=== PATIENT | female | born 1965 | race Caucasian/White ===

== ENCOUNTER 2016-05-06 16:22 | Inpatient (IN) ==
[2016-05-06 18:54] LABS: BASO% 0.1 % (0.0-0.8); EOS# 0.04 X1000 (0.0-0.7); EOS% 0.2 % (0.0-10.0); HEMATOCRIT 30.8 % (37.0-47.0); IMM GRAN# 0.22 X1000 (0.0-0.04); IMM GRAN% 1.1 % (0.0-0.5); LYMPH# 1.52 X1000 (1.2-3.4); LYMPH% 7.6 % (20.5-51.1); MANUAL DIFF NEEDED? NO; MCH 27.4 PG (27-31); MCHC 32.5 g/dL (33-37); MCV 84.4 FL (81-99); MONO# 1.55 X1000 (0.11-0.59); MONO% 7.7 % (1.7-9.3); MPV 10.1 FL (7.4-10.4); NEUT% 83.3 % (42.2-75.2); PLT 421 X1000 (130-400); RBC 3.65 XMIL (4.2-5.4)
[2016-05-06 19:20] LABS: ALBUMIN 3.1 g/dL (3.5-5.0); CALCIUM 9.3 mg/dL (8.8-10.2); POTASSIUM 5.5 mmol/L (3.5-5.1); TOTAL BILIRUBIN 0.35 mg/dL (0.20-1.00); TOTAL PROTEIN 7.5 g/dL (6.3-8.3)
[2016-05-06 20:44] LABS: HEMOGLOBIN A1C 15.8 % (4.8-6.0)
[2016-05-06] MEDS ORDERED: CIPRO 400 MG/D5W 200 ML IV SCH (21:00)
[2016-05-06] MEDS ORDERED: ZOFRAN IV PRN (21:35)
[2016-05-06] MEDS: PROTONIX IV SCH (22:05)
[2016-05-06] MEDS: NS 1,000 ML IV SCH (22:05)
[2016-05-06] MEDS: HUMALOG SUBQ SCH (22:05)
[2016-05-06] MEDS: LIPITOR PO SCH (22:06)
[2016-05-07] MEDS: MERREM 1 GM in NS 50 ML IV SCH ×3 (00:03→23:11)
[2016-05-07] MEDS ORDERED: VELTASSA PO ONE (00:52)
[2016-05-07 01:22] LABS: URINE MICRO REVIEW NEEDED? NO; URINE SOURCE CLEAN CATCH
[2016-05-07 01:26] LABS: BILIRUBIN URINE NEGATIVE (NEGATIVE); BLOOD URINE NEGATIVE (NEGATIVE); COLOR YELLOW; GLUCOSE URINE >1000 mg/dL (NEGATIVE); LEUKOCYTES URINE SMALL (NEGATIVE); NITRITE URINE NEGATIVE (NEGATIVE); PROTEIN URINE NEGATIVE (NEGATIVE); SP GRAVITY URINE 1.018; TURBIDITY URINE CLEAR (CLEAR); UROBILINOGEN URINE NORMAL (NORMAL)
[2016-05-07 01:28] LABS: UR EPITHELIAL CELLS <10 /HPF (<10); URINE BACTERIA NEGATIVE /HPF; URINE CULTURE NEEDED? YES; URINE RBC <10 /HPF (<10)
--- NOTE | 2016-05-07 03:12 | HISTORY AND PHYSICAL ---
DATE OF ADMISSION: 05/06/2016 HISTORY OF PRESENT ILLNESS: Ms. Blackwood is a 51-year-old female who was direct admission to the hospital today under the care of Dr. Walter with podiatry. The patient presented to his office today for complaints of a wound on her right great toe. The patient reports that she first noted a sore on her right great toe approximately 2 weeks ago and it progressively has gotten worse. The patient reports that she has also had some previous problems with sores to her right lower extremity that she has been seeing a gun stock checker for as well. The patient had approximately 2 quarter sized wounds noted to her right [place] area. The patient also has some erythema noted in the surrounding areas around these wounds as well. On examination, the patient's right great toe is swollen and also has some necrotic tissue noted. There is some erythema that extends into her foot as well. The patient also reports that she has been running fever. She states that approximately 2 weeks ago she went to an urgent care and was diagnosed with an upper respiratory infection and was placed on an antibiotic. She states that she went back approximately 1 week later because she was not feeling better and was diagnosed with the flu, and was also given a Tamiflu prescription. The patient also does report having a nonproductive cough as well. The patient denies any pain in her foot at this time, though she does report some decreased sensation though this has been ongoing for quite some time and could likely be related to diabetic neuropathy. The patient does also report some associated symptoms of headache and dizziness over the past few weeks as well. The patient does state that when her blood sugars have been elevated in the past, she also had similar symptoms. The patient states that for the past 2 weeks that she has not been taking her diabetic medications especially her insulin due to she has not been eating much. She has had decreased appetite, decreased oral intake of food as well as fluids. She has had some nausea as well. The patient was seen by Dr. Walter today in his office and was diagnosed with gangrene of her right great toe. Dr. Walter direct admitted her under his care and consulted the hospitalist service for medical management. He plans to perform amputation of her right great toe and any infected tissue in the right foot as well. Also, upon examination, the patient did have some bilateral crackles noted upon auscultation. Chest x-ray does appear to show that the patient has a left lower lobe pneumonia, so at this time we will treat her for this as well. We will collect blood cultures as well as sputum cultures. REVIEW OF SYSTEMS: A 14-point review of systems was conducted with the patient and all were negative except for pertinent positives mentioned in above HPI. The patient denies any chest pain, shortness of breath, abdominal pain, vomiting, diarrhea, or constipation. She denies any dysuria, urinary frequency, or pain in the lower extremities. PAST MEDICAL HISTORY: 1. Diabetes mellitus type 2. 2. Hypertension. 3. Hyperlipidemia. PAST SURGICAL HISTORY: 1. Hysterectomy. 2. Tubal ligation. SOCIAL HISTORY: Patient denies tobacco, alcohol, or illicit drug use. She currently works at [employer] in [place]. She does report having to stand for long hours on her feet at work. FAMILY MEDICAL HISTORY: Positive for diabetes mellitus, hypertension, and congestive heart failure in her father. Her biological mother with cervical cancer. Her sister has a history of colon cancer and thyroid disease. ALLERGIES: Patient reports allergy to penicillin stating she had some slight swelling of her lips and a rash on her neck and chest. She denied any swelling of her throat, tongue, or shortness of breath. HOME MEDICATIONS: 1. Amlodipine 5 mg p.o. daily. 2. Lipitor 80 mg p.o. daily. 3. Benadryl Allergy 25 mg p.o. daily. 4. Doxycycline 100 mg p.o. daily. 5. Famotidine 20 mg p.o. daily. 6. Furosemide 20 mg p.o. daily. 7. Gemfibrozil 600 mg p.o. daily. 8. Novolin 70/30 at 70 units subQ b.i.d. 9. Metformin 1000 mg p.o. b.i.d. 10.Ramipril 10 mg p.o. daily. 11.Onglyza 5 mg p.o. daily. 12.Maxzide 37.5/25 mg capsule 1 p.o. daily. DIAGNOSTIC DATA: Laboratory results: White blood cell count 20.09, red blood cell count 3.65, hemoglobin 10, hematocrit 30.8, platelet count 421. Sodium 134, potassium 5.5, chloride 79, bicarb 24, BUN 50, creatinine 1.6, GFR is 34. Glucose is 580, hemoglobin A1c is 15.8. Calcium 9.3. Total bilirubin is 0.35. AST 21, ALT 17, alkaline phosphatase 174. EKG shows sinus tachycardia at the rate of 112, QTC is 450. Chest x-ray shows left lower lobe pneumonia, though we are awaiting official radiology over read. PHYSICAL EXAMINATION: VITAL SIGNS: Temperature of 100.4, heart rate 110, respirations 20, blood pressure 112/53, oxygen saturation is 96% room air. GENERAL: Ms. Blackwood is a pleasant, obese, 51-year-old female who is resting comfortably in the inpatient bed. She is in no acute distress. She is awake, alert, and able to answer all questions appropriately. HEENT: Head is atraumatic, normocephalic. Pupils are equal, round, reactive to light, 3 mm bilaterally and brisk. Oral mucosa is moist. Oropharynx was clear. NECK: Supple. CARDIOVASCULAR: Patient has S1, S2 present. She does have a slight systolic murmur noted. The patient has regular heart rate and rhythm. PULMONARY: Patient has symmetrical chest expansion noted bilaterally. Lung sounds are clear to auscultation in bilateral upper yuen. In the lower lung yuen, the patient did have crackles bilaterally. ABDOMEN: Soft, nontender, nondistended. Patient does have a protuberant abdomen noted. Bowel sounds were present in all 4 quadrants. Normoactive. EXTREMITIES: The patient does have necrotic tissue noted to her right great toe with area of surrounding erythema which extends into her midfoot as well. There is some slight swelling to this area as well. The patient does have some erythema that surrounds 2 approximately quarter size sores on her right anterior lower extremity. These wounds are open though and do not have any drainage or active bleeding noted. Except for these wounds that I just described, all other extremities are within normal limits. No other signs of clubbing, cyanosis, and edema noted. Pulse, motor and sensory are intact to all extremities as well. Pedal pulses are 3+ bilaterally. The patient does report she has some slight decreased sensation in her bilateral feet. She reports this is not a new onset. INTEGUMENTARY: Patient's skin is pink, warm, dry, and intact. No lesions or sores noted except for the previously mentioned sores noted to her right great toe and right anterior lower extremity. NEUROLOGICAL: Patient is alert and oriented to person, place, time, and situation. Cranial nerves II through XII are grossly intact. ASSESSMENT AND PLAN: 1. Gangrene of the right great toe. Dr. Walter does plan to do a right great toe amputation in the morning. We will refer to him for further management of this. The patient has been Merrem 1 gram IV q12 hours for renal dosing due to her infected right great toe as well as diagnosis of left lower lobe pneumonia. Blood cultures have been obtained. We will await the results of those and continue to follow. 2. Left lower lobe pneumonia. We will continue with the above treatment with Merrem antibiotic. Sputum culture and blood culture have been obtained. We will do incentive spirometry, aggressive pulmonary toilet, DuoNeb, TOBY nebulizer treatments q4-6 hours p.r.n. as needed. 3. Leukocytosis. This is likely secondary to right great toe infection and pneumonia. We will continue above treatment for #1 and #2. Continue to follow. 4. Uncontrolled diabetes mellitus type 2. The patient did admit that she has not been taking her diabetic medications as prescribed due to she has had a decreased appetite. The patient's hemoglobin A1c was elevated at 15.8. At this time, the patient's kidney function is also down with creatinine of 1.6 and GFR of 34. We will hold her oral diabetic medications and place her on a high dose sliding-scale insulin Lispro. We also placed an order for the patient to have a assurance senior manager consultation as well. We will do pattern fingerstick blood sugars and continue to follow. 5. Acute kidney injury. This could be likely secondary to decreased oral fluid intake as well as infection and could have been complicated by oral diabetic medications as well as blood pressure medicines. We will continue with gentle fluid resuscitation of normal saline at 100 mL an hour and we will hold her oral diabetic medications and Ramipril at this time. 6. Hypertension. We will continue the patient on Norvasc. We will hold her Ramipril. Blood pressures at this time are controlled with last blood pressure being 112/53. We will monitor this closely and continue to follow. 7. Hyperlipidemia. We will continue the patient's atorvastatin. The patient will be placed on the medical floor with telemetry. She will have vital signs q8 hours, strict intake and output, pattern fingerstick blood sugars, DVT prophylaxis at this time and until surgery. We will provide her with SCDs. We will await the patient to have surgery and we will monitor her condition to determine further VTE prophylaxis. She will be placed on a diabetic diet. We will also perform an echo tomorrow to further evaluate her cardiac murmur. We will also repeat a CBC, BMP, and also placed order for magnesium, PT and PTT in the morning. The patient's potassium was slightly elevated at 5.5. We have placed an order for 1 time dose of Veltassa 8.4 grams p.o. and will repeat an BMP in the morning and monitor this closely. Further orders and recommendations pending hospital course, diagnostic studies, and physician evaluation. Dictated by KATHLEEN Dewey for Rory Mendoza MD
--- NOTE | 2016-05-07 05:41 | EKG Report ---
Test Performed on : 05/06/2016 8:27:25 PM Test Reason : Right Toe Necrosis, Surgical Pt Blood Pressure : / mmHG Vent. Rate : 112 BPM Atrial Rate : 112 BPM P-R Int : 142 ms QRS Dur : 098 ms QT Int : 330 ms P-R-T Axes : 041 040 036 degrees QTc Int : 450 ms Sinus tachycardia. Otherwise normal ECG No previous ECGs available Confirmed by Dennis Epstein MD ([id number]) on 05/07/2016 9:56:01 PM
[2016-05-07 06:21] LABS: INR 1.17; PROTIME 12.4 Seconds (9.2-11.7)
[2016-05-07 06:31] LABS: CALCIUM 9.2 mg/dL (8.8-10.2); MAGNESIUM 1.7 mg/dL (1.5-2.7); POTASSIUM 4.4 mmol/L (3.5-5.1)
[2016-05-07 06:44] LABS: BASO% 0.1 % (0.0-0.8); EOS# 0.04 X1000 (0.0-0.7); EOS% 0.2 % (0.0-10.0); HEMATOCRIT 29.7 % (37.0-47.0); HEMOGLOBIN 9.6 g/dL (12.0-16.0); LYMPH# 1.54 X1000 (1.2-3.4); LYMPH% 8.7 % (20.5-51.1); MANUAL DIFF NEEDED? NO; MCH 27.5 PG (27-31); MCHC 32.3 g/dL (33-37); MCV 85.1 FL (81-99); MONO# 1.46 X1000 (0.11-0.59); MONO% 8.2 % (1.7-9.3); MPV 10.4 FL (7.4-10.4); NEUT% 82.8 % (42.2-75.2); PLT 417 X1000 (130-400); RBC 3.49 XMIL (4.2-5.4)
[2016-05-07] MEDS: HUMALOG SUBQ SCH ×4 (07:52→23:11)
[2016-05-07] MEDS ORDERED: BACITRACIN ONE (08:53)
[2016-05-07] MEDS: NORVASC PO SCH (09:00)
[2016-05-07] MEDS ORDERED: DILAUDID PCA VIAL ONE (10:40)
[2016-05-07] MEDS ORDERED: MORPHINE ONE (10:56)
--- NOTE | 2016-05-07 11:01 | Diag Imaging Result Document ---
PROCEDURE NAME: CHEST-PORTABLE - 05/06/2016 SINGLE FRONTAL RADIOGRAPH OF THE CHEST: COMPARISON: None available. FINDINGS: The lungs are grossly clear. There is no discrete pleural fluid collection or pneumothorax. The cardiomediastinal silhouette and upper airway are grossly unremarkable. IMPRESSION: No evidence of acute chest pathology.
[2016-05-07] MEDS ORDERED: SODIUM CHLORIDE 0.9% INJ PRN (11:05)
[2016-05-07] MEDS ORDERED: PHENERGAN IV PRN (11:05)
[2016-05-07] MEDS ORDERED: ZOFRAN IV PRN (11:05)
[2016-05-07] MEDS ORDERED: DILAUDID PCA VIAL IV PRN (11:05)
[2016-05-07] MEDS ORDERED: NARCAN IV PRN (11:05)
[2016-05-07] MEDS ORDERED: LR 1,000 ML IV SCH (11:06)
--- NOTE | 2016-05-07 11:11 | OPERATIVE NOTE ---
PROCEDURE DATE: 05/07/2016 PREOPERATIVE DIAGNOSIS: Infection and gangrenous right hallux, right foot. POSTOPERATIVE DIAGNOSIS: Infection and gangrenous right hallux, right foot. PROCEDURE PERFORMED: Incision and drainage with deep debridement of tissue and bone, right foot, with amputation of the right hallux. SURGEON: Nick Walter DPM ANESTHESIA: General. HEMOSTASIS: Thigh tourniquet, 350 mmHg. DESCRIPTION OF PROCEDURE: The patient was brought to the operating room and placed on the table in supine position. General anesthesia was then induced. The patient was then prepped and draped in the usual aseptic manner. The procedure was begun by exsanguinating the leg and raising the thigh tourniquet to 350 mmHg. We used a fishmouth-type of incision to basically amputate the hallux at the 1st MPJ level due to the severe necrosis of the distal aspect of the toe. Once the initial incision was made, there was obvious pus noted on the dorsal aspect of the foot and this was cultured for Gram stain, aerobic and anaerobic. We then disarticulated the toe at the 1st metatarsophalangeal joint and noted that there was still some infection proximal to that area, so we resected the 1st metatarsal head and removed the sesamoids. There was a track of infection and pus tracking deep into the plantar aspect through the 1st interspace and this was explored and dissected away of all the pus and nonviable tissue and irrigated well. The entire dorsal aspect of the foot was, in essence, degloved from the underlying soft tissue, and there was a large pocket of pus coursing proximally to near the dorsolateral midfoot to rear foot, again containing some infected subcutaneous fat and tissue and pus. Once all this was evacuated and debrided, we made some openings in the skin on the dorsolateral aspect of the midfoot as well as dorsolateral aspect of the forefoot and, again, 1 on the plantar aspect of the 1st interspace to allow for adequate drainage of all the areas of infection. We then irrigated the wound copiously with the Pulsavac with 3 L of normal saline impregnated with bacitracin solution. We packed the wound. This was after the tourniquet was released and hemostasis was achieved. We packed the wound with Iodoform gauze with drains exiting the apertures that I mentioned previously and dressed it with Betadine dressing and Kerlix. She tolerated the procedure and anesthesia well and left the operating room with vital signs stable and CFT intact. It should be noted that the infection at this point does not appear to be involving the 2nd toe or metatarsal, although the entire dorsal surface of the foot, that whole flap, was compromised and we will just have to see how that does clinically in the next couple of days.
--- NOTE | 2016-05-07 12:48 | PROGRESS NOTE ---
DATE: 05/07/2016 SUBJECTIVE: Patient looks well. She is hungry. OBJECTIVE: Blood pressure 128/64, heart rate 103, respiratory rate 18, temperature was 98.2 degrees. Cardiovascular: Regular rate and rhythm. Pulmonary: Bilateral breath sounds. Clear to auscultation. GI: Soft, nontender, nondistended. Bowel sounds are positive. Extremities: No clubbing or cyanosis. Lymphatics: No peripheral edema. Neurological: Nonfocal. LABORATORY DATA: Unremarkable. PROBLEM LIST: 1. So in any case, the problem is uncontrolled diabetes. I am going to start Lantus, continue Humalog and follow. 2. Gangrenous right toe, status post resection per Dr. Walter. She is on Merrem. We will continue to monitor. 3. Acute kidney injury, dehydrated. We will continue IV fluids and follow. Hold any nephrotoxic drugs. 4. Hypertension. Continue medications and monitor. DISPOSITION: Pending her surgical course.
[2016-05-07] MEDS ORDERED: DIPRIVAN 1% ONE ×2 (13:12→13:15)
[2016-05-07] MEDS ORDERED: FENTANYL ONE (13:15)
[2016-05-07] MEDS ORDERED: LR 1,000 ML ONE (13:55)
[2016-05-07] MEDS ORDERED: XYLOCAINE-MPF 2% ONE (13:55)
[2016-05-07] MEDS: LANTUS SUBQ SCH (16:00)
--- NOTE | 2016-05-07 16:18 | ECHO REPORT ---
ORDER DATE: 05/07/2016 INDICATION: Systolic murmur. PREOPERATIVE EVALUATION FINDINGS: 1. This is an extremely difficult study with poor resolution of the endocardial borders. 2. Right atrium appears to be normal in size but overall limited visualization of the right heart structures. 3. There is mild tricuspid regurgitation. RV systolic pressure of 27. 4. Normal RV size and systolic function. 5. Trace pulmonic insufficiency. 6. Normal apparent left atrial size but again poor 2 dimensional imaging of the left atrium. 7. No mitral prolapse. Mild mitral regurgitation. 8. Normal LV size, end-diastolic dimension of 5 cm. There is borderline left ventricular hypertrophy with a posterior and interventricular septal wall thickness of 1.1 and 1.2 cm respectively. Normal LV systolic function. The estimated EF is greater than 55%. There is no clear evidence of segmental wall motion abnormalities but secondary to poor resolution of the endocardial borders it is extremely difficult to visualize. 9. Aortic valve is calcified. Limited visualization on 2-dimensional imaging. There is likely moderate aortic stenosis. The peak gradient across valve is 37 with a mean of 22. The valve area by planimetry is 1.2 cm2. The velocity ratio of 0.4 would suggest the degree of stenosis is in the moderate range. No evidence of aortic insufficiency. 10. Aorta appears normal on visualized segments. 11. No pericardial effusion seen.
[2016-05-07] MEDS: NS 1,000 ML IV SCH (18:03)
[2016-05-07] MEDS: PROTONIX IV SCH (23:11)
[2016-05-07] MEDS: LIPITOR PO SCH (23:11)
[2016-05-08] MEDS: LR 1,000 ML IV SCH (06:34)
[2016-05-08] MEDS: HUMALOG SUBQ SCH ×4 (06:34→20:51)
[2016-05-08 06:51] LABS: ALBUMIN 2.5 g/dL (3.5-5.0); CALCIUM 8.4 mg/dL (8.8-10.2); POTASSIUM 3.9 mmol/L (3.5-5.1); TOTAL BILIRUBIN 0.28 mg/dL (0.20-1.00); TOTAL PROTEIN 6.6 g/dL (6.3-8.3)
[2016-05-08 06:53] LABS: BASO% 0.2 % (0.0-0.8); EOS# 0.21 X1000 (0.0-0.7); EOS% 1.3 % (0.0-10.0); HEMATOCRIT 29.3 % (37.0-47.0); HEMOGLOBIN 9.2 g/dL (12.0-16.0); IMM GRAN# 0.22 X1000 (0.0-0.04); IMM GRAN% 1.4 % (0.0-0.5); LYMPH# 2.31 X1000 (1.2-3.4); LYMPH% 14.7 % (20.5-51.1); MANUAL DIFF NEEDED? YES; MCHC 31.4 g/dL (33-37); MCV 85.9 FL (81-99); MONO# 1.47 X1000 (0.11-0.59); MONO% 9.4 % (1.7-9.3); MPV 10.5 FL (7.4-10.4); PLT 435 X1000 (130-400); RBC 3.41 XMIL (4.2-5.4)
[2016-05-08 07:48] LABS: BANDS 4 % (0-1); EOS 4 % (1-10); LYMPHS 14 % (21-51); MONO 8 % (1-9)
[2016-05-08] MEDS: LANTUS SUBQ SCH (08:26)
[2016-05-08] MEDS: NORVASC PO SCH ×2 (08:26→11:53)
[2016-05-08] MEDS ORDERED: VANCOMYCIN IV PER PHARMACY MISC SCH (08:45)
[2016-05-08] MEDS ORDERED: VANCOMYCIN 2 GM in NS 500 ML IV ONE (11:00)
--- NOTE | 2016-05-08 12:24 | PROGRESS NOTE ---
DATE: 05/08/2016 Today Ms. Blackwood referred to be doing okay. She denies any fevers or any chills. OBJECTIVE: Vital signs: Her blood pressure is 107/52, pulse of 107, respirations 16, temperature is 99.6 degrees. General: Ms. Blackwood is a 51-year-old female. She was in bed. She did not seem to be in any distress. HEENT: Mucosa is pink and moist. Anicteric. Acyanotic. Neck: Supple. Chest: Good air entry bilateral. There is a few bibasilar crepitations worse on the right than the left. Cardiovascular: Regular rate and rhythm. There is a 2/6 TR murmur present. Abdomen: Soft. It is distended. There is no hepatosplenomegaly. Extremities: No pedal edema. The right lower extremity is wrapped in a sterile dressing. The left has no edema. Distal pulses were present. However there is significant impairment of pinprick sensation on the toes in glove stocking fashion. Vibration sense is also impaired in the lower distal feet. LABORATORY DATA: WBC is 15.68, hemoglobin is 9.2, platelet count of 435,000. Chemistry reviewed. Sodium is 135, potassium is 3.9, chloride 93, bicarb is 25, creatinine is 1.0, BUN is 29. CURRENT MEDICATIONS INCLUDE: 1. Acetaminophen. 2. Albuterol inhaler. 3. Amlodipine 5 mg daily. 4. Atorvastatin 80 mg at bedtime. 5. Dilaudid. 6. Insulin glargine 30 units subcutaneous. 7. Sliding scale. 8. Meropenem 1 g. 9. Zofran p.r.n. The surgery report from yesterday shows incision and drainage with deep debridement of tissue and bone right foot with amputation of the right hallux. ASSESSMENT: 1. Gangrenous right toe status post I and D and bone resection. I am suspecting there was osteomyelitis and if that is it, then the patient will need long-term antibiotics. We are still pending the culture on that however I will go ahead and consult ID since they would have to be following the patient on an outpatient basis. I would also go ahead and request a PICC line for long-term antibiotic use. 2. Acute kidney injury due to dehydration. This is improved. 3. Hypertension stable. 4. Uncontrolled diabetes mellitus with presenting A1c of 15.8. We went over some basic dietary and lifestyle modification counseling. Patient is currently on insulin regimen. We will continue with the same. 5. Peripheral diabetic neuropathy. We will start the patient on gabapentin. Of note, the patient refers to be allergic to penicillin however she seems to be tolerating very well meropenem. I am going to add vancomycin just because diabetic foot is usually polymicrobial infection until we get the ID and sensitivity from the culture.
[2016-05-08] MEDS: MERREM 1 GM in NS 50 ML IV SCH ×2 (15:38→23:34)
[2016-05-08] MEDS ORDERED: INSULIN PEN NEEDLES ONE (16:09)
[2016-05-08] MEDS: SODIUM CHLORIDE 0.9% INJ SCH (20:50)
[2016-05-08] MEDS: PROTONIX IV SCH (20:50)
[2016-05-08] MEDS: LIPITOR PO SCH (20:50)
[2016-05-08] MEDS ORDERED: LANTUS SUBQ SCH (21:00)
[2016-05-09 05:59] LABS: BASO% 0.4 % (0.0-0.8); EOS# 0.26 X1000 (0.0-0.7); EOS% 1.7 % (0.0-10.0); HEMATOCRIT 29.6 % (37.0-47.0); HEMOGLOBIN 9.4 g/dL (12.0-16.0); IMM GRAN% 2.5 % (0.0-0.5); LYMPH# 2.19 X1000 (1.2-3.4); LYMPH% 13.9 % (20.5-51.1); MANUAL DIFF NEEDED? YES; MCH 27.5 PG (27-31); MCHC 31.8 g/dL (33-37); MCV 86.5 FL (81-99); MONO# 1.43 X1000 (0.11-0.59); MONO% 9.1 % (1.7-9.3); MPV 10.1 FL (7.4-10.4); NEUT% 72.4 % (42.2-75.2); PLT 466 X1000 (130-400); RBC 3.42 XMIL (4.2-5.4)
[2016-05-09 06:27] LABS: AGAP 12; BUN 18 mg/dL (8-22); CALCIUM 8.3 mg/dL (8.8-10.2); CHLORIDE 95 mmol/L (98-107); COSMO 279; POTASSIUM 4.2 mmol/L (3.5-5.1); SODIUM 134 mmol/L (136-145); TCO2 27 mmol/L (25-35)
[2016-05-09] MEDS: HUMALOG SUBQ SCH ×5 (06:44→22:01)
[2016-05-09 07:26] LABS: LYMPHS 12 % (21-51); MONO 7 % (1-9)
[2016-05-09] MEDS: LANTUS SUBQ SCH ×3 (07:36→22:00)
[2016-05-09] MEDS ORDERED: VANCOMYCIN 1.6 GM in NS 250 ML IV SCH (11:00)
[2016-05-09] MEDS: NORVASC PO SCH (11:06)
[2016-05-09] MEDS: LR 1,000 ML IV SCH ×2 (11:06→16:44)
[2016-05-09] MEDS: MERREM 1 GM in NS 50 ML IV SCH (11:07)
[2016-05-09] MEDS ORDERED: NS 250 ML ONE (13:06)
[2016-05-09] MEDS ORDERED: CALMOSEPTINE OINTMENT TOP PRN (13:32)
[2016-05-09] MEDS: MIRALAX PO SCH (16:38)
[2016-05-09] MEDS: MAXIPIME 2 GM/NS 100 ML IV SCH (16:38)
--- NOTE | 2016-05-09 16:50 | PROGRESS NOTE ---
DATE: 05/09/2016 SUBJECTIVE: This morning, Ms. Blackwood referred to be doing okay. She refers that Dr. Walter had already seen and dressed the right foot. OBJECTIVE: Vital signs: Blood pressure is 120/69, pulse of 113, respiration is 16, temperature 98.8 degrees. General: Ms. Blackwood is a 51-year-old female. She was in bed. Not in any distress. HEENT: Mucosa is pink and moist. Anicteric and acyanotic. Neck: Supple. Chest: Air entry is bilaterally reduced. There are a few bilateral end-expiratory wheezes. Cardiovascular: Regular rate and rhythm. Abdomen: Distended, but nontender. Bowel sounds hypoactive. Extremities: No pedal edema. The right lower extremity is wrapped in a sterile dressing. The left has no edema. Distal pulses were present. However, there was a significant sensation impairment in a glove stocking fashion, especially in the left lower extremity. LABORATORY DATA: WBC is 15.71, hemoglobin 9.4, platelet count 466,000. Sodium is 135, potassium 4.2, chloride 95, bicarb is 26, glucose is 265, CRP 266, ESR of 132. Wound culture from the right toe grows gram-negative rods. ASSESSMENT: 1. Gangrene to right foot status post right big toe incision and drainage with bone resection by Dr. Walter. Patient is currently on Cefepime. Cultures have been showing gram-negative. We are still pending the identification and sensitivity. 2. 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 My understanding is some bone material has been resected; however, they plan to take the patient back tomorrow for more bone resection. 3. Acute kidney injury due to dehydration. This is improved. Patient is actually having some wheezing in the lungs, so we are going to discontinue the intravenous fluids. 4. Hypertension. Controlled. 5. Uncontrolled diabetes mellitus. Presenting A1c 15.8. Patient fasting glucose continues to be high. We are going to increase the insulin. 6. Peripheral diabetic neuropathy. Patient is on gabapentin. 7. The patient is doing relatively fine. I have not seen any note from Dr. Walter today in the electronic medical record. I am not sure if any has been written in the chart. However, the patient said the data network architect saw her early this morning and there is the plan to take her to operating room tomorrow morning.
--- NOTE | 2016-05-09 17:14 | CONSULTATION ---
DATE OF CONSULTATION: 05/09/2016 CONCLUSION: The patient is admitted to the hospital and is postoperative debridement and amputation of the right great toe for a very serious infection of the foot. It involved gangrene and also bone was involved. The infection extended approximately from the end of the foot. The patient's urine is growing yeast, but I think this is asymptomatic and does not require treatment. RECOMMENDATIONS: I have switched the patient to cefepime. I have requested that the nurse observe the patient during the first dose of cefepime. DISCUSSION: The patient tells me approximately a week ago, she started developing infection in her right great toe. It was red and swollen and eventually developed a gangrene. She was admitted to the hospital and has undergone surgery, including amputation of the great toe, as well as an incision and drainage and debridement of her foot. A culture coming from the foot is growing a gram-negative zakia. The patient's CBC shows a white count of 15,710, hemoglobin 9.4, and platelet count 466,000. Patient's creatinine is 0.8. The GFR is greater than 60. Urinalysis showed small amount of leukocytes and negative for bacteria. A culture from the foot is growing a gram-negative zakia, which as of yet has not been identified. The anaerobic culture is pending. The urine culture grew yeast. Blood cultures are sterile. The patient's lab work shows a white count of 15,710, hemoglobin 9.4, and platelet count of 466,000. The blood cultures are sterile. Swab for influenza is negative. Echocardiogram shows no vegetation. Chest x-ray shows clear lung yuen. PAST MEDICAL HISTORY/REVIEW OF SYSTEMS: Eyes and Ears: She denies difficulty hearing or seeing. Neck: No stiffness. Respiratory: No cough or shortness of breath. Cardiac: No chest pain or palpitations. Gastrointestinal: No nausea or vomiting. The patient states it has been about 4 days since she has passed a stool. Genitourinary: No dysuria or flank pain. Neurologic: No seizures. No motor or sensory loss. SOCIAL HISTORY: The patient does not smoke cigarettes. She rarely drinks 1 beer. She works at [employer]. She is . She has dogs for pets. ALLERGIES: Her chart lists allergies to penicillin, manifested by rash. The patient has tolerated meropenem while in a hospital and previously tolerated Keflex well as an outpatient. HOME MEDICATIONS: Include the following: She is on triamterene/ hydrochlorothiazide, Benadryl, Lipitor, doxycycline, Onglyza, metformin, famotidine, Lasix, ramipril, gemfibrozil, amlodipine, and insulin. PHYSICAL EXAMINATION: Vital Signs: Temperature is 98.8 degrees, pulse 113, respirations 16, blood pressure 120/69. The patient's weight is listed as 207 pounds. General: This is an obese, middle-aged female. She is in no acute distress. Head, eyes, ears, nose, and throat: She can hear my spoken words and see near objects. No drainage noted from the nose or ears. In the mouth, there no white patches. Neck: No meningismus. No masses to palpation. Thorax: No increased AP diameter. Lungs: Clear to auscultation. Cardiovascular: Heart rate is regular. Peripheral pulses were diminished. Abdomen: Soft and nontender. Neurologic: Patient is alert. She can move her extremities. There is no tremor. Her sensation is intact to touch. Her memory, as regarding her medical history, is intact. Extremities: The patient's right foot and ankle has a dressing on it. The dressing is intact. Proximally from the approximately from the from the dressing. There is erythema involving the leg up to the mid calf level. Thank you for the consult. [facility] FACILITYEsther
[2016-05-09] MEDS: DUONEB (A & A) INH PRN (20:06)
[2016-05-09] MEDS: PROTONIX IV SCH (22:01)
[2016-05-09] MEDS: NEURONTIN PO SCH (22:02)
[2016-05-09] MEDS: LIPITOR PO SCH (22:02)
[2016-05-10] MEDS: MAXIPIME 2 GM/NS 100 ML IV SCH ×2 (02:17→15:00)
[2016-05-10 05:56] LABS: MANUAL DIFF NEEDED? NO
[2016-05-10 06:00] LABS: BASO% 0.3 % (0.0-0.8); EOS# 0.27 X1000 (0.0-0.7); EOS% 1.6 % (0.0-10.0); HEMOGLOBIN 8.9 g/dL (12.0-16.0); IMM GRAN# 0.51 X1000 (0.0-0.04); LYMPH# 2.87 X1000 (1.2-3.4); LYMPH% 17.1 % (20.5-51.1); MCH 27.5 PG (27-31); MCHC 31.8 g/dL (33-37); MCV 86.4 FL (81-99); MONO# 1.58 X1000 (0.11-0.59); MONO% 9.4 % (1.7-9.3); MPV 9.8 FL (7.4-10.4); NEUT% 68.6 % (42.2-75.2); PLT 522 X1000 (130-400); RBC 3.24 XMIL (4.2-5.4)
[2016-05-10 06:43] LABS: AGAP 11; BUN 14 mg/dL (8-22); CALCIUM 8.6 mg/dL (8.8-10.2); CHLORIDE 97 mmol/L (98-107); COSMO 276; SODIUM 136 mmol/L (136-145); TCO2 28 mmol/L (25-35)
[2016-05-10] MEDS: HUMALOG SUBQ SCH ×3 (07:00→15:09)
[2016-05-10] MEDS: DUONEB (A & A) INH PRN ×4 (07:34→19:25)
--- NOTE | 2016-05-10 07:57 | CONSULTATION ---
DATE OF CONSULTATION: 05/10/2016 ADDENDUM: PAST MEDICAL HISTORY: Positive for diabetes mellitus, hypertension, and hyperlipidemia. SURGICAL HISTORY: Positive for hysterectomy and tubal ligation. SOCIAL HISTORY: The patient denies cigarette smoking, alcohol consumption, or illegal drug use. 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 FAMILY HISTORY: Positive for diabetes mellitus, hypertension, congestive heart failure, cancer, and thyroid disease. ALLERGIES: Includes penicillin, which caused rash and swelling. HOME MEDICATIONS: Include amlodipine, Lipitor, Benadryl, doxycycline, famotidine, furosemide, gemfibrozil, Novolin, metformin, ramipril, Onglyza, and Maxzide.
--- NOTE | 2016-05-10 08:59 | PROGRESS NOTE ---
DATE: 05/10/2016 PRESENT ILLNESS: The patient has infection of her right foot. There is involvement of the right great toe, which has been amputated. Osteomyelitis and gangrene are both present. Patient also has a urine culture growing yeast, but I think this is asymptomatic. MEDICATIONS: The patient is on cefepime. PHYSICAL EXAMINATION: Vital Signs: Temperature is 98.8, pulse 107, respirations 16, blood pressure 131/68. General: This is an obese, but otherwise fairly healthy-appearing, middle-aged female who is in no acute distress. Lungs: Clear to auscultation. Cardiovascular: Regular heart rate. Abdomen: Soft and nontender. Extremities: The left arm has a PICC in place. The site is not erythematous or swollen. The right foot has a large dressing around it. The distal part of the right leg is less erythematous than it was yesterday. LAB AND X-RAY: The patient's culture from her foot grew Proteus and Enterobacter.. Her CBC shows a white count of 16,760, hemoglobin 8.9, and platelet count 522,000. Creatinine is 0.6. ASSESSMENT AND PLAN: The patient has a severe diabetic foot infection. My plan is to continue cefepime pending any further culture results. Patient is to have surgery performed tomorrow on the foot. The patient's comorbidity, her main one, is diabetes mellitus. The patient assures me that she plans to keep her diabetes under better control. For now, as mentioned above, I would like to keep her on cefepime pending final culture results, but if the 2 organisms named above, namely Proteus and Enterobacter are the only ones that can grow out, I think the patient can then be discharged on a quinolone antibiotic such as Levaquin 500 mg p.o. daily. I plan to treat the patient for at least 6 weeks with the antibiotics.
[2016-05-10] MEDS: NORVASC PO SCH (09:11)
[2016-05-10] MEDS: LANTUS SUBQ SCH ×2 (09:11→21:26)
[2016-05-10] MEDS: MIRALAX PO SCH (09:11)
[2016-05-10] MEDS: NEURONTIN PO SCH ×2 (09:11→21:27)
[2016-05-10] MEDS: LR 1,000 ML IV SCH (14:59)
[2016-05-10] MEDS ORDERED: HUMULIN R SUBQ SCH (17:00)
--- NOTE | 2016-05-10 17:23 | Diag Imaging Result Document ---
PROCEDURE NAME: CHEST-PORTABLE - 05/10/2016 SINGLE FRONTAL RADIOGRAPH OF THE CHEST: COMPARISON: 05/06/2016. FINDINGS: There has been interval placement of a left PICC line. The tip appears to project over the right atrium just below the atriocaval junction. There has been interval development of pulmonary venous congestion and at least moderate interstitial edema. There has been development of small bilateral pleural effusions. Cardiac silhouette is grossly stable. IMPRESSION: 1. Interval development of pulmonary venous congestion and interstitial edema with small bilateral effusions as described. 2. Interval placement of left-sided PICC line that probably is just below the atriocaval junction in the right atrium.
--- NOTE | 2016-05-10 17:53 | PROGRESS NOTE ---
DATE: 05/10/2016 SUBJECTIVE: This morning she referred to be doing a whole lot better. Did not actually have any complaints. OBJECTIVE: Vital signs: Blood pressure is 104/58, pulse of 103, respirations 17, temperature is 98.1 degrees. General: Ms. Blackwood 51-year-old female. She was in bed. Did not seem to be in any remarkable distress. HEENT: Mucosa is pink and moist. Anicteric. Acyanotic. Neck: Supple. Chest: Good air entry bilaterally. No crepitations. No rhonchi. Cardiovascular: Regular rate and rhythm. Abdomen: Soft. Mildly distended. Bowel sounds are hypoactive. No hepatosplenomegaly. Extremities: No edema on the left. Distal pulses are present but very weak. There is significant sensation impairment in glove stocking fashion. The right lower extremity is wrapped in sterile dressing. 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 The wound culture is positive for proteus mirabilis and Enterobacter aerogenes from the wound. ASSESSMENT: 1. Gangrene to right foot status post right big toe incision and drainage with bone resection by Dr. Walter. I was able to talk to him today and he plans to take the patient to the OR tomorrow and get some more debridement. The wound culture is positive for Proteus and Enterobacter aerogenes. 2. Right big toe osteomyelitis status post bone resection. Patient will be taken to OR tomorrow probably to do more bone resection and debridement of infected tissue. 3. Acute kidney injury due to dehydration. Patient presented with creatinine of 1.6 and this has completely been resolved. 4. Uncontrolled diabetes mellitus. Presenting A1c was 15.8. We currently have the patient on glargine 40 units in the morning and I increased the evening dose to 20. I am also going to add 7 units of regular insulin with each meal and also continue with the sliding scale. 5. Peripheral diabetic neuropathy. Will continue with the gabapentin. GENERAL PLAN: 1. Patient seems to be doing relatively fine. She is currently on cefepime. She is being followed by both Dr. Adams and Dr. Walter. I was able to talk to Dr. Walter today and he plans to take the patient to OR tomorrow and do some more debridement since today on dressing he saw some more pus in the incision area 2. We also have made some changes to the patient's insulin regimen for a tighter blood glucose control. 3. I think patient is going to be here in the hospital for a little while as we try to get better control on both the infection and on her blood glucose. ROSY
[2016-05-10] MEDS ORDERED: HUMALOG SUBQ SCH (21:00)
[2016-05-10] MEDS: LIPITOR PO SCH (21:27)
[2016-05-10] MEDS: PROTONIX IV SCH (21:27)
[2016-05-10] MEDS: SODIUM CHLORIDE 0.9% INJ SCH (21:27)
[2016-05-11] MEDS: MAXIPIME 2 GM/NS 100 ML IV SCH ×2 (02:22→14:50)
[2016-05-11 06:34] LABS: BASO% 0.5 % (0.0-0.8); EOS% 2.4 % (0.0-10.0); HEMATOCRIT 28.6 % (37.0-47.0); HEMOGLOBIN 8.9 g/dL (12.0-16.0); IMM GRAN# 0.73 X1000 (0.0-0.04); IMM GRAN% 4.3 % (0.0-0.5); LYMPH# 2.39 X1000 (1.2-3.4); LYMPH% 14.2 % (20.5-51.1); MANUAL DIFF NEEDED? YES; MCH 27.2 PG (27-31); MCHC 31.1 g/dL (33-37); MCV 87.5 FL (81-99); MONO# 1.61 X1000 (0.11-0.59); MONO% 9.6 % (1.7-9.3); MPV 9.8 FL (7.4-10.4); PLT 563 X1000 (130-400); RBC 3.27 XMIL (4.2-5.4)
[2016-05-11 07:16] LABS: AGAP 14; BUN 17 mg/dL (8-22); CALCIUM 8.6 mg/dL (8.8-10.2); CHLORIDE 96 mmol/L (98-107); COSMO 281; EOS 4 % (1-10); LYMPHS 22 % (21-51); MONO 12 % (1-9); POTASSIUM 4.7 mmol/L (3.5-5.1); SODIUM 136 mmol/L (136-145); TCO2 26 mmol/L (25-35)
--- NOTE | 2016-05-11 07:59 | PROGRESS NOTE ---
DATE: 05/11/2016 PRESENT ILLNESS: The patient has a severe infection of the right foot. The right great toe has been amputated and today she is scheduled to go to the operating room for further debridement of the wound. MEDICATIONS: The patient currently is on cefepime. PHYSICAL EXAMINATION: Vital Signs: Temperature is 98.3 degrees, pulse 117, respirations 18, blood pressure 133/80. Generally: This is an obese, somewhat ill-appearing, middle-aged female. She is in no acute distress. Specifically she is not complaining of any pain in her right foot which was operated on. Lungs: Clear to auscultation. Cardiovascular: Regular heart rate. Abdomen: Soft and nontender. Extremities: There is a large dressing on the patient's foot the distal part of the leg that was erythematous is almost completely back to his normal color. In the left arm, the patient has a PICC in place. The site is not erythematous or purulent. LAB AND X-RAY: Chest x-ray shows pulmonary venous congestion with edema and pleural effusions. Creatinine is 0.7. GFR is greater than 60. [place] [address], hemoglobin 8.9, and platelet count 563,000. ASSESSMENT AND PLAN: Patient has a severe diabetic foot infection. I plan to continue her current antibiotics. She is scheduled to have surgery on her foot today. COMORBIDITIES: Patient's comorbidity is diabetes mellitus for which the patient agreed she did not keep under very good control prior to her present illness. My long-term plan will be that when the patient's foot is better, that I will be able to switch her to Levaquin which she can take by mouth when she is discharged to go home. I plan to treat the patient for a total of 6 weeks.
[2016-05-11] MEDS ORDERED: ATIVAN IV PRN (08:41)
[2016-05-11] MEDS ORDERED: LACTULOSE PO ONE (08:41)
[2016-05-11] MEDS ORDERED: PERICOLACE PO ONE (08:42)
--- NOTE | 2016-05-11 09:48 | PROGRESS NOTE ---
DATE: 05/11/2016 IDENTIFYING DATA: Ms. Blackwood was admitted on 05/[address] Menchaca. SUBJECTIVE: A 51-year-old who was a direct admission to the hospital under Dr. Nick Walter, podiatry. The patient presented to his office with complaints of wound in her right great toe, where she first noted a sore in the right toe apparently 2 weeks ago. Progressively got worse. 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 The patient has apparently 2 quarter-size wounds noted in her right lang[place] area. Patient also had some erythema noted surrounding area around these wounds as well on examination. Presented to the emergency room. PAST MEDICAL HISTORY: 1. Diabetes mellitus type 2. 2. Hypertension. 3. Hyperlipidemia. PAST SURGICAL HISTORY: Hysterectomy, tubal ligation. OBJECTIVE: General: Today, at the bedside. She apparently slept pretty well. She is complaining of some panic attacks. She did not have any pain in the foot. The foot was elevated and wrapped. Vital Signs: Temperature 98.6, pulse 107, respirations 25, blood pressure 112/62. Lungs: Are clear in all lung yuen. Cardiovascular: Regular rhythm and rate without murmur or S3. : Good urine output, over a liter. LAB: Reviewed. White count 16,820, hematocrit was 28, platelet count 563,000. Sodium 136, potassium 4.7, chloride 96, bicarb 26, BUN 17, creatinine 0.7, blood sugar 316, 232. Calcium 8.6. ASSESSMENT AND PLAN: 1. Severe infection of the right foot, right great toe has been amputated. Is scheduled to go to the operating room for further debridement of the wound. She is on cefepime. Continue present regimen. Imagine she will need several weeks of antibiotics. 2. Blood sugars appeared well-controlled. Review of her orders, I do not see any change. 3. She has complained of constipation. I think I will put her on some lactulose as well. I think they tried Docusate suppository. Will try a little bit of lactulose and try suppositories later.
[2016-05-11] MEDS: MIRALAX PO SCH ×2 (10:06→14:48)
[2016-05-11] MEDS: NORVASC PO SCH (10:07)
[2016-05-11] MEDS: NEURONTIN PO SCH ×2 (10:08→20:31)
[2016-05-11] MEDS: HUMULIN R SUBQ SCH ×2 (11:36→17:04)
[2016-05-11] MEDS ORDERED: XYLOCAINE 1% ONE (11:44)
[2016-05-11] MEDS ORDERED: MARCAINE 0.25% PF ONE (11:44)
[2016-05-11] MEDS ORDERED: BACITRACIN ONE (11:44)
[2016-05-11] MEDS ORDERED: KETAMINE (DOSE) ONE (11:56)
[2016-05-11] MEDS: HYDROGEN PEROXIDE SOLUTION ONE ×2 (12:19→15:14)
[2016-05-11] MEDS ORDERED: VERSED ONE (12:56)
[2016-05-11] MEDS: DUONEB (A & A) INH PRN (13:57)
--- NOTE | 2016-05-11 14:17 | OPERATIVE NOTE ---
PROCEDURE DATE: 05/11/2016 PREOP DIAGNOSIS: Infected and abscessed right foot. POSTOP DIAGNOSIS: Infected and abscessed right foot. PROCEDURE: Incision and drainage with debridement and removal of infected tissue and bone, right foot. SURGEON: Dr. Walter. ANESTHESIA: Local IV sedation. HEMOSTASIS: Esmarch tourniquet. DESCRIPTION OF PROCEDURE: Patient was brought to operating room, placed on the table in supine position. Once adequate IV sedation was achieved, a total 10 mL of 1:1 mixture 0.25% Marcaine plain, 1% lidocaine plain were infiltrated about the right foot to achieve anesthesia. Patient was then prepped and draped in usual aseptic manner. Procedure was begun by examining the foot and then using the Esmarch as a tourniquet at the ankle joint level. The procedure involved removing the necrotic dorsal flap of skin that had turned gangrenous since last operation and also debriding some. There was a pus pocket going on the dorsal aspect of the foot dorsolaterally. This was followed with an incision coursing dorsolaterally and the entire area was opened up and evacuated and debrided of any nonviable and infected tissue. There was also a little bit of pus in the 1st interspace between the 1st and 2nd metatarsals down in that space and so that area was opened up again and debrided as well as removing some 1st metatarsal bone material. Once the debridement was completed and all the pus was removed and the tissues looked healthy, the tourniquet was released. Bleeding was noted. Hemostasis was achieved using the Bovie. We then irrigated the foot copiously with the pulse lavage system impregnated with 3 L of normal saline and bacitracin solution. We then packed the wound with Iodoform gauze and Betadine dressing was applied. She left the operating room vital signs stable. CMT intact to the right foot and will return to the floor and be followed until discharge.
[2016-05-11] MEDS: HUMALOG SUBQ SCH ×3 (14:50→20:32)
[2016-05-11] MEDS ORDERED: INSULIN PEN NEEDLES ONE (15:53)
[2016-05-11] MEDS: LR 1,000 ML IV SCH ×2 (17:42→17:51)
[2016-05-11] MEDS: PERICOLACE PO SCH (17:51)
[2016-05-11] MEDS: PROTONIX IV SCH ×2 (20:31→23:34)
[2016-05-11] MEDS: SODIUM CHLORIDE 0.9% INJ SCH (20:31)
[2016-05-11] MEDS: LANTUS SUBQ SCH (20:31)
[2016-05-11] MEDS: LIPITOR PO SCH (20:31)
[2016-05-12] MEDS: LACTULOSE PO SCH ×3 (04:54→17:06)
[2016-05-12] MEDS: PERICOLACE PO SCH ×3 (04:54→17:06)
[2016-05-12 05:52] LABS: MANUAL DIFF NEEDED? NO
[2016-05-12 06:01] LABS: BASO% 0.4 % (0.0-0.8); EOS# 0.46 X1000 (0.0-0.7); EOS% 2.5 % (0.0-10.0); HEMATOCRIT 27.9 % (37.0-47.0); HEMOGLOBIN 8.8 g/dL (12.0-16.0); IMM GRAN# 0.69 X1000 (0.0-0.04); IMM GRAN% 3.8 % (0.0-0.5); LYMPH# 2.51 X1000 (1.2-3.4); LYMPH% 13.9 % (20.5-51.1); MCH 27.6 PG (27-31); MCHC 31.5 g/dL (33-37); MCV 87.5 FL (81-99); MONO# 1.48 X1000 (0.11-0.59); MONO% 8.2 % (1.7-9.3); MPV 9.9 FL (7.4-10.4); NEUT% 71.2 % (42.2-75.2); PLT 600 X1000 (130-400); RBC 3.19 XMIL (4.2-5.4)
[2016-05-12] MEDS: HUMALOG SUBQ SCH ×4 (06:18→21:25)
[2016-05-12] MEDS: MAXIPIME 2 GM/NS 100 ML IV SCH (06:24)
[2016-05-12] MEDS: DUONEB (A & A) INH PRN ×5 (08:05→22:50)
[2016-05-12] MEDS: LANTUS SUBQ SCH ×2 (08:57→21:25)
[2016-05-12] MEDS: HUMULIN R SUBQ SCH ×3 (08:58→17:07)
[2016-05-12] MEDS: MIRALAX PO SCH (08:58)
[2016-05-12] MEDS: NORVASC PO SCH ×2 (08:58→08:59)
[2016-05-12] MEDS: NEURONTIN PO SCH ×2 (08:58→21:25)
--- NOTE | 2016-05-12 10:50 | PROGRESS NOTE ---
DATE: 05/12/2016 SUBJECTIVE: She is up, sitting in the chair, feels good. No complaints of pain. She had a pretty uneventful night. She did have some vivid dreams and a little confusion with the Ativan last night, but the Ativan seems to be helping the panic attacks. OBJECTIVE: Temperature 98 degrees, pulse 100, respirations 18, blood pressure 101/76. Lungs are clear in all lung yuen. Cardiovascular: Regular rhythm and rate without murmur or S3. Abdomen is soft. Skin is warm and dry. Urine output 1000 mL. Blood sugar 121, 146. LABORATORY DATA: White count 18,040. Hematocrit 27, platelet count 600,000. Hematocrit is stable. Blood sugars: 394, 183, 121; so sugar is doing a little better. ASSESSMENT AND PLAN: 1. Severe infection of the right foot. Right great toe amputated. She had debridement yesterday. Continue present IV antibiotics. 2. Blood sugars appear better controlled. Continue to check pattern blood sugars. 3. Complaint of constipation. I think she had some resolution. 4. General anxiety and some panic attacks. We are using the Ativan. REVIEW OF ORDERS: I do not see any change at this time.
--- NOTE | 2016-05-12 15:30 | Diag Imaging Result Document ---
PROCEDURE NAME: CHEST-PORTABLE - 05/12/2016 SINGLE FRONTAL RADIOGRAPH OF THE CHEST: COMPARISON: 05/10/2016. FINDINGS: The left PICC line is in stable position. Inspiration is suboptimal. There are stable increased central vascular markings and increased interstitial markings suggesting pulmonary venous congestion and interstitial edema. There appear to be small effusions that are essentially stable. No new consolidations is identified. Cardiac silhouette is stable. IMPRESSION: Stable chest suggesting pulmonary edema.
[2016-05-12] MEDS: LR 1,000 ML IV SCH (17:15)
--- NOTE | 2016-05-12 17:28 | PROGRESS NOTE ---
DATE: 05/12/2016 PRESENT ILLNESS: The patient yesterday underwent surgery on her right foot. This is the 2nd operation that she has had on that foot. The operative note mentions that there was an incision and drainage and debridement of infected tissue and bone. Also in the operative report pus was encountered and necrotic tissue also was found. The patient's white count is increasing despite getting an antibiotic that covered the organisms that were grown from the wound. The patient's chest x-ray shows improvement in the patient's all pulmonary edema pattern. MEDICATIONS: The patient is on cefepime. PHYSICAL EXAMINATION: Vital Signs: Temperature is 98 degrees, pulse 111, respirations 18, blood pressure 101/76. Generally: The patent patient is obese. She is in no acute distress. Lungs: Clear to auscultation. Cardiovascular: Regular heart rate. Abdomen: Soft and nontender. Extremities: The patient's right leg has a large dressing around it. There is no visible erythema. LAB AND X-RAY: [place] [address], hemoglobin 8.8, and platelet count 600,000. Chest x-ray is compatible with pulmonary edema. A culture taken from surgery yesterday is growing gram negative rods. ASSESSMENT AND PLAN: Patient has a diabetic right foot infection for which she has had surgery on it. She continues to have an elevated white count presumably meaning that the infection is not being cleared appropriately. RECOMMENDATIONS: I have discontinued cefepime and have started the patient on meropenem. The patient's comorbidity is that she is a diabetic. In view of the fact that abscess and necrotic tissue and bone involvement has been found in her foot and in view of the fact that her white count remains elevated, as mentioned above, I am going to switch to meropenem and I think I will need to keep the patient on IV antibiotics for a while until we can get the white blood cell count down. Also will need to find out the identity of the gram-negative zakia that was grown from the most recent surgery. Patient's main comorbidity is diabetes mellitus.
[2016-05-12] MEDS: MERREM 1 GM in NS 50 ML IV SCH (17:38)
[2016-05-12] MEDS: SODIUM CHLORIDE 0.9% INJ SCH (21:25)
[2016-05-12] MEDS: LIPITOR PO SCH (21:25)
[2016-05-12] MEDS: PROTONIX IV SCH (21:25)
[2016-05-13] MEDS: MERREM 1 GM in NS 50 ML IV SCH ×3 (01:33→16:46)
[2016-05-13] MEDS: DUONEB (A & A) INH PRN ×6 (03:39→22:29)
[2016-05-13 06:18] LABS: MANUAL DIFF NEEDED? NO
[2016-05-13] MEDS: LACTULOSE PO SCH ×2 (06:41→19:17)
[2016-05-13] MEDS: PERICOLACE PO SCH ×2 (06:41→19:17)
[2016-05-13 06:43] LABS: BASO% 0.4 % (0.0-0.8); EOS# 0.39 X1000 (0.0-0.7); EOS% 2.8 % (0.0-10.0); HEMATOCRIT 26.2 % (37.0-47.0); IMM GRAN# 0.52 X1000 (0.0-0.04); IMM GRAN% 3.8 % (0.0-0.5); LYMPH# 2.14 X1000 (1.2-3.4); LYMPH% 15.6 % (20.5-51.1); MCH 27.2 PG (27-31); MCHC 30.5 g/dL (33-37); MCV 89.1 FL (81-99); MONO# 1.28 X1000 (0.11-0.59); MONO% 9.3 % (1.7-9.3); MPV 9.7 FL (7.4-10.4); NEUT% 68.1 % (42.2-75.2); PLT 557 X1000 (130-400); RBC 2.94 XMIL (4.2-5.4)
[2016-05-13] MEDS: HUMALOG SUBQ SCH ×3 (06:54→16:43)
[2016-05-13 06:55] LABS: AGAP 10; ALBUMIN 2.5 g/dL (3.5-5.0); ALKALINE PHOSPHATASE 177 U/L (32-104); BUN 12 mg/dL (8-22); CALCIUM 8.1 mg/dL (8.8-10.2); CHLORIDE 98 mmol/L (98-107); COSMO 280; GOT 36 U/L (10-30); GPT 39 U/L (10-36); POTASSIUM 4.1 mmol/L (3.5-5.1); SODIUM 136 mmol/L (136-145); TCO2 28 mmol/L (25-35); TOTAL PROTEIN 6.8 g/dL (6.3-8.3)
[2016-05-13] MEDS: NEURONTIN PO SCH ×2 (08:37→21:50)
[2016-05-13] MEDS: NORVASC PO SCH ×2 (08:37→08:44)
[2016-05-13] MEDS: MIRALAX PO SCH (08:37)
[2016-05-13] MEDS: HUMULIN R SUBQ SCH ×3 (08:38→16:44)
[2016-05-13] MEDS: LANTUS SUBQ SCH ×2 (08:38→21:50)
[2016-05-13] MEDS: ATIVAN PO PRN ×2 (09:19→22:17)
--- NOTE | 2016-05-13 09:52 | PROGRESS NOTE ---
DATE: 05/13/2016 SUBJECTIVE: She is sitting up in a chair. She is having a little bit of itching in that foot. Talked briefly with Dr. Walter yesterday and to Dr. Adams. Dr. Adams' concern is that we probably need to treat this as if it is true osteomyelitis and commit her to 6 weeks of antibiotics. We will discuss this more with Dr. Adams and Dr. Walter. She will stay here this weekend. I think he is thinking about trying to do some partial closure on that foot this week, Dr. Walter is. OBJECTIVE: Vital signs: Temp 98.3 degrees, pulse 116, respirations 16, blood pressure 107/55. Lungs: Clear in all lung yuen. Cardiovascular: Regular rhythm and rate without murmur or S3. Abdomen: Soft. Of note, she has had a bowel movement, so had results from her lactulose and Colace. Skin: Warm and dry. LAB: Blood sugars 181, 271, 275. Lab from today, white count 13,760, hematocrit 26, platelet count 557,000. Electrolytes: Sodium 136, potassium 4.1, chloride 98, bicarb 28, BUN 12, creatinine 1.7. Blood sugars 181, 275, 254. ASSESSMENT AND PLAN: 1. She has undergone surgery on her right foot which is her 2nd operation. In looking at the op note, there was incision and drainage and debridement of infected deep tissue and bone. Also pus noted, necrotic tissue. Her blood count is increasing despite getting antibiotic covering organisms that are growing from the wound. I think we need to continue present antibiotics. See if the cultures display anything else. We probably need to consider if white count continues going up covering her for gram positive organisms as well. I think we need to commit her to 6 weeks of antibiotics based on high suspicion of osteomyelitis. 2. Constipation which has improved. 3. Blood pressure is controlled. 4. Her pulmonary edema has improved. I do not see clinical suspicion nor do I see signs radiographically that support pneumonia.
--- NOTE | 2016-05-13 16:22 | PROGRESS NOTE ---
DATE: 05/13/2016 PRESENT ILLNESS: The patient has a severe diabetic right foot infection. She has had 2 debridements of her foot done by Dr. Walter. A culture taken from the last surgery is growing Proteus mirabilis. MEDICATIONS: The patient has been switched to meropenem. This will be day 1 of treatment with the antibiotic. PHYSICAL EXAMINATION: Vital Signs: Temperature is 97.8 degrees, pulse 114, respirations 20, blood pressure 95/72. General: This is an obese but otherwise healthy-appearing young woman who is in no acute distress. Lungs: Clear to auscultation. Cardiovascular: Regular heart rate. Abdomen: Soft and nontender. The patient's right foot has a dressing around it. The dressing is intact. There is some erythema of the leg proximal to the dressing. ASSESSMENT AND PLAN: The patient is scheduled for surgery tomorrow. I have elevated the foot of the patient's bed with the manual Gatch and told her it would be best to elevate her foot as much as possible until her surgery scheduled for tomorrow. I also plan to continue meropenem. Patient has had approximately 12 days of antibiotic therapy. COMORBIDITY: She is diabetic and had not been keeping real tight control on her diabetes but she states that she will be from now on.
[2016-05-13] MEDS ORDERED: INSULIN PEN NEEDLES ONE (16:38)
[2016-05-13] MEDS: LR 1,000 ML IV SCH (16:50)
[2016-05-13] MEDS: PROTONIX IV SCH (21:50)
[2016-05-13] MEDS: LIPITOR PO SCH (21:50)
[2016-05-13] MEDS: SODIUM CHLORIDE 0.9% INJ SCH (21:50)
[2016-05-14] MEDS: HUMALOG SUBQ SCH ×6 (00:48→23:54)
[2016-05-14] MEDS: MERREM 1 GM in NS 50 ML IV SCH ×3 (01:35→16:49)
[2016-05-14] MEDS: ATIVAN PO PRN ×2 (02:38→21:15)
[2016-05-14] MEDS: LACTULOSE PO SCH ×2 (06:28→18:33)
[2016-05-14] MEDS: PERICOLACE PO SCH ×2 (06:28→18:33)
[2016-05-14] MEDS: DUONEB (A & A) INH PRN ×2 (07:37→19:27)
[2016-05-14] MEDS: NEURONTIN PO SCH ×2 (09:44→21:15)
[2016-05-14] MEDS: MIRALAX PO SCH (09:44)
[2016-05-14] MEDS: NORVASC PO SCH (09:45)
[2016-05-14] MEDS ORDERED: HUMULIN R SUBQ SCH (12:00)
[2016-05-14] MEDS: LANTUS SUBQ SCH ×2 (12:19→21:15)
[2016-05-14] MEDS ORDERED: BACITRACIN ONE (13:22)
[2016-05-14] MEDS ORDERED: MARCAINE 0.25% PF ONE (13:22)
[2016-05-14] MEDS ORDERED: XYLOCAINE 1% ONE (13:22)
--- NOTE | 2016-05-14 14:23 | PROGRESS NOTE ---
DATE: 05/14/2016 SUBJECTIVE: She states that she feels pretty good. Dr. Adams decided to put her on Meropenem and I understand that she may have some more debridement or she may need to have further closing of the foot by Dr. Walter today. OBJECTIVE: Vital signs: On exam today temp is 98.6, pulse 109, respirations 22, and blood pressure 132/65. Respiratory: The lungs are clear in all lung yuen. Cardiovascular: Regular rhythm and rate without murmur or S3. Gastrointestinal: The abdomen is soft. Skin: Warm and dry. Blood sugar fingersticks were 253, 289, and 338. ASSESSMENT AND PLAN: 1. She has undergone surgery of the right foot, a second operation. I think she is scheduled for surgery to do a partial closure. Dr. Adams is on the case and wants to treat this as probable osteomyelitis given the close proximity to the bone so most likely she will need 6 weeks of antibiotics. 2. Constipation. It has improved. 3. Blood pressure, controlled. 4. Pulmonary edema which is mild. They gave her a little bit of Lasix today.
[2016-05-14] MEDS ORDERED: LR 1,000 ML ONE (16:27)
--- NOTE | 2016-05-14 16:51 | OPERATIVE NOTE ---
PROCEDURE DATE: 05/14/2016 PREOPERATIVE DIAGNOSIS: Nonhealing wound right foot. POSTOPERATIVE DIAGNOSIS: Nonhealing wound right foot. PROCEDURE: Debridement of nonviable tissue and bone with 1st ray resection and complex wound closure right foot. SURGEON: Nick Walter DPM ANESTHESIA: Local with IV sedation. HEMOSTASIS: Ankle tourniquet 250 mmHg. DESCRIPTION OF PROCEDURE: The patient was brought to the operating room, placed on the table in supine position. Once IV sedation was achieved, we infiltrated 15 mL of 1:1 mixture of 0.25% Marcaine plain and 1% lidocaine plain to achieve anesthesia. Patient was then prepped and draped in the usual aseptic manner. The procedure was begun by exsanguinating the right foot and raising the ankle tourniquet to 250 mmHg. We then did remove the periosteum from the exposed 1st metatarsal shaft down to the base of the bone. We resected the distal aspect of the bone with sagittal saw and sent that as specimen #1, labeled distal 1st metatarsal. We then resected a smaller piece of bone on the proximal aspect and labeled it proximal 1st metatarsal shaft and this was to get a histological examination and confirmation that there is no osteomyelitis left in the foot. The remainder of the procedure involved freshening up the wound edges and removing any of the devitalized soft tissue that was left in the wound until good bleeding tissue was noted throughout the wound and there was no nonviable tissue. We then copiously irrigated the wound with 3 L of normal saline impregnated with bacitracin solution. We closed over the exposed 1st metatarsal bone with the periosteum that we had left intact after the dissection and then as best we could closed up the large wound to make it as small a wound as possible using 2-0 nylon. We used 2-0 Vicryl to close the periosteum. The wound was then packed with iodoform gauze and regular gauze impregnated with bacitracin solution. We then used Iodoform and a Betadine dressing. Hemostasis was achieved using the Bovie and the tourniquet was released. Capillary refill time was intact to the remaining 4 toes. It should be noted that throughout the procedure there was no pus or odor or any signs of infection at all in the foot. We then after the dressing was applied, applied a posterior splint. She left the operating room with vital signs stable, CFT intact and will be returned to the floor and followed until discharge.
[2016-05-14] MEDS ORDERED: VERSED ONE (16:55)
[2016-05-14] MEDS ORDERED: FENTANYL ONE (16:55)
[2016-05-14] MEDS ORDERED: DIPRIVAN 1% ONE (16:56)
[2016-05-14] MEDS: HUMULIN R SUBQ SCH (17:00)
[2016-05-14] MEDS: LR 1,000 ML IV SCH (18:09)
[2016-05-14] MEDS ORDERED: LASIX IV ONE (18:55)
[2016-05-14] MEDS: SODIUM CHLORIDE 0.9% INJ SCH (21:14)
[2016-05-14] MEDS: PROTONIX IV SCH (21:14)
[2016-05-14] MEDS: LIPITOR PO SCH (21:14)
[2016-05-15] MEDS: DUONEB (A & A) INH SCH ×7 (00:07→23:21)
[2016-05-15] MEDS ORDERED: LASIX IV ONE (01:24)
[2016-05-15] MEDS: MERREM 1 GM in NS 50 ML IV SCH ×3 (01:43→17:31)
[2016-05-15 01:44] LABS: ALLEN TEST YES; BE 6.1 mmoll (-3.0-3.0); BLOOD TYPE ARTERIAL; DRAW SITE R BRACHIAL; METHB 0.8 % (0.0-1.5); PO2(98.6) 62 mmHg (60-100); SAMPLE BLOOD; THB 8.7 g/dL (11.5-17.4); pH(98.6) 7.33 (7.35-7.45)
[2016-05-15 01:46] LABS: MODALITY CANNULA; PCO2(98.6) 63 mmHg (35-45)
[2016-05-15 02:01] LABS: MANUAL DIFF NEEDED? NO
[2016-05-15 02:03] LABS: BASO% 0.3 % (0.0-0.8); EOS# 0.38 X1000 (0.0-0.7); EOS% 2.6 % (0.0-10.0); HEMATOCRIT 27.7 % (37.0-47.0); HEMOGLOBIN 8.3 g/dL (12.0-16.0); IMM GRAN# 0.43 X1000 (0.0-0.04); LYMPH# 1.87 X1000 (1.2-3.4); LYMPH% 12.9 % (20.5-51.1); MCH 27.2 PG (27-31); MCV 90.8 FL (81-99); MONO# 1.05 X1000 (0.11-0.59); MONO% 7.2 % (1.7-9.3); MPV 9.1 FL (7.4-10.4); PLT 612 X1000 (130-400); RBC 3.05 XMIL (4.2-5.4)
[2016-05-15 02:21] LABS: AGAP 11; BUN 13 mg/dL (8-22); CALCIUM 8.3 mg/dL (8.8-10.2); CHLORIDE 97 mmol/L (98-107); COSMO 281; POTASSIUM 4.2 mmol/L (3.5-5.1); SODIUM 138 mmol/L (136-145); TCO2 30 mmol/L (25-35)
[2016-05-15 03:18] LABS: ALLEN TEST NO; BE 8.3 mmoll (-3.0-3.0); BLOOD TYPE ARTERIAL; DRAW SITE L BRACHIAL; METHB 0.6 % (0.0-1.5); O2(CT) 15.1 mL/dL (15.0-23.0); PO2(98.6) 104 mmHg (60-100); SAMPLE BLOOD; SAO2 95.9 % (95.0-100.0); SRATE 12 BPM; THB 11.2 g/dL (11.5-17.4); pH(98.6) 7.37 (7.35-7.45)
[2016-05-15 03:20] LABS: MODALITY BI PAP; PCO2(98.6) 61 mmHg (35-45)
[2016-05-15 05:27] LABS: ALLEN TEST NO; BE 10.3 mmoll (-3.0-3.0); BLOOD TYPE ARTERIAL; DRAW SITE R BRACHIAL; METHB 1.1 % (0.0-1.5); PO2(98.6) 88 mmHg (60-100); SAMPLE BLOOD; SAO2 95.4 % (95.0-100.0); SRATE 12 BPM; THB 8.2 g/dL (11.5-17.4); pH(98.6) 7.37 (7.35-7.45)
[2016-05-15 05:28] LABS: MODALITY BI PAP; PCO2(98.6) 64 mmHg (35-45)
[2016-05-15 05:35] LABS: MANUAL DIFF NEEDED? NO
[2016-05-15 05:49] LABS: BASO% 0.2 % (0.0-0.8); EOS# 0.24 X1000 (0.0-0.7); EOS% 1.6 % (0.0-10.0); HEMOGLOBIN 7.9 g/dL (12.0-16.0); IMM GRAN# 0.33 X1000 (0.0-0.04); IMM GRAN% 2.2 % (0.0-0.5); LYMPH# 1.49 X1000 (1.2-3.4); LYMPH% 10.1 % (20.5-51.1); MCH 26.6 PG (27-31); MCHC 29.3 g/dL (33-37); MCV 90.9 FL (81-99); MONO# 0.97 X1000 (0.11-0.59); MONO% 6.6 % (1.7-9.3); MPV 9.4 FL (7.4-10.4); NEUT% 79.3 % (42.2-75.2); PLT 473 X1000 (130-400); RBC 2.97 XMIL (4.2-5.4)
[2016-05-15] MEDS: HUMALOG SUBQ SCH ×4 (06:54→20:39)
[2016-05-15] MEDS: PERICOLACE PO SCH ×2 (06:54→17:37)
[2016-05-15] MEDS: LACTULOSE PO SCH ×2 (06:54→17:38)
--- NOTE | 2016-05-15 09:18 | Diag Imaging Result Document ---
PROCEDURE NAME: CHEST-PORTABLE - 05/15/2016 SINGLE FRONTAL RADIOGRAPH OF THE CHEST: COMPARISON: 05/12/2016. FINDINGS: Left PICC line is stable. Inspiration is suboptimal. There is persistent increased central vascular markings suggesting pulmonary venous congestion and increased interstitial markings with a central and basilar predominance, indicating pulmonary edema, plus or minus pneumonia. This may have marginally worsened when compared to the previous study, at least at the left lower lung zone. No new consolidations are identified, otherwise. Cardiac silhouette is stable. There are probably bilateral effusions. IMPRESSION: Questionable marginal worsening of infiltrate at the left lower lung zone. Otherwise, stable chest.
[2016-05-15] MEDS: MIRALAX PO SCH (09:34)
[2016-05-15] MEDS: LANTUS SUBQ SCH ×2 (09:36→20:40)
[2016-05-15] MEDS: NEURONTIN PO SCH ×2 (09:37→20:53)
[2016-05-15] MEDS: NORVASC PO SCH (09:38)
[2016-05-15] MEDS: HUMULIN R SUBQ SCH ×3 (09:40→18:14)
[2016-05-15] MEDS: LASIX IV SCH (12:36)
--- NOTE | 2016-05-15 12:41 | Diag Imaging Result Document ---
PROCEDURE NAME: CHEST-PORTABLE - 05/15/2016 SINGLE FRONTAL RADIOGRAPH OF THE CHEST: COMPARISON: 05/15/2016. FINDINGS: The left PICC line is in stable position. Bilateral infiltrates with a central and basilar predominance are essentially stable, likely representing pulmonary edema plus or minus pneumonia. No new consolidations are identified. Cardiac silhouette is stable. IMPRESSION: Stable chest.
--- NOTE | 2016-05-15 12:52 | PROGRESS NOTE ---
DATE: 05/15/2016 SUBJECTIVE: She had more trouble breathing. The CO2 went up and she was put on BiPAP. Did feel like she was getting quite a bit of fluids and some fluid retention. Family at the bedside. She remains afebrile.Vital signs: Temperature 97.3 degrees, pulse 95, respirations 20, blood pressure 130/65. HEENT: Pupils are equal and round. Lungs: Clear in all lung yuen. Cardiovascular exam: Regular rhythm and rate without murmur or S3. Abdomen: Soft. Skin: Warm and dry. : Urine output 2800. LABS: White count 14,700, hematocrit 27, platelet count 473,000. Sodium 138, potassium 4.2, chloride 97, bicarbonate 30, BUN 13, creatinine 0.6. Blood sugar is 311, 191, 150. X-RAYS: Chest x-ray: Questionable marginal worsening infiltrate in left lower lung zone. Inspirations suboptimal. Persistent increased central vascular markings suggesting pulmonary venous congestion. Increased interstitial markings with central and basilar prominence, including pulmonary edema plus or minus pneumonia. ASSESSMENT AND PLAN: 1. Pulmonary venous hypertension. Also, going to treat for possible pneumonia and give her some intravenous Lasix. She did require BiPAP last night. Hopefully, that will improve. 2. We are going to treat her foot as probable osteomyelitis. Will need a total of 6 weeks to 8 weeks of antibiotics. So, continue present treatment. 3. Constipation. 4. Blood pressure control. Orders reviewed: We will give her Lasix 40 mg IV q. 12 hours. Bowels have moved. They requested we hold lactulose and Colace. 5. Diabetes mellitus type 2. Sugars appear to be under a little better control.
[2016-05-15] MEDS: TYLENOL PO PRN (14:35)
[2016-05-15] MEDS: LIPITOR PO SCH (20:53)
[2016-05-15] MEDS: PROTONIX IV SCH (20:53)
[2016-05-15] MEDS: SODIUM CHLORIDE 0.9% INJ SCH (20:53)
[2016-05-15] MEDS ORDERED: BLISTEX MEDICATED BERRY LIP BALM TOP PRN (20:55)
[2016-05-16] MEDS: MERREM 1 GM in NS 50 ML IV SCH ×3 (02:22→18:02)
[2016-05-16] MEDS: LASIX IV SCH ×2 (02:22→14:27)
[2016-05-16] MEDS: TYLENOL PO PRN ×2 (03:28→12:29)
[2016-05-16] MEDS: DUONEB (A & A) INH SCH ×6 (03:30→23:07)
[2016-05-16 05:35] LABS: MANUAL DIFF NEEDED? NO
[2016-05-16 05:38] LABS: BASO% 0.2 % (0.0-0.8); EOS# 0.26 X1000 (0.0-0.7); HEMATOCRIT 26.4 % (37.0-47.0); HEMOGLOBIN 7.8 g/dL (12.0-16.0); IMM GRAN# 0.21 X1000 (0.0-0.04); IMM GRAN% 1.6 % (0.0-0.5); LYMPH# 1.96 X1000 (1.2-3.4); LYMPH% 15.1 % (20.5-51.1); MCH 27.1 PG (27-31); MCHC 29.5 g/dL (33-37); MCV 91.7 FL (81-99); MONO# 1.05 X1000 (0.11-0.59); MONO% 8.1 % (1.7-9.3); MPV 9.4 FL (7.4-10.4); PLT 568 X1000 (130-400); RBC 2.88 XMIL (4.2-5.4)
[2016-05-16 05:57] LABS: AGAP 9; BUN 9 mg/dL (8-22); CALCIUM 8.6 mg/dL (8.8-10.2); CHLORIDE 95 mmol/L (98-107); COSMO 280; SODIUM 140 mmol/L (136-145); TCO2 36 mmol/L (25-35)
[2016-05-16] MEDS: LACTULOSE PO SCH ×2 (06:15→18:01)
[2016-05-16] MEDS: PERICOLACE PO SCH ×2 (06:15→18:03)
[2016-05-16] MEDS: HUMALOG SUBQ SCH ×3 (08:18→18:01)
[2016-05-16] MEDS: HUMULIN R SUBQ SCH ×3 (08:19→18:00)
[2016-05-16] MEDS: LANTUS SUBQ SCH ×2 (09:54→22:32)
[2016-05-16] MEDS: MIRALAX PO SCH (10:22)
[2016-05-16] MEDS: NEURONTIN PO SCH ×2 (10:22→22:31)
[2016-05-16] MEDS: NORVASC PO SCH (10:23)
--- NOTE | 2016-05-16 15:22 | PROGRESS NOTE ---
DATE: 05/16/2016 SUBJECTIVE: She is breathing much better. Feeling better, so hoping to go home tomorrow. She remains afebrile. OBJECTIVE: Vital signs: Temperature 97.9 degrees, pulse 85, respirations 16, blood pressure 113/64. Lungs: Clear in all lung yuen. Cardiovascular: Regular rhythm and rate without murmur or S3. Abdomen: Soft. Skin: Warm and dry. DIAGNOSTICS: Blood sugar 86, 118, 231. White count 13,000, hematocrit 26, platelet count 568,000. Sodium 140, potassium 4, chloride 95, bicarb 36, BUN 9, creatinine 0.6. Blood sugars 86, 129, 231. Chest x-ray: Stable chest. PICC line in stable position. Bilateral infiltrates with central and basilar prominence. Essentially stable. Likely represents pulmonary edema, plus or minus pneumonia, so we will check another chest x-ray in the morning. ASSESSMENT AND PLAN: 1. Diabetes mellitus, type 2. Sugars under better control. 2. Infectious foot and toe with debridement. Going to treat her as if she has osteomyelitis under Dr. Adams' direction, but will get at least a total of 6 weeks of antibiotics from the time of last surgery. 3. Pulmonary venous hypertension. Diuresing. She is breathing better. 4. Note that renal function looks good. Continue current medications. Right foot grew out Proteus mirabilis, and right big toe proteus mirabilis Enterobacter aerogenes. So we will continue present regimen.
[2016-05-16] MEDS ORDERED: INSULIN PEN NEEDLES ONE (16:17)
[2016-05-16] MEDS: LIPITOR PO SCH (22:31)
[2016-05-17] MEDS: LASIX IV SCH ×3 (01:16→15:02)
[2016-05-17] MEDS: MERREM 1 GM in NS 50 ML IV SCH ×3 (01:16→16:00)
[2016-05-17] MEDS: DUONEB (A & A) INH SCH ×6 (03:55→23:26)
[2016-05-17] MEDS: PROTONIX IV SCH ×3 (05:01→23:57)
[2016-05-17] MEDS: HUMALOG SUBQ SCH ×4 (05:02→20:14)
[2016-05-17] MEDS ORDERED: INSULIN PEN NEEDLES ONE (06:48)
--- NOTE | 2016-05-17 07:18 | PROGRESS NOTE ---
DATE: 05/17/2016 HISTORY OF PRESENT ILLNESS: The patient has a severe diabetic foot infection. She has had 3 surgeries on the foot. MEDICATIONS: The patient is on meropenem. This is day 5 of treatment with the antibiotic. PHYSICAL EXAMINATION: Vital Signs: Temperature is 98 degrees, pulse 108, respirations 18. Blood pressure 118/63. General: This is an obese, but otherwise healthy-appearing middle-aged female. She is in no acute distress. Lungs: Clear to auscultation. Cardiovascular: Heart rate is regular. Abdomen: Soft and nontender. The patient's right foot has a dressing around it. The dressing is intact. There is no erythema of the leg just proximal from the dressing. ASSESSMENT AND PLAN: The patient tentatively is to be sent home today. [facility] will be supplying her antibiotic at home which consists of meropenem. I plan to see the patient back in the office in 2 weeks and then again at 4 weeks and at 4 week visit most likely will be able to stop her antibiotic and take out the PICC. Patient's comorbidity is diabetes mellitus.
--- NOTE | 2016-05-17 07:21 | PROGRESS NOTE ---
DATE: 05/17/2016 LAB AND X-RAY STUDIES: There is no new x-ray today. For the labs, there [place] [address], hemoglobin 7.8, and platelet count 568,000. Creatinine 0.6. GFR is greater than 60. Patient had a chest x-ray which is consistent with pulmonary edema plus or minus pneumonia. The patient's assessment is that she has a severe diabetic foot infection involving bone and the plan is for me to continue her meropenem for 4 more weeks to complete a 6 week treatment course. COMORBIDITY: As mentioned above, the patient's main comorbidity is that she is diabetic, and unfortunately, she had not been keeping real tight control of her diabetes.
--- NOTE | 2016-05-17 07:30 | EKG Report ---
Test Performed on : 05/15/2016 00:59:44 AM Test Reason : SINUS TACH Blood Pressure : / mmHG Vent. Rate : 111 BPM Atrial Rate : 111 BPM P-R Int : 184 ms QRS Dur : 098 ms QT Int : 330 ms P-R-T Axes : 050 056 243 degrees QTc Int : [address] & T wave abnormality, consider inferolateral ischemia Abnormal ECG When compared with ECG of May 06, 2016- Inferolateral ST and T wave changes are new. Confirmed by Dennis Epstein MD ([id number]) on 05/19/2016 8:40:41 PM
[2016-05-17] MEDS: LANTUS SUBQ SCH ×2 (08:15→20:15)
[2016-05-17] MEDS: HUMULIN R SUBQ SCH ×3 (08:15→16:00)
[2016-05-17] MEDS: NEURONTIN PO SCH ×2 (08:16→20:15)
[2016-05-17] MEDS: NORVASC PO SCH (08:16)
[2016-05-17] MEDS: MIRALAX PO SCH (08:16)
--- NOTE | 2016-05-17 08:46 | Diag Imaging Result Document ---
PROCEDURE NAME: CHEST-2 VIEWS - 05/17/2016 AP AND LATERAL RADIOGRAPH OF THE CHEST: COMPARISON: 05/15/2016. FINDINGS: Left PICC line is stable. Increased central vascular markings and bibasilar infiltrates are essentially stable suggesting pulmonary edema. There appear to be bilateral effusions that are stable. No new consolidation is appreciated. Cardiac silhouette is stable. IMPRESSION: Stable chest.
[2016-05-17] MEDS ORDERED: EXTENSION SET 32 IN 4522 ONE (09:04)
[2016-05-17] MEDS ORDERED: XYLOCAINE-MPF 2% ONE (09:04)
[2016-05-17] MEDS ORDERED: LR 1,000 ML ONE (09:04)
[2016-05-17] MEDS ORDERED: ANESTHESIA PB SET 88 IN 5742 ONE (09:04)
[2016-05-17] MEDS ORDERED: VANCOMYCIN IV PER PHARMACY MISC SCH (14:00)
[2016-05-17 15:03] LABS: AGAP 12; BUN 13 mg/dL (8-22); CALCIUM 7.9 mg/dL (8.8-10.2); CHLORIDE 89 mmol/L (98-107); COSMO 286; POTASSIUM 3.3 mmol/L (3.5-5.1); SODIUM 138 mmol/L (136-145); TCO2 37 mmol/L (25-35)
[2016-05-17] MEDS: TYLENOL PO PRN (15:08)
[2016-05-17] MEDS ORDERED: HEPARIN ONE (15:29)
[2016-05-17] MEDS ORDERED: STERILE WATER INJ. INJ ONE (15:35)
[2016-05-17] MEDS ORDERED: CATHFLO IV ONE (15:35)
[2016-05-17] MEDS: VANCOMYCIN 2 GM in NS 500 ML IV SCH (16:23)
--- NOTE | 2016-05-17 16:43 | PROGRESS NOTE ---
DATE: 05/17/2016 SUBJECTIVE: She is feeling better, breathing better but she really had reservations about going home so did her family, would like to go to rehab. She remains afebrile. OBJECTIVE: Vital signs: Temperature 98.0 degrees, pulse 103, respirations 16, blood pressure 109/62. HEENT: Pupils are equal, round. CVP less than 6 cm. Lungs: Clear in all lung yuen. Cardiovascular: Regular rhythm and rate without murmur, S3. Abdomen: Soft. Skin: Is warm and dry. Urine output was 1900 mL. LAB: Reviewed from yesterday. Hematocrit 26, hemoglobin 7.8, blood sugars 223, 195, 288, 366. ASSESSMENT AND PLAN: 1. Continue antibiotic treatment for foot infection, we are going to treat as if osteomyelitis. Antibiotic home consist of meropenem. She was initially wanting to go home but she feels like she needs to go to rehab so will try and get rehab set up for her. 2. Leukocytosis I suspect related to her foot and this improving. 3. Pulmonary venous hypertension which is improved. 4. Diabetes mellitus type 2. Continue to watch sugars. They are running a little bit high. Will make some adjustments in her insulin. 5. Lastly her anemia, her hemoglobin 7.8 and this remains stable. Will not transfuse at this time.
[2016-05-17] MEDS: LACTULOSE PO SCH (18:23)
[2016-05-17] MEDS: PERICOLACE PO SCH (18:23)
[2016-05-17] MEDS: SODIUM CHLORIDE 0.9% INJ SCH (20:14)
[2016-05-17] MEDS: LIPITOR PO SCH (20:14)
[2016-05-18] MEDS: MERREM 1 GM in NS 50 ML IV SCH ×3 (00:48→17:35)
[2016-05-18] MEDS: LASIX IV SCH ×2 (00:59→13:36)
[2016-05-18] MEDS: LACTULOSE PO SCH ×3 (05:30→18:33)
[2016-05-18] MEDS: PERICOLACE PO SCH ×3 (05:31→18:33)
[2016-05-18 06:08] LABS: BASO% 0.2 % (0.0-0.8); EOS# 0.24 X1000 (0.0-0.7); EOS% 2.1 % (0.0-10.0); HEMATOCRIT 28.3 % (37.0-47.0); HEMOGLOBIN 8.3 g/dL (12.0-16.0); IMM GRAN# 0.09 X1000 (0.0-0.04); IMM GRAN% 0.8 % (0.0-0.5); LYMPH% 18.5 % (20.5-51.1); MANUAL DIFF NEEDED? YES; MCH 26.7 PG (27-31); MCHC 29.3 g/dL (33-37); MONO# 0.85 X1000 (0.11-0.59); MONO% 7.5 % (1.7-9.3); MPV 9.2 FL (7.4-10.4); NEUT% 70.9 % (42.2-75.2); PLT 554 X1000 (130-400); RBC 3.11 XMIL (4.2-5.4)
[2016-05-18 07:01] LABS: EOS 1 % (1-10); LYMPHS 6 % (21-51); MONO 4 % (1-9)
[2016-05-18] MEDS: DUONEB (A & A) INH SCH ×5 (07:31→19:54)
[2016-05-18] MEDS: HUMULIN R SUBQ SCH ×3 (09:16→17:35)
[2016-05-18] MEDS: NEURONTIN PO SCH ×2 (09:17→22:21)
[2016-05-18] MEDS: LANTUS SUBQ SCH ×2 (09:17→22:21)
[2016-05-18] MEDS: MIRALAX PO SCH (09:17)
[2016-05-18] MEDS: NORVASC PO SCH (09:17)
[2016-05-18] MEDS: HUMALOG SUBQ SCH ×3 (12:03→22:22)
--- NOTE | 2016-05-18 13:16 | PROGRESS NOTE ---
DATE: 05/18/2016 SUBJECTIVE: The patient has a severe diabetic right foot infection. MEDICATIONS: The patient is on day 6 of meropenem treatment. OBJECTIVE: Vital Signs: Temperature 98.6 degrees, pulse 105, respirations 18, blood pressure 107/57. General: This is an obese, somewhat ill-appearing, middle-aged female. She is in no acute distress. Ears, nose and throat: She can hear my spoken words. There is no white coating on her tongue. Lungs: Clear to auscultation. Cardiovascular: Heart rate is regular. Abdomen: Soft and nontender. Extremities: The dressing was taken off yesterday by Dr. Walter. The foot has a defect on the dorsal part of it. There is no skin coverage. The underlying tissue is present including the tendon. The tendon is visible. Foot is still is swollen and laterally it is erythematous. There is no odor to the foot. LABS AND X-RAYS: There is no new x-ray. The lab shows a creatinine of 0.8, GFR of greater than 60. A culture was taken from the foot yesterday and today it shows no growth. CBC shows a white count of 11,360, hemoglobin 8.3, and platelet count 554,000. ASSESSMENT AND PLAN: Patient has diabetic foot infection. Yesterday vancomycin was added to meropenem, so this would be day 1 of treatment with vancomycin and day 6 of treatment with meropenem. PATIENT'S COMORBIDITY: She is a diabetic and she did not have real tight control of her diabetes but she told me that she is going to control it much better.
[2016-05-18] MEDS: TYLENOL PO PRN (15:32)
[2016-05-18] MEDS: VANCOMYCIN 2 GM in NS 500 ML IV SCH (15:33)
--- NOTE | 2016-05-18 15:49 | PROGRESS NOTE ---
DATE: 05/18/2016 Today Ms. Blackwood referred to be doing okay. Denies any acute problems. OBJECTIVE: Vital signs: Blood pressure is 107/53, pulse of 105, respirations 18, temperature is 98.6 degrees. General: Ms. Blackwood is 51-year-old female. She is in bed, no distress. HEENT: Mucosa is pink and moist. Anicteric. Acyanotic. Neck: Supple. Chest: Good air entry bilateral. No crepitations. Cardiovascular: Regular rate and rhythm. Abdomen: Soft, is distended. Extremities: Right lower extremity is in sterile dressing. The left has about 2+ of pedal edema. ASSESSMENT: 1. Gangrene to the right foot status post incision and drainage. 2. Right big toe osteomyelitis. Patient is currently on antibiotics. 3. Uncontrolled diabetes mellitus with presenting A1c of 15.8. This is stable. 4. Peripheral diabetic neuropathy. 5. Mild fluid overload. The patient is getting furosemide. 6. 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 7. Suspected sleep apnea. PLAN: We are going to continue with the current antibiotics as per Dr. Adams and will follow up with further recommendations from the parking cashier.
[2016-05-18] MEDS: LIPITOR PO SCH (22:21)
[2016-05-18] MEDS: SODIUM CHLORIDE 0.9% INJ SCH (22:21)
[2016-05-18] MEDS: PROTONIX IV SCH (22:21)
[2016-05-19] MEDS: LASIX IV SCH (01:29)
[2016-05-19] MEDS: MERREM 1 GM in NS 50 ML IV SCH ×2 (01:29→08:42)
[2016-05-19] MEDS: DUONEB (A & A) INH SCH ×3 (04:49→08:19)
[2016-05-19 05:19] VITALS: BP 112/51
[2016-05-19 05:51] LABS: MANUAL DIFF NEEDED? NO
[2016-05-19] MEDS: HUMALOG SUBQ SCH ×2 (06:13→12:14)
[2016-05-19] MEDS: LACTULOSE PO SCH (06:14)
[2016-05-19] MEDS: PERICOLACE PO SCH (06:15)
[2016-05-19 06:22] LABS: BASO% 0.3 % (0.0-0.8); EOS# 0.31 X1000 (0.0-0.7); EOS% 3.3 % (0.0-10.0); HEMATOCRIT 28.1 % (37.0-47.0); HEMOGLOBIN 8.3 g/dL (12.0-16.0); IMM GRAN# 0.08 X1000 (0.0-0.04); IMM GRAN% 0.9 % (0.0-0.5); LYMPH# 1.93 X1000 (1.2-3.4); LYMPH% 20.8 % (20.5-51.1); MCH 26.9 PG (27-31); MCHC 29.5 g/dL (33-37); MCV 91.2 FL (81-99); MONO# 0.67 X1000 (0.11-0.59); MONO% 7.2 % (1.7-9.3); MPV 9.3 FL (7.4-10.4); NEUT% 67.5 % (42.2-75.2); PLT 572 X1000 (130-400); RBC 3.08 XMIL (4.2-5.4)
[2016-05-19 07:06] LABS: AGAP 8; ALBUMIN 2.2 g/dL (3.5-5.0); ALKALINE PHOSPHATASE 173 U/L (32-104); BUN 11 mg/dL (8-22); CHLORIDE 88 mmol/L (98-107); COSMO 280; GOT 27 U/L (10-30); GPT 22 U/L (10-36); POTASSIUM 3.9 mmol/L (3.5-5.1); SODIUM 136 mmol/L (136-145); TCO2 40 mmol/L (25-35); TOTAL PROTEIN 6.9 g/dL (6.3-8.3)
[2016-05-19] MEDS ORDERED: HUMULIN R SUBQ SCH (08:16)
[2016-05-19] MEDS ORDERED: LANTUS SUBQ SCH (08:16)
[2016-05-19] MEDS: NEURONTIN PO SCH (08:41)
[2016-05-19] MEDS: NORVASC PO SCH (08:42)
[2016-05-19] MEDS: MIRALAX PO SCH (08:44)
[2016-05-19] MEDS: HUMULIN R SUBQ SCH (08:46)
[2016-05-19] MEDS: LANTUS SUBQ SCH (08:47)
--- NOTE | 2016-05-19 09:05 | PROGRESS NOTE ---
DATE: 05/19/2016 PRESENT ILLNESS: The patient has a severely infected right foot. She has had surgery performed by Dr. Walter. MEDICATIONS: The patient currently is receiving meropenem and vancomycin. PHYSICAL EXAMINATION: Vital Signs: Temperature is 98.2 degrees, pulse 104, respirations 18, blood pressure 112/51. General: This is an obese but otherwise fairly healthy- appearing, middle- aged female. She is in no acute distress. Lungs: Clear to auscultation. Cardiovascular: Regular heart rate. Abdomen: Soft and nontender. Extremities: The patient's right foot has a large dressing around it. The dressing is intact. The patient has a PICC in her left arm. The PICC site is not erythematous or swollen. LAB AND X-RAY: CBC-WBC 9.26, hgb 9.1, platelets 572K, creatinine 0.7, GFR >60. No new radiographic study. ASSESSMENT AND PLAN: The plan from my point of view is to continue the patient' s antibiotics for a total of 6 weeks of treatment. The patient will be going to a [facility] and when she is finished there, [facility] will supply her antibiotics at home. I have requested that the patient see me in my office in 3 weeks. I think by that time she should be out of the rehab facility. The patient's main comorbidity is that she is diabetic and she has told me that she intends to keep much better control of her diabetes than she previously had been doing. MTDD
[2016-05-19 09:56] LABS: ALLEN TEST YES; BE 18.3 mmoll (-3.0-3.0); BLOOD TYPE ARTERIAL; DRAW SITE R RADIAL; O2(CT) 9.6 mL/dL (15.0-23.0); PCO2(98.6) 50 mmHg (35-45); SAMPLE BLOOD; SAO2 83.7 % (95.0-100.0); THB 8.3 g/dL (11.5-17.4); pH(98.6) 7.54 (7.35-7.45)
[2016-05-19 09:58] LABS: PO2(98.6) 47 mmHg (60-100)
[2016-05-19 09:59] LABS: MODALITY ROOM AIR
--- NOTE | 2016-05-19 14:51 | DISCHARGE SUMMARY ---
ADMISSION DATE: 05/06/2016 DISCHARGE DATE: 05/19/2016 CONSULTATIONS: 1. Dr. Nick Walter, Podiatry. 2. Dr. Vaibhav Adams, Infectious Disease. PERTINENT PROCEDURES: 1. Incision and drainage with deep debridement of tissue and bone on the right foot with amputation of the right hallux, performed by Dr. Nick Walter. 2. Incision and drainage with debridement and removal of infected tissue and bone of the right foot, performed by Dr. Nick Walter. 3. Debridement of nonviable tissue and bone with 1st ray resection and complex wound closure of the right foot, performed by Dr. Nick Walter. DISCHARGE DIAGNOSES: 1. Gangrene to the right foot status post 3 incision and drainage procedures by Dr. Nick Walter. 2. Right big toe osteomyelitis. Continue with IV antibiotics. Patient going to [facility]. 3. Uncontrolled diabetes mellitus with presenting A1c of 15.8, stable. 4. Peripheral diabetic neuropathy. Continue medications. 5. Mild fluid overload. Continue with Lasix. 6. Concentric hypertrophy cardiomyopathy secondary to underlying hypertensive heart disease. 7. Suspected sleep apnea. Patient will follow up with Dr. Valenzuela after rehab. Patient is requiring continued O2, which she will be going to rehab with. HOSPITAL COURSE: Briefly, Ms. Blackwood is a 51-year-old female who was a direct stay admission to the hospital under the care of Dr. Walter with Podiatry. Patient presented to his office with complaint of a wound on her right great toe. Patient reports that she first noted the sore on the right great toe approximately 2 weeks prior to her admission and it progressively had gotten worse. Patient had approximately a quarter-size wound noted on her right [place] area, also some erythema noted in the surrounding areas around these wounds. On examination, the patient's right great toe was swollen, also had some necrotic tissue noted, also some erythema that extended into her foot, as well. Patient reported she had been running fever and that 2 weeks prior to her admission she had been to an urgent care and was diagnosed with an upper respiratory infection, and was placed on antibiotics. She went back a week later because she was not feeling better, and was diagnosed with the flu and was given a Tamiflu prescription. The patient's chest x-ray did appear to show that the patient had a left lower lobe pneumonia. She was treated for that, as well. Blood cultures and sputum cultures were also obtained. The patient was admitted for gangrene of the right great toe. She was started on Merrem for both her infection in her foot and also her pneumonia. She was started on bronchodilators as well as aggressive pulmonary toilet. She was gently hydrated for an acute kidney injury. The patient's 1st surgery was an I and D with deep debridement of tissue and bone on the right foot with amputation of the right hallux. Dr. Vaibhav Adams was brought on board. Culture from her foot grew Proteus and Enterobacter, and patient was started on cefepime. Patient underwent a 2nd I and D with debridement and removal of infected tissue and bone from the right foot, and then again an I and D with debridement and removal of infected tissue and bone on the right foot by Dr. Walter. Manager Hi was contacted because it was suggested from us and Dr. Walter attend rehab; however , she refused, so Dr. Adams set up home health as well as IV antibiotics with [facility]. Patient underwent her last surgery on 05/14/2016, on Tuesday. She was going to be discharged home on Tuesday; however, she stayed through Tuesday and at that time the patient decided to go to rehab for insurance purposes. She did not have SN availability, so the patient had to be approved for [facility]. They do have a bed for her today. She will follow up with Dr. Walter on Tuesday. She will follow up with Dr. Adams in 3 weeks and, after rehab, she will need a Pulmonology consult for her sleep apnea. Her last chest x-ray was stable. It did show increased central vascular markings and bibasilar infiltrates that have been stable and suggesting pulmonary edema with bilateral effusions that were stable. Patient was continued on Lasix. She will continue with IV antibiotics for a total of 6 weeks of treatment. After she is finished with her rehab, will continue to supply her antibiotics at home. She will see Dr. Adams in 3 weeks and, again, follow up with Dr. Walter on Tuesday. VITAL SIGNS: At time of discharge, temperature is 98.2, heart rate 104, respirations 18, blood pressure 112/51, and O2 is 97% on 2L nasal cannula. LABORATORIES: White count is 9, hemoglobin 8.3, hematocrit 28.1, platelet count 572,000. BUN 11, creatinine 0.7. DISCHARGE DIET: Diabetic. DISCHARGE MEDICATIONS: 1. Norvasc 5 mg p.o. daily. 2. Benadryl Allergy 25 mg p.o. daily. 3. Pepcid 20 mg p.o. daily. 4. Lasix 20 mg p.o. daily. 5. Glucophage 1000 mg p.o. b.i.d. 6. Novolin 70/30, 70 units p.o. b.i.d. 7. Lipitor 80 mg p.o. daily. 8. Onglyza 5 mg p.o. daily. 9. 10 mg p.o. daily. 10.Triamterene hydrochlorothiazide 37.5/25 mg 1 each p.o. daily. 11.Lantus 25 units subcutaneously nightly. 12.Lantus 40 units subcutaneously q.a.m. 13.MiraLAX 17 g p.o. daily. 14.Neurontin 100 mg p.o. b.i.d. 15.Aruna-Colace 1 each p.o. b.i.d. The patient is being discharged to [facility]. She is to follow up with Dr. Walter on Tuesday. She will follow up with Dr. Vaibhav Adams in 3 weeks. Again, the patient is being [facility]. After rehab, she will be picked up by [facility] and [facility] to continue with IV antibiotics. She is currently receiving meropenem as well as vancomycin. The patient can return to the ED for any worsening of symptoms. DISCHARGE TIME: Forty minutes. Dictated by KATHLEEN Tuttle for Saul Herndon MD MTDD
== END 2016-05-19 12:45 | DRG 239 ==
LOC: DIRADM 16:22 → 4N 17:07
PROVIDERS: ATTEND Internal Medicine
PROC: 0JBQ0ZZ Excision of Right Foot Subcutaneous Tissue and Fascia, Open Approach (ICD-10-PCS; 2016-05-07)
PROC: 0Y6P0Z0 Detachment at Right 1st Toe, Complete, Open Approach (ICD-10-PCS; principal; 2016-05-07 08:55)
PROC: 0JDQ0ZZ Extraction of Right Foot Subcutaneous Tissue and Fascia, Open Approach (ICD-10-PCS; 2016-05-11)
PROC: 0Y6M0Z9 Detachment at Right Foot, Partial 1st Ray, Open Approach (ICD-10-PCS; 2016-05-14 14:15)
DX: E11.52 Type 2 diabetes mellitus with diabetic peripheral angiopathy with gangrene (principal); J18.9 Pneumonia, unspecified organism; N17.9 Acute kidney failure, unspecified; I27.2 Other secondary pulmonary hypertension; I11.9 Hypertensive heart disease without heart failure; M86.9 Osteomyelitis, unspecified; E11.42 Type 2 diabetes mellitus with diabetic polyneuropathy; E11.65 Type 2 diabetes mellitus with hyperglycemia; E86.0 Dehydration; B37.49 Other urogenital candidiasis; I42.2 Other hypertrophic cardiomyopathy; E11.69 Type 2 diabetes mellitus with other specified complication; E87.70 Fluid overload, unspecified; E78.5 Hyperlipidemia, unspecified; M19.071 Primary osteoarthritis, right ankle and foot; K59.00 Constipation, unspecified; F41.1 Generalized anxiety disorder; F41.0 Panic disorder [episodic paroxysmal anxiety]; D64.9 Anemia, unspecified; G47.30 Sleep apnea, unspecified; Z79.899 Other long term (current) drug therapy; Z79.4 Long term (current) use of insulin; Z83.3 Family history of diabetes mellitus; Z80.8 Family history of malignant neoplasm of other organs or systems; Z82.49 Family history of ischemic heart disease and other diseases of the circulatory system; Z80.0 Family history of malignant neoplasm of digestive organs
CPT/HCPCS: 36569; 71010; 71020; 80048; 80053; 81001; 82805; 82948; 83036; 83735; 85025; 85610; 85651; 85730; 86140; 87040; 87070; 87075; 87077; 87088; 87186; 87205; 87804; 88304; 88305; 93005; 93010; 93306; 94640; 94660; 94760; 94761; 94799; C9113; J0692; J0744; J1170; J1815; J1940; J2060; J2185; J2250; J2270; J3010; J3370; J7030; J7040; J7050; J7120; 97116-GP; S0020; S0164

== ENCOUNTER 2016-10-05 13:22 | Inpatient (IN) ==
--- NOTE | 2016-10-05 14:07 | Diag Imaging Result Doc PS360 ---
EXAM: CHEST-PORTABLE HISTORY: cough TECHNIQUE: AP portable upright chest at 1400 COMMENT: Compared to 05/17/2016 there is less pleural fluid bilaterally and the pulmonary edema which was present previously has diminished canal only over the left hemidiaphragm. This may represent residual pneumonia or atelectasis. IMPRESSION: Left lower lobe opacity which has improved considerably since 05/17/2016. Electronically signed by Shaun Fields 10/05/2016 2:05 PM
[2016-10-05 14:34] LABS: URINE SOURCE CATH
[2016-10-05 14:36] LABS: BILIRUBIN URINE NEGATIVE (NEGATIVE); BLOOD URINE NEGATIVE (NEGATIVE); COLOR YELLOW; GLUCOSE URINE NEGATIVE (NEGATIVE); LEUKOCYTES URINE MODERATE (NEGATIVE); NITRITE URINE NEGATIVE (NEGATIVE); PROTEIN URINE 50 mg/dL (NEGATIVE); SP GRAVITY URINE 1.021; TURBIDITY URINE CLEAR (CLEAR); URINE MICRO REVIEW NEEDED? YES; UROBILINOGEN URINE NORMAL (NORMAL)
[2016-10-05 14:43] LABS: UR EPITHELIAL CELLS <10 /HPF (<10); URINE BACTERIA NEGATIVE /HPF; URINE CULTURE NEEDED? YES; URINE RBC <10 /HPF (<10); URINE WBC TNTC /HPF (<10)
[2016-10-05 14:58] LABS: AGAP 10; ALBUMIN 2.6 g/dL (3.5-5.0); ALKALINE PHOSPHATASE 232 U/L (32-104); BUN 26 mg/dL (8-22); CALCIUM 9.4 mg/dL (8.8-10.2); CHLORIDE 100 mmol/L (98-107); COSMO 294; GOT 21 U/L (10-30); GPT 18 U/L (10-36); POTASSIUM 4.6 mmol/L (3.5-5.1); SODIUM 142 mmol/L (136-145); TCO2 32 mmol/L (25-35); TOTAL BILIRUBIN 0.23 mg/dL (0.20-1.00); TOTAL PROTEIN 7.5 g/dL (6.3-8.3)
[2016-10-05 15:40] LABS: MANUAL DIFF NEEDED? NO
[2016-10-05 15:43] LABS: BASO% 0.4 % (0.0-0.8); EOS# 1.04 X1000 (0.0-0.7); EOS% 9.7 % (0.0-10.0); HEMATOCRIT 30.9 % (37.0-47.0); HEMOGLOBIN 9.3 g/dL (12.0-16.0); IMM GRAN# 0.02 X1000 (0.0-0.04); IMM GRAN% 0.2 % (0.0-0.5); MCH 26.4 PG (27-31); MCHC 30.1 g/dL (33-37); MCV 87.8 FL (81-99); MONO# 0.83 X1000 (0.11-0.59); MONO% 7.8 % (1.7-9.3); MPV 9.5 FL (7.4-10.4); NEUT% 52.9 % (42.2-75.2); PLT 422 X1000 (130-400); RBC 3.52 XMIL (4.2-5.4)
[2016-10-05] MEDS ORDERED: LEVAQUIN 750 MG/D5W 750 MG/150 ML IVPB IV ONE (15:57)
--- NOTE | 2016-10-05 18:11 | PROVIDER DOCUMENTATION ---
This chart was entered by Aparna Gordon Scribe, acting as scribe for Kalen Nguyen MD. HPI-Rash/Wound/ReCheck - General Chief Complaint: General Adult Stated Complaint: PRESSURE ULCER Time Seen by Provider: 10/05/16 13:31 Source: patient Allergies/Adverse Reactions: Allergies Allergy/AdvReac Type Severity Reaction Status Date / Time Penicillins Allergy RASH Verified 10/05/16 14:08 Home Medications: Home Medication List Medication Instructions Recorded Confirmed Last Taken Type Famotidine 20 mg PO BID 05/06/16 10/05/16 Unknown History ATORVAstatin [Lipitor] 20 mg PO QHS 10/05/16 10/05/16 Unknown History Albuterol Sulfate 1 each INH Q6H PRN 10/05/16 10/05/16 Unknown History Amino Acids/Protein Hydrolys 30 ml PO 4XDAY 10/05/16 10/05/16 Unknown History [Pro-Stat Awc Liquid] Arginine/Glutamine/Calcium Hmb 1 each PO BID 10/05/16 10/05/16 Unknown History [Jevon Packet] Aspirin [Aspirin] 81 mg PO DAILY 10/05/16 10/05/16 Unknown History Chlorhexidine Gluconate 15 ml MM BID 10/05/16 10/05/16 Unknown History Gabapentin [Neurontin] 100 mg PO QHS 10/05/16 10/05/16 Unknown History Insulin Glargine [Lantus] 40 unit SUBQ BID 10/05/16 10/05/16 Unknown History Ipratropium [place] [Ipratropium 1 each INH Q6H PRN 10/05/16 10/05/16 Unknown History [place]] Levothyroxine [Synthroid] 50 microgm PO DAILY 10/05/16 10/05/16 Unknown History Metoclopramide HCl [Reglan] 5 mg PO TID 10/05/16 10/05/16 Unknown History Metoprolol [Lopressor] 25 mg PO BID 10/05/16 10/05/16 Unknown History - History of Present Illness-Dermatology Nature of Presenting Problem: Pt is 51 yof that presents to er with a cc of Decubitus Ulcer. Family at bedside reports pt has been in and out of hospital for the past 5 months. Reports pt had cardiac arrest in April, and has reoccuring PNA States was discharged on September 30 from [facility] for acute intermediate frame tender care. Reports pt has had an decubitus ulcer on her right lower lumbar area and states that home health reports it needs debridement and that pt colostomy bag needs to be restiched. Pt has a wound vac on ulcer and the colostomy bag has been tapped to skin. Location: reports: other (right lower lumbar) Quality: reports: painful Severity: reports: moderate Timing: reports: still present Context/Associated Symptoms: reports: other (decubitus ulcer) Similar Symptoms Previously?: Yes Recently seen or treated by another doctor?: Yes Review of Systems - Adult - REVIEW OF SYSTEMS - ADULT Constitutional: denies: fever, fatique, night sweats Eyes: denies: discharge Ears, Nose, Mouth & Throat: reports: no symptoms reported Cardiovascular: denies: chest pain, irregular heart rate, orthopnea, syncope Respiratory: denies: cough, shortness of breath, wheezing Gastrointestinal: reports: no symptoms reported Genitourinary: reports: no symptoms reported Musculoskeletal: reports: no symptoms reported Integumentary: reports: see HPI, skin sores/ulcer. denies: mole changes, nail changes, skin thickening Neurological: denies: ataxia, numbness, paresthesia Psychiatric: reports: no symptoms reported Endocrine: reports: no symptoms reported Hematologic/Lymphatic: reports: no symptoms reported Allergic/Immunologic: reports: no symptoms reported All Other Systems: Reviewed and Negative Past History - Adult - PAST MEDICAL HISTORY-ADULT Review of Records: reports: Nursing Assessment Review, Medications Reviewed Major Childhood Illnesses: reports: denies history Cardiovascular: reports: HTN Respiratory: reports: other (Trachea) Endocrine/Immune: reports: Diabetes - PRIOR SURGERIES/PROCEDURES Surgical/Procedure History: reports: other (trach; rigth foot 5 toes amputated) - IMMUNIZATION STATUS Childhood Immunizations: See Nurse Assessment Flu Vaccine: See Nurse Assessment - SOCIAL HISTORY Smoking: denies Substance Use: none/never Physical Exam-General - PHYSICAL EXAM-ADULT Initial Vital Signs Reviewed: Yes - CONSTITUTIONAL General Appearance: appears well, alert, no apparent distress - EYES Eyes: PERRL/EOMI - HEAD, EARS, NOSE, MOUTH & THROAT HENMT: negative: moist mucous membranes (dry) - NECK Neck: other (trachea) - RESPIRATORY Respiratory: chest non-tender, lungs clear, normal breath sounds, no respiratory distress, no accessory muscle use - CARDIOVASCULAR Cardiovascular: regular rate, rhythm - GASTROINTESTINAL (ABDOMEN) Abdominal Exam: non tender, soft, no organomegaly, no pulsatile mass, other ( luq feeding tube; llq colostomy bag that has adhesive tape on it.) - MUSCULOSKELETAL Back Exam: other (right lower lumbar [id number] decubitus ulcer very minimal signs of possible infection) Extremity: other (right foot all 5 toes amputated; pt is bedbound) - SKIN Integumentary: normal color, normal turgor, warm/dry - PSYCHIATRIC Psych/Mental Status: other (non verbal but can smile and follow commands) Progress - PLAN OF CARE/RESULTS Progress/Plan/Lab Results: Vital Signs - 8 hr 10/05/16 13:50 10/05/16 15:00 10/05/16 15:52 Temperature 98.2 F 97.8 F Pulse Rate 78 87 Respiratory Rate 20 20 Blood Pressure 110/62 103/50 123/80 O2 Sat by Pulse Oximetry 100 90 L 10/05/16 16:00 10/05/16 17:00 Temperature Pulse Rate 87 86 Respiratory Rate 17 16 Blood Pressure 95/67 112/63 O2 Sat by Pulse Oximetry 92 L 100 Laboratory Results - last 24 hr 10/05/16 10/05/16 10/05/16 14:15 14:15 14:15 WBC Cancelled RBC Cancelled Hgb Cancelled Hct Cancelled MCV Cancelled MCH Cancelled MCHC Cancelled RDW Std Deviation Cancelled Plt Count Cancelled MPV Cancelled Immature Gran % (Auto) Cancelled Neut % (Auto) Cancelled Lymph % (Auto) Cancelled Hawkins % (Auto) Cancelled Eos % (Auto) Cancelled Baso % (Auto) Cancelled Immature Gran # (Auto) Cancelled Neut # (Auto) Cancelled Lymph # (Auto) Cancelled Hawkins # (Auto) Cancelled Eos # (Auto) Cancelled Baso # (Auto) Cancelled Corrected WBC (Man) Cancelled Sodium 142 Potassium 4.6 Chloride 100 Carbon Dioxide 32 Anion Gap 10 BUN 26 H Creatinine 0.7 Estimated GFR/1.73 m2 > 60 BUN/Creatinine Ratio 37 Glucose 200 H Calculated Osmolality 294 Calcium 9.4 Total Bilirubin 0.23 AST 21 ALT 18 Alkaline Phosphatase 232 H Total Protein 7.5 Albumin 2.6 L Globulin 4.9 Albumin/Globulin Ratio 0.5 Urine Source CATH Urine Color YELLOW Urine Turbidity CLEAR Urine pH 6.0 Ur Specific [place] 1.021 Urine Protein 50 A Ur Glucose (Stick) NEGATIVE Ur Ketones (Stick) NEGATIVE Urine Blood NEGATIVE Urine Nitrite NEGATIVE Urine Bilirubin NEGATIVE Urobilinogen Dipstick NORMAL Urine Leukocytes MODERATE A Urine WBC (Auto) TNTC A Urine RBC (Auto) <10 U Epithel Cells (Auto) <10 Urine Bacteria (Auto) NEGATIVE Urine Crystals Not Reportable Small Round Cells Not Reportable Urine Casts Not Reportable Urine Yeast-like Cells Not Reportable 10/05/16 15:36 WBC 10.68 RBC 3.52 L Hgb 9.3 L Hct 30.9 L MCV 87.8 MCH 26.4 L MCHC 30.1 L RDW Std Deviation 15.3 H Plt Count 422 H MPV 9.5 Immature Gran % (Auto) 0.2 Neut % (Auto) 52.9 Lymph % (Auto) 29.0 Hawkins % (Auto) 7.8 Eos % (Auto) 9.7 Baso % (Auto) 0.4 Immature Gran # (Auto) 0.02 Neut # (Auto) 5.65 Lymph # (Auto) 3.10 Hawkins # (Auto) 0.83 H Eos # (Auto) 1.04 H Baso # (Auto) 0.04 Corrected WBC (Man) Sodium Potassium Chloride Carbon Dioxide Anion Gap BUN Creatinine Estimated GFR/1.73 m2 BUN/Creatinine Ratio Glucose Calculated Osmolality Calcium Total Bilirubin AST ALT Alkaline Phosphatase Total Protein Albumin Globulin Albumin/Globulin Ratio Urine Source Urine Color Urine Turbidity Urine pH Ur Specific [place] Urine Protein Ur Glucose (Stick) Ur Ketones (Stick) Urine Blood Urine Nitrite Urine Bilirubin Urobilinogen Dipstick Urine Leukocytes Urine WBC (Auto) Urine RBC (Auto) U Epithel Cells (Auto) Urine Bacteria (Auto) Urine Crystals Small Round Cells Urine Casts Urine Yeast-like Cells Orders Category Date Time Status CHEST-PORTABLE [RAD] Stat Exams 10/05/16 13:49 Completed CBC WITH DIFF [HEME] Routine Lab 10/05/16 15:36 Completed COMPREHENSIVE METABOLIC PANEL [CHEM] Stat Lab 10/05/16 14:15 Completed URINALYSIS W/POSS RFLX CULT [URINALYSIS] Stat Lab 10/05/16 14:15 Completed URINE CULTURE [RM] Routine Lab 10/05/16 14:54 Received URINE MANUAL MICROSCOPIC [URINALYSIS] Stat Lab 10/05/16 14:15 Completed Levofloxacin 750 mg/D5w [Levaquin 750 mg/D5w] Med 10/05/16 15:57 Discontinued 750 mg in 150 ml IV NOW Result Diagrams: 10/05/16 15:36 10/05/16 14:15 - XRAY 1 XRAY: Bilateral XRAY Study: Chest Impression: Abnormal (LLL opacity with improvement since 05/17/16) - CONSULTS/PCP/HOSPITALIST Notification #1 *Consult/PCP/Hospitalist*: [place] Time Discussed: 17:55 (pt with mult problems, please admit to hospitalist, he will consult) #2 Consult: [place] Time Discussed: 18:05 Consult Disposition: Will see in ED, Admit Departure - Departure Date of Disposition Decision: 10/05/16 Time of Disposition Decision: 18:08 DIAGNOSIS: UTI (urinary tract infection) Qualifiers: Urinary tract infection type: site unspecified Hematuria presence: without hematuria Qualified Code(s): N39.0 - Urinary tract infection, site not specified Sacral decubitus ulcer Qualifiers: Pressure ulcer stage: unspecified pressure ulcer stage Qualified Code(s): L89.159 - Pressure ulcer of sacral region, unspecified stage Disposition: ADMITTED INPATIENT 09 Certified Medical Emergency: Emergent Condition: Good Referrals and Follow-Ups: Aaron Vargas MD [Primary Care Provider] - - Critical Care Note This patient required my direct & personal management of CC.: No This chart was documented by the indicated scribe, (Aparna Gordon Scribe) and accurately reflects the services I performed and decisions made by me, Kalen Nguyen MD, as attested by the provider's signature.
[2016-10-05] MEDS ORDERED: VANCOMYCIN IV PER PHARMACY MISC SCH (18:45)
[2016-10-05] MEDS ORDERED: MERREM 1 GM in NS 50 ML IV ONE (19:00)
--- NOTE | 2016-10-05 19:48 | HISTORY AND PHYSICAL ---
CHIEF COMPLAINT: Questionable infected decubitus ulcer and questionable infected colostomy site. HISTORY OF PRESENT ILLNESS: This is an unfortunate 55 y/o WF with a complex medical history. She has multiple comorbidities including uncontrolled DM, severe PVD s/p multiple lower extremity digit amputations, CAD s/p OK and others. Earlier this year she suffered cardiopulmonary arrest earlier which resulted in anoxic brain injury. She subsequently required trach, PEG and total care and was ultimately transferred to an LTAC facility in [place], [place] where she developed a complex sacral decubitus ulcer requiring surgical debridement and wound vac placement. She also required colostomy to divert stool as her decubitus ulcer was constantly covered in fecal matter because she is essentially bed bound. After all of this, her had her transferred to another LTAC in [place], [place] where she was recently discharged on 09/30/16. Apparently, she had also recently been treated for PNA with a question of MRSA. She has been at home for a total of 5 days with home health. She comes in today because her health nurse evaluated her and felt that the decubitus on her sacrum was showing signs of infection with more necrotic tissue. She also reported a stringy yellow substance coming from the colostomy site, which she felt was infection. Her denies that she has had any fevers or any other real acute complaints. In the ER, she had labs and diagnostics done. Labs showed she had some anemia, protein calorie malnutrition and a urinary tract infection, but otherwise nothing acute. Her vitals are stable. Chest x-ray shows questionable opacity in the left lower lobe, but this has improved since April. Dr. Mcmanus with surgery has been consulted for possible wound infections and we are now going to admit the patient for further treatment and evaluation. PAST MEDICAL HISTORY: 1. Chronic respiratory failure requiring tracheostomy secondary to anoxic brain injury. 2. Anoxic brain injury. 3. Severe sacral decubitus ulcer requiring wound VAC. 4. Chronic enteral nutrition and colostomy (colostomy was required to divert stool as she kept having chronic sacral decubitus ulcer which was infiltrated by stool). 5. Uncontrolled diabetes. 6. Severe peripheral vascular disease. 7. Coronary artery disease status post OK. 8. Hypothyroidism. 9. Hypertension. 10. Hyperlipidemia. PAST SURGICAL HISTORY: Tracheostomy, colostomy, PEG tube insertion. Lower extremity amputations, hysterectomy, tubal ligation. SOCIAL HISTORY: There is no tobacco, alcohol or drug use. Currently, she is living at home with her and requires total care. FAMILY HISTORY: Noncontributory. REVIEW OF SYSTEMS: Unable to obtain. HOME MEDICATIONS: Albuterol every 6 hours. Amino acid. Protein Pro-Stat 4 times a day. Jevon 1 b.i.d., aspirin 81 mg p.o. daily, Lipitor 20 mg at bedtime, chlorhexidine 15 mL , famotidine 20 mg b.i.d., Neurontin 100 mg p.o. at bedtime, Lantus 40 units subcutaneous b.i.d., ipratropium every 6 hours inhaled. Synthroid 50 mcg p.o. daily. Reglan 5 mg t.i.d. Lopressor 25 mg b.i.d. ALLERGIES: Penicillin. PHYSICAL EXAMINATION: VITAL SIGNS: Blood pressure is 129/81, heart rate is 89, respiratory rate is 16 , O2 saturation 99% on 5 L trach collar. Temperature is 97.8. GENERAL: This is a chronically ill-appearing and obese, female, lying in hospital bed in no acute distress. NEUROLOGIC: The patient is awake, but nonverbal. She will follow commands, but there is generalized weakness. No apparent focal deficits. HEENT: Head is atraumatic, normocephalic. Her pupils are equal, round, reactive to light. Oral mucosa is extremely dry. Trach site is clean, dry, and intact. Trachea is midline. There is no JVD. CHEST: Coarse bilaterally. CARDIOVASCULAR: Regular rate and rhythm. S1-S2 is noted. There is a 2/6 systolic ejection murmur. GI: Obese, nondistended and soft. Ostomy site has a dressing that is clean, dry, and intact. Liquid stool was noted in the colostomy bag. PEG tube site is clean, dry, and intact. EXTREMITIES: Thready pulses bilaterally with pale skin and no edema. The amputation sites are clean, dry, and intact. DIAGNOSTIC DATA: Chest x-ray shows improved left lower lobe opacity. WBC 10.6 , hemoglobin 9.3, hematocrit 30.9, platelet count 422. Sodium 142, potassium 4.6, chloride 100, CO2 of 32, anion gap 10, BUN 26, creatinine 0.7, glucose 200, calcium 9.4. Alkaline phosphatase 232, albumin 2.6. UA shows urinary tract infection. ASSESSMENT AND PLAN: 1. Questionable decubitus infection of the sacrum: We are going to consult Dr. Mcmanus in wound care for further advice. We have obtained blood cultures and we will start broad-spectrum antibiotics. We may need to have ID involved as well. 2. Questionable ostomy site infection: We are going to check a CT of the thorax , abdomen, have Dr. Mcmanus evaluate and start broad-spectrum antibiotics. 3. Chronic respiratory failure with questionable pneumonia: CT of the chest has been ordered and we are going to start broad-spectrum antibiotics. Continue breathing treatments and aggressive pulmonary toilet. 4. Severe diabetes mellitus: Check a hemoglobin A1c. Add pattern sugars, sliding scale insulin and continue her home medications. 5. Coronary artery disease: No evidence of ischemia at this time. Will continue her home medications. 6. Microcytic anemia: Will check iron studies and treat accordingly. 7. Urinary tract infection: Continue antibiotics, cultures are pending. 8. Severe protein calorie malnutrition: We will continue her tube feedings and consult nutrition. 9. Anoxic brain injury/total care patient: We will consult social work to ensure the patient has adequate resources after d/c. Deep vein thrombosis prophylaxis with Lovenox. Further recommendations to follow. Dictated by KATHLEEN Garcia for Saul Herndon MD cc: KATHLEEN Garcia MD I have seen and examined the patient and I agrees with the above evaluation and plan. Cellulitis around the ostomy Infected sacral ulcers. surgery consult and antibiotics. deisy GALLEGOS
--- NOTE | 2016-10-05 20:07 | CONSULTATION ---
DATE OF CONSULTATION: 10/05/2016 HISTORY OF PRESENT ILLNESS: This is a 51-year-old female with a very limited history. She is nonverbal with a tracheostomy. No family is here and we have limited records, but what I have been able to piece together is she had some catastrophic medical insult that resulted in complete quadriplegia. She has been in and out of rehabilitation facilities in [place], developed decubitus ulcers, tracheostomy, PEG tube. She has been managed by a surgeon in [place] apparently for a sacral decubitus wound for which she has a wound VAC and a diverting colostomy. She has been discharged now from rehabilitation and is now in [place] apparently. She was supposed to be seen in wound center for evaluation of her decubitus ulcer but home health was concerned about multiple issues and she was brought to the emergency department. In the emergency department she found to have a urinary tract infection and has been treated for this. MEDICAL HISTORY: Tracheostomy dependence, PEG tube dependence, quadriplegia, sacral decubitus, diabetes poorly controlled. Otherwise medical history is limited. SURGICAL HISTORY: She had a colostomy, what appears to be a loop colostomy in the left lower quadrant and presumably debridement of decubitus ulcer. She has also had transmetatarsal amputation on the right and a tracheostomy. SOCIAL HISTORY: Unavailable but apparently she is and has a that is just not here now. FAMILY HISTORY: Unobtainable. REVIEW OF SYSTEMS: 10 point review of systems limited but otherwise negative except for what is mentioned in her HPI. PHYSICAL EXAMINATION: Vital Signs: She is afebrile. No tachycardia here in the emergency department. Sats of 95. Pulse 90. General: She is nonresponsive, occasionally follows commands but appears awake. She has a tracheostomy in place. Cardiovascular: Not tachycardic. Pulmonary: She has tracheostomy without any increased work of breathing. She is comfortable on room air. Abdomen: Soft, nontender. There is a PEG tube in place. There is a catheter currently. She has a left lower quadrant colostomy that is slightly retracted but overall appears to be healing well with no mucocutaneous separation and is pink and viable with liquid stool in the bag. Skin: She has a large sacral decubitus wound that has some necrotic tissue in the bed but no cellulitis. There is exposed sacrum. Extremities: There is a transmetatarsal amputation on the right. Otherwise well perfused with some edema. LABS: Reviewed. No white count. She does have some leukocyte esterase on her urinalysis. Chest x-ray shows left lower lobe consolidation. Glucose is 200. A1c was elevated as well. ASSESSMENT AND PLAN: This is a 51-year-old female with multiple medical issues. History is limited as to exactly what is going on. She does have a sacral decubitus wound that is not grossly infected but does have some necrotic tissue that will ultimately need debriding down to the level of bone to facilitate wound healing. Her colostomy looks okay. I think she will have difficulty with pouching given the size of her abdominal wall and retraction but we will ask our wound ostomy nurse to see her regarding this matter. Otherwise she is on antibiotics for a urinary tract infection. She needs better control of her blood glucose. We will follow along. I will wait to post her for the operating room for debridement until I speak with her , so we will not plan to do this tomorrow but possibly . cc: Chris Mcmanus MD MTDD
[2016-10-05] MEDS ORDERED: VANCOMYCIN 2 GM in NS 500 ML IV ONE (21:00)
--- NOTE | 2016-10-05 21:08 | Diag Imaging Result Doc PS360 ---
EXAM: THORAX/ABDOMEN/PELVIS W/O CONT HISTORY: Pna eval, possible infected ostomy TECHNIQUE: CT of the chest without contrast, CT urogram With dose reduction (clarity.) COMMENT: There is a tracheostomy tube. There is a small pleural effusion on the right and a larger fluid collection on the left. There is no evidence of significant adenopathy. There is bilateral lower lobe atelectasis more so on the left than the right. There is a calcified granuloma in the left apex. CT urogram without contrast: there are granulomata present in the spleen. There is been cholecystectomy. There are some granulomata in the liver. There is a gastrostomy tube with its tip in the gastric body. There is no evidence of hydronephrosis or definite stones in the kidneys. There are vascular calcifications in the renal arteries and their branches. The abdominal aorta is calcified but not distended. There is no evidence of bowel dilatation. There is a descending colostomy in the left anterior pelvis. There is skin thickening and stranding in the fat surrounding the ostomy. The possibility of some cellulitis in this area cannot be excluded. There is no evidence of a discrete abscess. There are apparent injection granulomata present in the subcutaneous fat over the panniculus. There is a Harris catheter in the bladder. There is presacral edema in the perirectal fat. There are no acute bony abnormalities. IMPRESSION: 1. Bilateral pleural effusions and basilar atelectasis. 2. Possible cellulitis around the ostomy. Electronically signed by Shaun Fields 10/05/2016 9:06 PM
[2016-10-05] MEDS ORDERED: DUONEB (A & A) INH PRN (21:16)
[2016-10-05] MEDS ORDERED: ATROVENT NEB INH PRN (21:16)
[2016-10-05] MEDS ORDERED: ALBUTEROL NEB INH PRN (21:16)
[2016-10-05] MEDS ORDERED: PATIENT'S OWN MED PO SCH ×2 (21:16)
[2016-10-05] MEDS: DUONEB (A & A) INH SCH (21:30)
[2016-10-05] MEDS ORDERED: INSULIN PEN NEEDLES ONE (22:36)
[2016-10-05] MEDS: NEURONTIN PO SCH (22:50)
[2016-10-05] MEDS: PEPCID PO SCH (22:50)
[2016-10-05] MEDS: LOPRESSOR PO SCH (22:50)
[2016-10-05] MEDS: LIPITOR PO SCH (22:50)
[2016-10-05] MEDS: LANTUS SUBQ SCH (22:52)
[2016-10-05] MEDS: HUMALOG SUBQ SCH (23:17)
[2016-10-05] MEDS: PERIDEX SCH (23:18)
[2016-10-06] MEDS: DUONEB (A & A) INH SCH ×7 (00:04→23:00)
[2016-10-06] MEDS: MERREM 1 GM in NS 50 ML IV SCH ×3 (05:01→20:22)
[2016-10-06] MEDS: SYNTHROID PO SCH (05:59)
[2016-10-06] MEDS: HUMALOG SUBQ SCH ×4 (06:03→20:24)
[2016-10-06 06:56] LABS: HEMOGLOBIN 8.5 g/dL (12.0-16.0); MCH 26.5 PG (27-31); MCHC 29.3 g/dL (33-37); MCV 90.3 FL (81-99); MPV 9.7 FL (7.4-10.4); RBC 3.21 XMIL (4.2-5.4)
[2016-10-06 07:10] LABS: HEMOGLOBIN A1C 5.5 % (4.8-6.0)
[2016-10-06 07:17] LABS: AGAP 12; BUN 23 mg/dL (8-22); CALCIUM 8.6 mg/dL (8.8-10.2); CHLORIDE 102 mmol/L (98-107); COSMO 291; IRON SATURATION 12 %; SODIUM 143 mmol/L (136-145); TCO2 29 mmol/L (25-35); TIBC 188 ug/dL; TOTAL IRON 23 ug/dL (49-151); UNBOUND IRON 165 ug/dL (112-346)
[2016-10-06] MEDS: PEPCID PO SCH ×2 (10:23→20:21)
[2016-10-06] MEDS: LOPRESSOR PO SCH ×2 (10:23→20:21)
[2016-10-06] MEDS: ASPIRIN PO SCH (10:23)
[2016-10-06] MEDS: REGLAN PO SCH ×3 (10:23→17:02)
[2016-10-06] MEDS: LOVENOX SUBQ SCH (10:24)
[2016-10-06] MEDS: PERIDEX SCH ×2 (10:24→20:25)
[2016-10-06] MEDS: LANTUS SUBQ SCH ×2 (10:24→20:23)
--- NOTE | 2016-10-06 15:53 | PROGRESS NOTE ---
DATE: 10/06/2016 SUBJECTIVE: Today Ms. Blackwood was pretty much stable. The and another family member were in the room at the time of the encounter. The patient has already been evaluated by wound care, and the erythematous changes around the PEG tube have been evaluated and they do not think it is anything concerning. There is a picture of the wound on the sacral wound which looks necrotic, so there is a plan for surgery to debride the wound tomorrow. OBJECTIVE: Vital Signs: Ms. Blackwood's vitals: Blood pressure is 105/53, pulse of 83, respirations 18, temperature 98.3 degrees. General exam: Ms. Blackwood is a 51-year-old female. She is in bed. She is nonverbal due to anoxic brain injury. HEENT: Mucosa is pink and moist. Anicteric and acyanotic. Neck: Supple. There is a trach in place. Chest: Good air entry bilateral. A few bibasilar crepitations. Abdomen: Soft. There is a PEG tube in place and there is also an ostomy bag. Extremities: No pedal edema. There is a right transmetatarsal amputation. VIDEO EDITOR: Patient is awake, alert, but nonverbal. Seems to understand a few things. She was able to wave when I said goodbye. LABORATORY DATA: WBC is 11.56, hemoglobin is 8.5, platelet count of 400. Sodium is 143, potassium 4.4, chloride is 102, bicarbonate is 29. DIAGNOSTIC STUDIES: A CT scan of the chest/abdomen/pelvis which was done yesterday showed bilateral pleural effusion and some bibasilar atelectasis, possible cellulitis around the ostomy. ASSESSMENT: 1. Chronic respiratory failure requiring tracheostomy. 2. Anoxic brain injury secondary to previous cardiac arrest. 3. Bed bound. 4. Severe sacral decubitus ulcer. The patient is getting debridement tomorrow. 5. Uncontrolled diabetes. 6. Severe peripheral vascular disease. 7. Hypothyroidism. 8. Dyslipidemia. 9. Atelectasis with bilateral pleural effusions noted. 10. Cellulitis around the ostomy. Patient will continue on the current antibiotics. 11. Normocytic anemia with relative iron deficiency noted. PLAN: So in general I think Ms. Blackwood remains stable. She is currently on IV antibiotics including vancomycin and meropenem. We will be pending surgery, further recommendations as regards to the sacral decubitus ulcer management. cc: Saul Herndon MD
--- NOTE | 2016-10-06 17:22 | PROGRESS NOTE ---
DATE: 10/06/2016 SUBJECTIVE: No apparent events overnight. OBJECTIVE: No fevers. Heart rate is in the 80s. Blood pressure 105/53. She is receiving a breathing treatment via her trach collar right now. She got tube feeds going at 50 and appears in no acute distress. LABS: White count 11, hematocrit 29, creatinine 0.7, glucose 143. Her hemoglobin A1c is 5.5. Her blood, urine and sputum cultures are preliminarily negative. ASSESSMENT/PLAN: This is a 51-year-old female with multiple issues medically including a deep sacral decubitus wound. I examined the wound late yesterday evening. She does have some necrotic material in the bed of the wound that in a nonemergent fashion needs to be debrided to facilitate ongoing wound healing. I need to speak with her as the patient is nonverbal and I have been unable to catch him despite now 2 visits to see the patient. We will continue. She is being treated for a urinary tract infection. She seems to be tolerating tube feeds. Her ostomy is working well. We will ask her wound ostomy nurse to see her and make recommendations about a better fitting appliance She does have some retractions but it is healed and functioning, and not obstructed. I will continue follow along. If I am able to touch base with the and talk to him, we would plan for possible debridement on Tuesday. She apparently has a surgeon somewhere who knows her well and has been managing these wounds, and has given her a diverting colostomy, has debrided this wound, initiated wound VAC therapy. It may be in the patient's best interest to seek care with her surgeon. She is a complicated case and known to him but if it is not a possibility we would be happy to see her and defer other medical management to the Hospitalist Service. cc: Chris Mcmanus MD MTDD
[2016-10-06 17:57] LABS: INR 1.12; PROTIME 11.8 Seconds (9.2-11.7)
[2016-10-06] MEDS: LIPITOR PO SCH (20:21)
[2016-10-06] MEDS: NEURONTIN PO SCH (20:21)
[2016-10-06] MEDS: VANCOMYCIN 1.75 GM in NS 250 ML IV SCH (20:51)
[2016-10-07] MEDS: DUONEB (A & A) INH SCH ×6 (03:00→23:12)
[2016-10-07] MEDS: MERREM 1 GM in NS 50 ML IV SCH ×3 (05:47→19:59)
[2016-10-07] MEDS: SYNTHROID PO SCH (06:01)
[2016-10-07] MEDS: HUMALOG SUBQ SCH ×4 (06:20→21:00)
[2016-10-07 06:35] LABS: HEMATOCRIT 28.6 % (37.0-47.0); HEMOGLOBIN 8.4 g/dL (12.0-16.0); MCH 26.6 PG (27-31); MCHC 29.4 g/dL (33-37); MCV 90.5 FL (81-99); RBC 3.16 XMIL (4.2-5.4)
[2016-10-07 06:49] LABS: ALBUMIN 2.4 g/dL (3.5-5.0)
[2016-10-07 06:50] LABS: AGAP 9; BUN 24 mg/dL (8-22); CALCIUM 8.7 mg/dL (8.8-10.2); CHLORIDE 99 mmol/L (98-107); COSMO 287; POTASSIUM 4.5 mmol/L (3.5-5.1); SODIUM 139 mmol/L (136-145); TCO2 31 mmol/L (25-35)
[2016-10-07] MEDS: PERIDEX SCH ×2 (08:11→19:59)
[2016-10-07] MEDS: REGLAN PO SCH ×3 (08:12→16:39)
[2016-10-07] MEDS: LOPRESSOR PO SCH ×2 (08:12→20:00)
[2016-10-07] MEDS: PEPCID PO SCH ×2 (08:12→19:59)
[2016-10-07] MEDS: ASPIRIN PO SCH (08:12)
[2016-10-07] MEDS: LOVENOX SUBQ SCH (08:12)
[2016-10-07] MEDS: LANTUS SUBQ SCH ×2 (08:13→20:02)
--- NOTE | 2016-10-07 09:00 | PROGRESS NOTE ---
DATE: 10/07/2016 SUBJECTIVE: I had a long discussion with the patient's this morning and obtained a more detailed medical history. 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 Walter. She went to [facility] rehab and while at rehabilitation she underwent a cardiac arrest requiring defibrillation and was ultimately brought back but suffered a severe anoxic brain injury. She was in ICU for several months in [place] and had a tracheostomy and PEG tube placed. She was ultimately discharged from there to an LTAC in [place]. She developed worsening of her sacral wound at that time although this was noted going back to her original amputation site. Because of this, she required extensive debridement and diverting colostomy which was done in the hospital. After this, she was then discharged from LTAC in [place] where she was ultimately weened off the ventilator and last week was discharged home under the care of her who is very attentive and very involved in her care and quite capable. There are some concerns about some necrotic tissue in the wound prompting her appointment with me, but there are some other concerns requiring her admission. Otherwise, overnight, no events. She is tolerating her tube feeds well. PHYSICAL EXAMINATION: No fevers. Heart rate has been in the 90s. Blood pressure 115/44, oxygen saturation is 100% on trach collar. Colostomy bag in place. Abdomen is soft, nontender. She is, otherwise, in no acute distress with a normal rate and regular rhythm. LABORATORY DATA: White count 10, hematocrit is 28, creatinine 0.6, glucose 203 , Albumin is 2.4. ASSESSMENT AND PLAN: This is a 51-year-old female with an anoxic brain injury and a large sacral decubitus wound. She is tolerating her tube feeds and although levels were low, she is at least receiving adequate nutrition. There is some necrotic tissue in the bed that needs debridement to facilitate wound healing and will most likely plan to place a wound VAC after this. I talked to the about risks, benefits, and alternatives. I recommended excisional debridement in the operating room tomorrow. This will likely include debridement of some bone as this is visible in the bed of the wound. We discussed the prolonged nature of wound healing and he understands this. She is on antibiotics and will be managed for other issues by the hospitalist service. I appreciate their help. Kay, our wound nurse, has seen her and made recommendation for ostomy. It is a bit retracted and will most likely need a modified appliance to protect the skin around this. We will make her n.p.o. at midnight and plan for excisional debridement in the operating room tomorrow. cc: Chirs Mcmanus MD MTD
--- NOTE | 2016-10-07 12:58 | PROGRESS NOTE ---
DATE: 10/07/2016 SUBJECTIVE: Today Ms. Blackwood continues to be stable. According to the , she is doing pretty fine. Has been evaluated by Dr. Mcmanus and there is a plan to do her debridement for tomorrow. OBJECTIVE: Vital signs: Blood pressure is 194/50, pulse of 93, respirations 18, temperature is 98.7 degrees. General Examination: Ms. Blackwood is a 51-year-old female. She is in bed, not seemingly distressed. There is a trach collar in place. Chest: Air entry is bilaterally reduced. There is a few bibasilar crepitations. Cardiovascular: Regular rate and rhythm. Abdomen: Soft. There is a PEG tube in place and there is also an ostomy bag on the left lateral aspect of the abdomen. Extremities: No pedal edema. There is a right transmetatarsal amputation. SUPPLEMENTAL MANAGER: Patient is awake, alert, nonverbal, but she seems to understand some commands. She was able to move her legs, wiggle her left toes upon command and she was able to wave. LABORATORY DATA: WBC 10.5, hemoglobin is 8.4, platelet count is 368,000. Chemistries reviewed, completely unremarkable. Glucose is 203. ASSESSMENT: 1. Chronic respiratory failure, requiring tracheostomy. 2. Anoxic brain injury secondary to previous cardiac arrest. 3. Cellulitis around the ostomy. Patient is on antibiotics. 4. Severe sacral decubitus ulcer, pending debridement. 5. Hypothyroidism. 6. Diabetes mellitus with peripheral vascular disease complications, resulting into right metatarsal transmetatarsal amputation. In general, I think Ms. Blackwood is relatively stable. We are still pending her debridement and once that is done, then we can safely discharge her home. She has some yeast in her urine and because she has an indwelling Harris catheter, we are going to go ahead and treat this with fluconazole. cc: Saul Herndon MD
[2016-10-07] MEDS: LIPITOR PO SCH (19:59)
[2016-10-07] MEDS: NEURONTIN PO SCH (19:59)
[2016-10-07] MEDS: VANCOMYCIN 1.75 GM in NS 250 ML IV SCH (20:59)
[2016-10-08] MEDS: DUONEB (A & A) INH SCH ×6 (03:48→23:12)
[2016-10-08] MEDS: MERREM 1 GM in NS 50 ML IV SCH ×2 (04:44→13:05)
[2016-10-08] MEDS: HUMALOG SUBQ SCH ×4 (06:47→23:01)
[2016-10-08 07:34] LABS: HEMATOCRIT 29.2 % (37.0-47.0); HEMOGLOBIN 8.7 g/dL (12.0-16.0); MCHC 29.8 g/dL (33-37); MCV 87.4 FL (81-99); MPV 9.9 FL (7.4-10.4); RBC 3.34 XMIL (4.2-5.4)
[2016-10-08 07:48] LABS: AGAP 12; BUN 24 mg/dL (8-22); CALCIUM 8.5 mg/dL (8.8-10.2); CHLORIDE 99 mmol/L (98-107); COSMO 288; POTASSIUM 4.3 mmol/L (3.5-5.1); SODIUM 140 mmol/L (136-145); TCO2 29 mmol/L (25-35)
[2016-10-08] MEDS ORDERED: DIPRIVAN 1% ONE (10:38)
[2016-10-08] MEDS ORDERED: XYLOCAINE-MPF 2% ONE (10:38)
[2016-10-08] MEDS ORDERED: QUELICIN (DOSE) ONE (10:38)
[2016-10-08] MEDS ORDERED: XYLOCAINE 2% JELLY ONE (10:43)
[2016-10-08] MEDS ORDERED: NEOSPORIN OINTMENT PACKET ONE (11:23)
[2016-10-08] MEDS: LANTUS SUBQ SCH ×2 (11:47→22:55)
[2016-10-08] MEDS: DIFLUCAN PO SCH (11:48)
[2016-10-08] MEDS: LOPRESSOR PO SCH ×2 (11:48→22:51)
[2016-10-08] MEDS: ASPIRIN PO SCH (11:48)
[2016-10-08] MEDS: PEPCID PO SCH ×2 (11:49→22:51)
[2016-10-08] MEDS: LOVENOX SUBQ SCH (11:49)
[2016-10-08] MEDS: SYNTHROID PO SCH (11:50)
[2016-10-08] MEDS: PERIDEX SCH ×2 (11:50→23:08)
[2016-10-08] MEDS: REGLAN PO SCH ×3 (11:50→23:24)
--- NOTE | 2016-10-08 16:51 | PROGRESS NOTE ---
DATE: 10/08/2016 SUBJECTIVE: Today, Ms. Blackwood continues to be stable. The was at the bedside at the time of the interview. She just had come from debridement of her sacral wound. OBJECTIVE: Vital Signs: Blood pressure is 129/77, pulse of 93, respirations 18, temperature 98.2 degrees. General: Mr. Blackwood is a 51-year-old female. She is in bed, not seemingly distressed. HEENT: Mucosa is pink and moist. Anicteric. Acyanotic. Neck: Supple. Chest: Good air entry bilaterally. A few bibasilar crepitations. Cardiovascular: Regular rate and rhythm. Abdomen: Soft. There is a PEG tube in place, and there is a colostomy bag on the left lateral aspect of the abdomen. Extremities: No pedal edema. There is a right transmetatarsal amputation. Central Nervous System: Patient is awake and alert. Nonverbal. LABORATORY DATA: WBC is 9.83, hemoglobin is 8.7, platelet count of 271. Chemistry is reviewed, unremarkable. ASSESSMENT: 1. Severe sacral decubitus ulcer. The patient is status post I D. 2. Cellulitis around the ostomy bag, improved. 3. Anoxic brain injury secondary to previous cardiac arrest. 4. Chronic respiratory failure requiring tracheostomy. 5. Hypothyroidism. 6. Diabetes mellitus, with peripheral vascular disease. 7. Candiduria. We will continue with the fluconazole. PLAN: Ms. Blackwood had just finished I D of the sacral wound. We will continue with wound care and follow up with further recommendations from General Surgery. We are pending also the cultures from the wound to make any further changes. cc: Saul Herndon MD
--- NOTE | 2016-10-08 18:31 | OPERATIVE NOTE ---
PROCEDURE DATE: 10/08/2016 PREOPERATIVE DIAGNOSIS: Nonhealing sacral decubitus ulcer. POSTOPERATIVE DIAGNOSIS: Nonhealing sacral decubitus ulcer. PROCEDURES PERFORMED: Excisional debridement of an 11 x 9 x 4 cm deep sacral decubitus ulcer down to and including bone. COMPLICATIONS: None. ESTIMATED BLOOD LOSS: 10 mL. SPECIMENS: Necrotic tissue from wound bed. INDICATION: A 51-year-old female with a complicated medical history, but in short anoxic brain injury resulting in a bedridden state who developed a decubitus ulcer at an outside facility over the last couple of months being managed with fecal diversion and wound VAC therapy. She has redeveloped some necrotic tissue in the bed requiring debridement. OPERATIVE FINDINGS: There was an 11 x 9 x 4 cm deep sacral decubitus wound with some undermining left lateral that extended down to the level of the sacrum with some patchy areas of necrotic material here. No purulent cellulitis. No undrained collections of pus noted. OPERATIVE NOTE: Risks, benefits, alternatives, discussed with the patient's who consented to the procedure. She was seen preoperatively and surgery to be performed was confirmed. She was taken to the operating room, placed in supine position. Tracheal anesthesia was administered via her tracheostomy, and she was then placed in right lateral decubitus position on a pitt bag. All bony prominences were padded. She was secured to the bed well. Her sacrum was prepped with Betadine and draped in usual fashion. Using combination of a scalpel and scissors, after a time- out was performed, we excised all the necrotic tissue back to healthy bleeding tissue. In the bed of the wound, there was some sacrum that was starting to granulate, but it had some fibrinous tissue overlying. As such, using a curette and scissors, we debrided this back to healthy bleeding bone to facilitate healing. Overall the wound was healthy. We placed the saline Kerlix and ABD pad for dressing at the conclusion of the case. She tolerated well and was transferred to recovery in good condition. I spoke with the at the conclusion of the case. cc: Chris Mcmanus MD
[2016-10-08] MEDS: NEURONTIN PO SCH (22:51)
[2016-10-08] MEDS: LIPITOR PO SCH (22:51)
[2016-10-09] MEDS: MERREM 1 GM in NS 50 ML IV SCH ×2 (01:28→09:09)
[2016-10-09] MEDS: DUONEB (A & A) INH SCH ×6 (03:37→23:07)
[2016-10-09 05:50] LABS: MANUAL DIFF NEEDED? NO
[2016-10-09 06:21] LABS: AGAP 11; BUN 23 mg/dL (8-22); CALCIUM 8.7 mg/dL (8.8-10.2); CHLORIDE 99 mmol/L (98-107); COSMO 289; POTASSIUM 4.7 mmol/L (3.5-5.1); SODIUM 139 mmol/L (136-145); TCO2 29 mmol/L (25-35)
[2016-10-09 06:27] LABS: BASO% 0.4 % (0.0-0.8); EOS# 0.58 X1000 (0.0-0.7); EOS% 6.9 % (0.0-10.0); HEMATOCRIT 30.4 % (37.0-47.0); HEMOGLOBIN 8.9 g/dL (12.0-16.0); IMM GRAN# 0.02 X1000 (0.0-0.04); IMM GRAN% 0.2 % (0.0-0.5); LYMPH# 2.43 X1000 (1.2-3.4); LYMPH% 28.7 % (20.5-51.1); MCHC 29.3 g/dL (33-37); MCV 88.9 FL (81-99); MONO# 0.79 X1000 (0.11-0.59); MONO% 9.3 % (1.7-9.3); MPV 10.8 FL (7.4-10.4); NEUT% 54.5 % (42.2-75.2); PLT 105 X1000 (130-400); RBC 3.42 XMIL (4.2-5.4)
[2016-10-09] MEDS: HUMALOG SUBQ SCH ×4 (06:34→23:41)
[2016-10-09] MEDS: SYNTHROID PO SCH (06:35)
[2016-10-09 08:44] LABS: INR 1.04
[2016-10-09] MEDS: DIFLUCAN PO SCH (09:08)
[2016-10-09] MEDS: ASPIRIN PO SCH (09:08)
[2016-10-09] MEDS: REGLAN PO SCH ×3 (09:09→16:31)
[2016-10-09] MEDS: LANTUS SUBQ SCH ×2 (09:09→23:41)
[2016-10-09] MEDS: PEPCID PO SCH ×2 (09:09→23:43)
[2016-10-09] MEDS: LOPRESSOR PO SCH ×2 (09:09→23:43)
[2016-10-09] MEDS: PERIDEX SCH ×2 (09:10→23:40)
[2016-10-09] MEDS ORDERED: NS 250 ML ONE (11:17)
--- NOTE | 2016-10-09 13:17 | PROGRESS NOTE ---
DATE: 10/09/2016 SUBJECTIVE: Today Ms. Blackwood continues to be stable. Per the nursing staff there has not been any acute changes overnight. The was not at the bedside at the time of the interview. OBJECTIVE: Vital signs: Blood pressure is 103/63, pulse is 83, respirations 12, temperature 99.1 degrees, patient is saturating 99% on tracheostomy collar with 4 L of oxygen. General: Ms. Blackwood is a 51-year-old female. She is in bed, not seemingly distressed. HEENT: Mucosa is pink and moist. Anicteric. Acyanotic. Neck: Supple. There is a tracheostomy in place. Chest: Air entry is bilaterally reduced. Cardiovascular: Regular rate and rhythm. Abdomen: Soft, nontender. There is a PEG tube in place. There is also an ostomy bag on the left lateral aspect of the abdominal wall. Extremities: No pedal edema. There is a right transmetatarsal amputation. AIR GUN OPERATOR: Patient is awake, continues to be nonverbal. LABORATORY DATA: WBC is 8.46, hemoglobin is 8.9, platelet count of 105,000, this is a drop from 371,000. Chemistries reviewed completely unremarkable. Glucose is 239. Review of operative notes operative finding there was an 11 x 9 x 4 deep sacral decubitus wound with some undermining left lateral that extend down to the level of the sacrum with some patchy areas of necrotic material and no purulent cellulitis, no undrained collection of pus was noted. ASSESSMENT: 1. Severe sacral decubitus ulcer status post incision and drainage. 2. Cellulitis around the ostomy bag has resolved. 3. Anoxic brain injury secondary to previous cardiac arrest. 4. Chronic respiratory failure. Patient is currently on tracheostomy collar. 5. Hypothyroidism stable. 6. Diabetes mellitus. 7. Candiduria. 8. Thrombocytopenia. So in general I think Ms Blackwood is doing a lot better. Vitals are stable. There has been a drop to 105,000, not quite sure what is the result. We would discontinue the Lovenox and use pneumatic compressions for DVT prophylaxis and repeat the platelet count for tomorrow. So in general I think Ms. Blackwood is relatively stable. The cellulitis around the ostomy is completely resolved. There was a debridement of the wound yesterday and it does not look infected so will go ahead and discontinue the antibiotics, continue with the fluconazole for candiduria. I think at this point we just awaiting surgery and wound care and wound nurse evaluation to have the patient discharged. cc: Saul Herndon MD
[2016-10-09] MEDS ORDERED: VANCOMYCIN 1,750 MG in NS 250 ML IV SCH (14:00)
[2016-10-09] MEDS: LIPITOR PO SCH (23:43)
[2016-10-09] MEDS: NEURONTIN PO SCH (23:43)
[2016-10-10] MEDS: SYNTHROID PO SCH (07:00)
[2016-10-10] MEDS: HUMALOG SUBQ SCH ×4 (07:01→23:22)
[2016-10-10 07:18] LABS: AGAP 9; BUN 22 mg/dL (8-22); CALCIUM 8.6 mg/dL (8.8-10.2); CHLORIDE 100 mmol/L (98-107); COSMO 285; POTASSIUM 4.6 mmol/L (3.5-5.1); SODIUM 139 mmol/L (136-145); TCO2 30 mmol/L (25-35)
[2016-10-10] MEDS: DUONEB (A & A) INH SCH ×5 (07:26→23:27)
[2016-10-10 08:11] LABS: MANUAL DIFF NEEDED? NO
[2016-10-10 08:42] LABS: BASO% 0.2 % (0.0-0.8); EOS# 1.12 X1000 (0.0-0.7); EOS% 10.9 % (0.0-10.0); HEMATOCRIT 27.4 % (37.0-47.0); HEMOGLOBIN 8.2 g/dL (12.0-16.0); IMM GRAN# 0.02 X1000 (0.0-0.04); IMM GRAN% 0.2 % (0.0-0.5); LYMPH# 3.56 X1000 (1.2-3.4); LYMPH% 34.6 % (20.5-51.1); MCH 26.3 PG (27-31); MCHC 29.9 g/dL (33-37); MCV 87.8 FL (81-99); MONO# 0.95 X1000 (0.11-0.59); MONO% 9.2 % (1.7-9.3); MPV 10.4 FL (7.4-10.4); NEUT% 44.9 % (42.2-75.2); PLT 366 X1000 (130-400); RBC 3.12 XMIL (4.2-5.4)
[2016-10-10] MEDS: PERIDEX SCH ×2 (09:52→23:21)
[2016-10-10] MEDS: ASPIRIN PO SCH (09:52)
[2016-10-10] MEDS: PEPCID PO SCH ×2 (09:52→23:23)
[2016-10-10] MEDS: REGLAN PO SCH ×3 (09:52→17:28)
[2016-10-10] MEDS: DIFLUCAN PO SCH (09:52)
[2016-10-10] MEDS: LANTUS SUBQ SCH ×2 (09:53→23:22)
[2016-10-10] MEDS: LOPRESSOR PO SCH ×2 (09:53→23:23)
[2016-10-10] MEDS ORDERED: BLISTEX MEDICATED BERRY LIP BALM TOP ONE (13:36)
--- NOTE | 2016-10-10 15:16 | PROGRESS NOTE ---
DATE: 10/10/2016 SUBJECTIVE: Today Ms. Blackwood continues to be stable. No acute changes overnight. At the time of the encounter the nurses were changing the dressings, I was able to look at the wound. OBJECTIVE: Vital signs: Blood pressure 98/49, pulse of 88, respirations 15, temperature is 98.0 degrees, patient is saturating 98% on tracheostomy collar. HEENT: Mucosa is pink and moist. Anicteric. Acyanotic. Neck: Supple. There is a tracheostomy tube in place. Cardiovascular: Regular rate and rhythm. Abdomen: Soft, nontender. There is an ostomy bag on the left, the PEG tube in place as well. Extremities: No pedal edema. There is a right transmetatarsal amputation. CARD SELLER: Patient is awake, alert but nonverbal. Wound: Patient has a fairly large sacral wound on the left sacral area which is fairly pink base but there is some few isolated necrotic tissue. The bone is obviously exposed but the wound looks healthy. ASSESSMENT: 1. Severe sacral decubitus ulcer with bone exposure. Patient is status post incision and drainage. The wound looks pretty clean. 2. Cellulitis around the ostomy bag resolved. 3. Anoxic brain injury secondary to previous cardiac arrest. 4. Chronic respiratory failure on tracheostomy collar. 5. Hypothyroidism stable. 6. Diabetes mellitus. 7. Candiduria. Patient is on fluconazole. 8. Thrombocytopenia which only happened yesterday but this is improved, not quite sure if that was a lab error. So in general I think Ms. Blackwood is stable. Will be pending surgery evaluation today. She is currently not on any antibiotics since we do not think she needs it at this point, she will continue with just some wound care and hopefully will be able to discharge her tomorrow pending surgery final recommendations. cc: Saul Herndon MD
[2016-10-10] MEDS: NEURONTIN PO SCH (23:23)
[2016-10-10] MEDS: LIPITOR PO SCH (23:23)
[2016-10-10] MEDS ORDERED: INSULIN PEN NEEDLES ONE (23:35)
[2016-10-11] MEDS: DUONEB (A & A) INH SCH ×4 (03:45→15:30)
[2016-10-11] MEDS: SYNTHROID PO SCH (06:44)
[2016-10-11] MEDS: HUMALOG SUBQ SCH ×2 (06:45→12:03)
[2016-10-11] MEDS: ASPIRIN PO SCH (08:44)
[2016-10-11] MEDS: LOPRESSOR PO SCH (08:45)
[2016-10-11] MEDS: REGLAN PO SCH ×2 (08:45→13:23)
[2016-10-11] MEDS: PEPCID PO SCH (08:45)
[2016-10-11] MEDS: DIFLUCAN PO SCH (08:46)
[2016-10-11] MEDS: LANTUS SUBQ SCH (08:48)
[2016-10-11] MEDS: PERIDEX SCH (09:51)
[2016-10-11 11:38] VITALS: BP 104/52
--- NOTE | 2016-10-11 22:33 | PROGRESS NOTE ---
DATE: 10/11/2016 SUBJECTIVE: No acute events overnight. She seems to be in no distress in her room. is not here with her today. OBJECTIVE: No fevers overnight. No tachycardia. Blood pressure 105/46, O2 saturation 100% on tracheostomy collar. No new labs other than a glucose 165 this morning but white count was normal yesterday at 10. ASSESSMENT AND PLAN: This 51-year-old female with multiple medical issues that have resulted in a large sacral decubitus wound. This has been debrided, it cleaned up nicely. Will reinitiate wound VAC therapy. I talked to Kay Reyes. She will resume her home health wound VAC change and I can follow her at [facility] in 2 weeks. She has also gotten a concave ostomy appliance that helped with her pouching here as well. Otherwise will continue enteral nutrition through her PEG tube to promote wound healing and will most likely be able manage her wound care as an outpatient going forward with anticipated prolonged wound VAC therapy. cc: Chris Mcmanus MD
--- NOTE | 2016-10-12 15:37 | DISCHARGE SUMMARY ---
ADMISSION DATE: 10/05/2016 DISCHARGE DATE: 10/11/2016 CONSULTATIONS: Dr. Joseph Mcmanus with General Surgery. PERTINENT PROCEDURES: Chest, abdomen and pelvis CT showed bilateral pleural effusion and bibasilar atelectasis. Possible cellulitis around the ostomy. DISCHARGE DIAGNOSES: 1. Severe sacral decubitus ulcer with bone exposure, status post incision and drainage with wound VAC. The patient is being discharged back home. Follow up with Dr. Joseph Mcmanus. 2. Cellulitis around the ostomy bag, resolved. 3. Anoxic brain injury secondary to previous cardiac arrest. 4. Chronic respiratory failure. Follow trach collar. The patient currently has DME and oxygen through [facility], as well as home health services through [facility]. 5. Hyperthyroidism, stable. 6. Diabetes mellitus, stable. 7. Candiduria, resolved. HOSPITAL COURSE: Ms. Blackwood is a 51-year-old female, who carries a past medical history of diabetes mellitus, PVD status post multiple lower extremity due to amputations, CAD status post [place] earlier this year when she suffered cardiopulmonary arrest they resulted in anoxic brain injury. She subsequently required trach and PEG and total care. She was ultimately transferred to an LTAC facility in [place] where she developed a complex sacral decubitus ulcer requiring surgical debridement and wound VAC placement. She also required a colostomy to divert stool as her decubitus ulcer was constantly covered in fecal matter because she is essentially bed bound. After this, her had her transferred to another LTAC in [place] where she was recently discharged on 09/30/2016. Apparently she was also treated for pneumonia, as well as a question of MRSA. She had been home for a total of 5 days with home health. She came to the ED because home health nurse evaluated her and felt that her decubitus on her sacrum was showing signs of infection with more necrotic tissue and reported a stringy yellow substance coming from her colostomy site which she felt was infection. Laboratory data in the ED showed anemia, protein calorie malnutrition as well as urinary tract infection, but otherwise nothing acute. Dr. Joseph Mcmanus was consulted. Patient was started on broad-spectrum antibiotics. She was continued on her home tube feedings. Guidance Adviser was also consulted to make sure that the patient had adequate resources at discharge. The patient did undergo excisional debridement of her non healing sacral decubitus ulcer. They did place a wound VAC. Patient's cellulitis did resolve around her ostomy site. Her urine culture grew out yeast. She was treated with full treatment with Diflucan. Ms. Blackwood has been stable throughout her hospital stay. She was taken off her IV antibiotics and will just continue with wound care as per General Surgery's recommendations. Thus, she is being discharged home today and will follow up with Dr. Joseph Mcmanus. VITAL SIGNS: At the time of her discharge, temperature is 97.9 degrees, heart rate 80, respirations 16, blood pressure 104/52, O2 is 100% on room air. DISCHARGE DIET: Nothing by mouth with PEG tube feedings. Glucerna 1.5 at 50 mL/hour with 45 mL/hour flush. DISCHARGE MEDICATIONS: As per Dr. Herndon and include: 1. Albuterol sulfate 2.5 g inhaled q. 6 hours. 2. Pro-Stat AWC liquid 30 mL four times a day. 3. Jevon 1 each p.o. b.i.d. 4. Aspirin 81 mg p.o. daily. 5. Lipitor 20 mg p.o. at bedtime. 6. Precedex 15 mL b.i.d. 7. Pepcid 20 mg p.o. b.i.d. 8. Neurontin 100 mg p.o. at bedtime. 9. Lantus 40 units subcutaneously b.i.d. 10. Ipratropium 0.2 mg/mL 1 each inhaled q. 6 hours. 11. Synthroid 50 mcg p.o. daily. 12. Reglan 5 mg p.o. t.i.d. 13. Lopressor 25 mg p.o. b.i.d. FOLLOW UP: Patient is being discharged home with Home Health Services. She can follow up with her primary care physician, Dr. Aaron Vargas, as well as Dr. Joseph Mcmanus as indicated. She is going home with her wound VAC. Her Home Health Services is with [facility], and her oxygen is provided through [facility]. She has DME with trach collar and colostomy. The patient can return to the ED for any worsening of symptoms. TIME SPENT ON DISCHARGE: 30 minutes. Dictated by KATHLEEN Tuttle for Saul Herndon MD cc: Saul Herndon MD
== END 2016-10-11 16:53 | disposition home health service (06) ==
LOC: ED 13:22 → 3N 20:13
PROVIDERS: ATTEND Internal Medicine

== ENCOUNTER 2016-12-09 10:53 | Inpatient (IN) ==
[2016-12-09 11:32] LABS: MANUAL DIFF NEEDED? NO
--- NOTE | 2016-12-09 11:51 | EKG Report ---
Test Performed on : 12/09/2016 11:32:26 AM Test Reason : CHEST PAIN Blood Pressure : / mmHG Vent. Rate : 101 BPM Atrial Rate : 101 BPM P-R Int : 142 ms QRS Dur : 088 ms QT Int : 364 ms P-R-T Axes : 040 015 172 degrees QTc Int : 471 ms Sinus tachycardia. Nonspecific ST and T wave abnormality Abnormal ECG When compared with ECG of 15-MAY-2016 00:59, No significant change was found Unconfirmed Result
--- NOTE | 2016-12-09 12:00 | Diag Imaging Result Doc PS360 ---
EXAM: CHEST-PORTABLE HISTORY: dyspnea/ams TECHNIQUE: AP COMPARISON: 10/05/2016 FINDINGS: There is a small right-sided pleural effusion and a moderate sized left-sided pleural effusion. There is atelectasis versus infiltrate in the lower lungs. The heart is not enlarged. The vessels are not distended. IMPRESSION: Pleural effusions with basilar atelectasis. Electronically signed by Ori Mckinney 12/09/2016 11:58 AM
[2016-12-09] MEDS ORDERED: LEVAQUIN 750 MG in NS 150 ML IV ONE (12:03)
[2016-12-09] MEDS ORDERED: XOPENEX NEB INH ONE (12:04)
[2016-12-09 12:08] LABS: BASO% 0.3 % (0.0-0.8); EOS# 0.45 X1000 (0.0-0.7); EOS% 3.4 % (0.0-10.0); HEMATOCRIT 31.2 % (37.0-47.0); HEMOGLOBIN 8.7 g/dL (12.0-16.0); IMM GRAN# 0.07 X1000 (0.0-0.04); IMM GRAN% 0.5 % (0.0-0.5); LYMPH% 18.4 % (20.5-51.1); MCH 24.9 PG (27-31); MCHC 27.9 g/dL (33-37); MCV 89.4 FL (81-99); MONO# 0.96 X1000 (0.11-0.59); MONO% 7.4 % (1.7-9.3); MPV 9.9 FL (7.4-10.4); PLT 517 X1000 (130-400); RBC 3.49 XMIL (4.2-5.4)
[2016-12-09 12:09] LABS: AGAP 9; ALBUMIN 2.3 g/dL (3.5-5.0); ALKALINE PHOSPHATASE 261 U/L (32-104); BUN 49 mg/dL (8-22); CALCIUM 8.7 mg/dL (8.8-10.2); CHLORIDE 98 mmol/L (98-107); CK PROFILE 32 U/L (24-173); COSMO 291; GOT 20 U/L (10-30); GPT 22 U/L (10-36); MAGNESIUM 2.1 mg/dL (1.5-2.7); POTASSIUM 4.6 mmol/L (3.5-5.1); SODIUM 137 mmol/L (136-145); TCO2 30 mmol/L (25-35)
[2016-12-09 13:08] LABS: BILIRUBIN URINE NEGATIVE (NEGATIVE); BLOOD URINE NEGATIVE (NEGATIVE); CLARITY CLEAR (CLEAR); COLOR YELLOW; GLUCOSE URINE NEGATIVE (NEGATIVE); LEUKOCYTES URINE 2+ (NEGATIVE); NITRITE URINE POSITIVE (NEGATIVE); PROTEIN URINE NEGATIVE (NEGATIVE); SP GRAVITY URINE 1.015; UROBILINOGEN URINE NORMAL
[2016-12-09 13:11] LABS: URINE CAST NONE SEEN /LPF; URINE CRYSTAL NONE SEEN /HPF; URINE CULTURE PL NEEDED? YES; URINE EPITHELIAL CELLS >10 /HPF (<10); URINE RBC <10 /HPF (<10); URINE SOURCE CLEAN CATCH
[2016-12-09 13:21] LABS: BE 9.7 mmoll (-3.0-3.0); BLOOD TYPE ARTERIAL; METHB 1.1 % (0.0-1.5); O2(CT) 11.3 mL/dL (15.0-23.0); PO2(98.6) 98 mmHg (60-100); SAMPLE BLOOD; SAO2 98.5 % (95.0-100.0); THB 8.4 g/dL (11.5-17.4); pH(98.6) 7.43 (7.35-7.45)
[2016-12-09 13:24] LABS: MODALITY CANNULA; PCO2(98.6) 53 mmHg (35-45)
[2016-12-09 13:25] LABS: DRAW SITE R BRACHIAL
[2016-12-09] MEDS ORDERED: LASIX IV ONE (13:46)
[2016-12-09] MEDS ORDERED: XOPENEX NEB ONE (14:58)
--- NOTE | 2016-12-09 15:18 | ED EKG INTERP ---
This chart was entered by Kathy Pompa Scribe, acting as scribe for Bharat Maddox MD. EKG Interpretation - EKG Time of EKG reading by physician:: 11:32 EKG Read and Signed by:: Bharat Maddox EKG Interpretation (*Must complete 3 of following elements*): Abnormal Rate: 101 Rhythm: Sinus tachycardia [place]: normal Comments: Nonspecific ST & T abnormality Attestation - Physician/ JACKIE Attestation Patient care was provided by Advanced Practice Provider:: No The physician spent face to face time with patient:: Yes Advanced Practice Provider documentation review:: Supervising physician onsite and consulted in the evaluation and care of this patient. The physician did have a face to face encounter with the patient. This chart was documented by the indicated scribe, (Kathy Pompa Scribe) and accurately reflects the services I performed and decisions made by me, Bharat Maddox MD, as attested by the provider's signature.
--- NOTE | 2016-12-09 15:20 | PROVIDER DOCUMENTATION ---
This chart was entered by Kathy Pompa Scribe, acting as scribe for Bharat Maddox MD. HPI-Respiratory General - General Chief Complaint: Shortness of Breath Stated Complaint: short of breath Time Seen by Provider: 12/09/16 11:26 Source: other (professional caregiver) Allergies/Adverse Reactions: Patient Allergies Allergy/AdvReac Type Severity Reaction Status Date / Time Penicillins Allergy RASH Verified 12/09/16 10:59 Home Medications: Home Medication List Medication Instructions Recorded Confirmed Last Taken Type Famotidine 20 mg PO BID 05/06/16 11/09/16 11/09/16 History ATORVAstatin [Lipitor] 80 mg PO QHS 10/05/16 11/09/16 11/09/16 History Albuterol Sulfate 1 each INH Q6H PRN 10/05/16 11/09/16 11/09/16 History Aspirin 81 mg PO DAILY 10/05/16 11/09/16 11/09/16 History Gabapentin [Neurontin] 100 mg PO QHS 10/05/16 11/09/16 11/09/16 History Insulin Glargine [Lantus] 45 unit SUBQ BID 10/05/16 11/09/16 11/09/16 History Ipratropium [place] 1 each INH Q6H PRN 10/05/16 11/09/16 11/09/16 History Levothyroxine [Synthroid] 75 microgm PO DAILY 10/05/16 11/09/16 11/09/16 History Metoclopramide HCl [Reglan] 10 mg PO TID 10/05/16 11/09/16 11/09/16 History Metoprolol [Lopressor] 25 mg PO BID 10/05/16 11/09/16 11/09/16 History - History of Present Illness-Resp Nature of Presenting Problem: 51 yo WF is brought to ED by EMS after becoming somnolent during her morning bath, her full-time caregiver checking her O2 sats, and her sats not registering on the pulse ox. Caregiver reports she tested it on herself as well , and it did work. Caregiver reports that pt had been off of home O2 during the day but that beginning yesterday, she was put back on it due to difficulty breathing. Pt had a trach in place but reportedly pulled it out 2 weeks ago, and it has not been replaced. 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 Upon arrival to ED, pt is responsive to O2 via nasal cannula. She smiles and does not appear to be in pain. Severity in ED: reports: moderate Onset/Duration: reports: abrupt, just prior to arrival Timing: reports: improving Cough Quality/Degree: reports: no cough Episode Frequency: frequent episodes Current Respiratory Medication Therapy: Initiated A/A nebulizer, Initiated other (home O2) Modifying Factors: improves with: oxygen Associated Symptoms: reports: shortness of breath Similar Symptoms Previously?: Yes Recently seen or treated by another doctor?: Yes (Pt is under routine medical supervision.) Review of Systems - Adult - REVIEW OF SYSTEMS - ADULT ROS:: limited per condition Constitutional: reports: no symptoms reported. denies: fever, weight gain, weight loss Eyes: reports: no symptoms reported. denies: discharge, redness Ears, Nose, Mouth & Throat: reports: no symptoms reported. denies: ear discharge Cardiovascular: reports: poor circulation, syncope Respiratory: reports: shortness of breath, wheezing Gastrointestinal: reports: no symptoms reported. denies: diarrhea, vomiting Genitourinary: reports: other (urine appears cloudy from catheter). denies: discharge, hematuria Musculoskeletal: reports: no symptoms reported Integumentary: reports: skin sores/ulcer (bedsore with wound vac attached, on back; cholecystectomy surgical site has purulent discharge and erythema at the borders, nontender) Neurological: reports: no symptoms reported Psychiatric: reports: no symptoms reported Endocrine: reports: no symptoms reported. denies: change in skin pigment, excessive sweating Hematologic/Lymphatic: reports: no symptoms reported. denies: blood clots, prolonged bleeding Allergic/Immunologic: reports: no symptoms reported. denies: allergic reactions , hives All Other Systems: Reviewed and Negative Past History - Adult - PAST MEDICAL HISTORY-ADULT Review of Records: reports: Old Records Reviewed, Nursing Assessment Review, Medications Reviewed Major Childhood Illnesses: reports: denies history Cardiovascular: reports: CHF, HTN, TN (2) Respiratory: reports: other (Trachea) Endocrine/Immune: reports: Diabetes - PRIOR SURGERIES/PROCEDURES Surgical/Procedure History: reports: cholecystectomy (recent), other (trach; rigth foot 5 toes amputated) - IMMUNIZATION STATUS Childhood Immunizations: See Nurse Assessment Flu Vaccine: See Nurse Assessment - FAMILY HISTORY Family History: reviewed, not pertinent Physical Exam-General - PHYSICAL EXAM-ADULT Initial Vital Signs Reviewed: Yes - CONSTITUTIONAL General Appearance: alert, no apparent distress - EYES Eyes: PERRL/EOMI, pink conjunctivae - HEAD, EARS, NOSE, MOUTH & THROAT HENMT: normocephalic/atraumatic, moist mucous membranes - NECK Neck: non-tender, supple - RESPIRATORY Respiratory: chest non-tender, decreased breath sounds (L side), rhonchi ( bilateral) - CARDIOVASCULAR Cardiovascular: regular rate, rhythm, no edema, systolic murmur (07/31) - GASTROINTESTINAL (ABDOMEN) Abdominal Exam: normal bowel sounds, non tender, soft, other (feeding tube in place, no signs of infection) - LYMPHATIC Lymphatic: no adenopathy - MUSCULOSKELETAL Back Exam: other (Pt baseline is nonmobile without assistance) Extremity: other (poor circulation noted bilaterally; R foot amputation of all tarsals) - SKIN Integumentary: other (bedsore with wound vac attached, on back; cholecystectomy surgical site has purulent discharge and erythema at the borders, nontender) - NEUROLOGIC Neurologic: grossly normal, other (Pt appears to be at her baseline, per caregiver) - PSYCHIATRIC Psych/Mental Status: normal mood/affect, other (Pt appears at her baseline, per caregiver) Progress - PLAN OF CARE/RESULTS Progress/Plan/Lab Results: Vital Signs - 8 hr 12/09/16 10:55 12/09/16 11:00 12/09/16 12:20 Temperature 98.6 F Pulse Rate 99 H 102 H Respiratory Rate 18 18 Blood Pressure 97/65 124/068 O2 Sat by Pulse Oximetry 100 98 12/09/16 13:36 12/09/16 14:52 12/09/16 15:10 Temperature Pulse Rate 105 H 107 H 102 H Respiratory Rate 18 22 20 Blood Pressure 091/042 110/057 O2 Sat by Pulse Oximetry 99 99 99 12/09/16 15:18 Temperature 99.0 F Pulse Rate Respiratory Rate Blood Pressure O2 Sat by Pulse Oximetry Laboratory Results - last 24 hr 12/09/16 12/09/16 12/09/16 11:10 11:10 11:10 WBC RBC Hgb Hct MCV MCH MCHC RDW Std Deviation Plt Count MPV Immature Gran % (Auto) Neut % (Auto) Lymph % (Auto) [place] % (Auto) Eos % (Auto) Baso % (Auto) Immature Gran # (Auto) Neut # (Auto) Lymph # (Auto) [place] # (Auto) Eos # (Auto) Baso # (Auto) Specimen Type Sample Site pH pCO2 pO2 HCO3 Base Excess Oxyhemoglobin ABG O2 Sat (Calculated) ABG O2 Saturation ABG Carboxyhemoglobin ABG Methemoglobin A-a O2 Difference Total Hemoglobin Lactate Liter Flow Blood Gas Modality FiO2 % Sodium 137 Potassium 4.6 Chloride 98 Carbon Dioxide 30 Anion Gap 9 BUN 49 H Creatinine 0.7 Estimated GFR/1.73 m2 > 60 BUN/Creatinine Ratio 70 Glucose 181 H Calculated Osmolality 291 Calcium 8.7 L Magnesium 2.1 Total Bilirubin 0.30 AST 20 ALT 22 Alkaline Phosphatase 261 H Creatine Kinase 32 Troponin T 0.039 Pzp-[id number]-Fbuazpaikdl Pept 5185 H Total Protein 8.0 Albumin 2.3 L Globulin 6.0 Albumin/Globulin Ratio 0.0 Plasma Lactate Urine Source Urine Color Urine Clarity Urine pH Ur Specific [place] Urine Protein Urine Ketones Urine Blood Urine Nitrite Urine Bilirubin Urine Urobilinogen Urine Microscopic RBC Urine WBC Urine Microscopic WBC Ur Epithelial Cells Urine Crystals Urine Bacteria Urine Casts Urine Yeast Urine Glucose 12/09/16 12/09/16 12/09/16 11:10 12:30 12:31 WBC 13.05 H RBC 3.49 L Hgb 8.7 L Hct 31.2 L MCV 89.4 MCH 24.9 L MCHC 27.9 L RDW Std Deviation 17.6 H Plt Count 517 H MPV 9.9 Immature Gran % (Auto) 0.5 Neut % (Auto) 70.0 Lymph % (Auto) 18.4 L R[place] % (Auto) 7.4 Eos % (Auto) 3.4 Baso % (Auto) 0.3 Immature Gran # (Auto) 0.07 H Neut # (Auto) 9.13 H Lymph # (Auto) 2.40 R[place] # (Auto) 0.96 H Eos # (Auto) 0.45 Baso # (Auto) 0.04 Specimen Type Sample Site pH pCO2 pO2 HCO3 Base Excess Oxyhemoglobin ABG O2 Sat (Calculated) ABG O2 Saturation ABG Carboxyhemoglobin ABG Methemoglobin A-a O2 Difference Total Hemoglobin Lactate Liter Flow Blood Gas Modality FiO2 % Sodium Potassium Chloride Carbon Dioxide Anion Gap BUN Creatinine Estimated GFR/1.73 m2 BUN/Creatinine Ratio Glucose Calculated Osmolality Calcium Magnesium Total Bilirubin AST ALT Alkaline Phosphatase Creatine Kinase Troponin T Nbt-[id number]-Pzfsgodtzmp Pept Total Protein Albumin Globulin Albumin/Globulin Ratio Plasma Lactate 1.3 Urine Source CLEAN CATCH Urine Color YELLOW Urine Clarity CLEAR Urine pH 5.0 Ur Specific [place] 1.015 Urine Protein NEGATIVE Urine Ketones NEGATIVE Urine Blood NEGATIVE Urine Nitrite POSITIVE A Urine Bilirubin NEGATIVE Urine Urobilinogen NORMAL Urine Microscopic RBC <10 Urine WBC 2+ A Urine Microscopic WBC 10-20 A Ur Epithelial Cells >10 A Urine Crystals NONE SEEN Urine Bacteria 4+ Urine Casts NONE SEEN Urine Yeast NONE SEEN Urine Glucose NEGATIVE 12/09/16 12:56 WBC RBC Hgb Hct MCV MCH MCHC RDW Std Deviation Plt Count MPV Immature Gran % (Auto) Neut % (Auto) Lymph % (Auto) [place] % (Auto) Eos % (Auto) Baso % (Auto) Immature Gran # (Auto) Neut # (Auto) Lymph # (Auto) [place] # (Auto) Eos # (Auto) Baso # (Auto) Specimen Type ARTERIAL Sample Site R BRACHIAL pH 7.43 pCO2 53 H* pO2 98 HCO3 32.5 H Base Excess 9.7 H Oxyhemoglobin 94.5 L ABG O2 Sat (Calculated) 11.3 L ABG O2 Saturation 98.5 ABG Carboxyhemoglobin 3.00 H ABG Methemoglobin 1.1 A-a O2 Difference 64.0 Total Hemoglobin 8.4 L Lactate 1.00 Liter Flow 3.0 Blood Gas Modality CANNULA FiO2 % 32.0 Sodium Potassium Chloride Carbon Dioxide Anion Gap BUN Creatinine Estimated GFR/1.73 m2 BUN/Creatinine Ratio Glucose Calculated Osmolality Calcium Magnesium Total Bilirubin AST ALT Alkaline Phosphatase Creatine Kinase Troponin T [id number] Pept Total Protein Albumin Globulin Albumin/Globulin Ratio Plasma Lactate Urine Source Urine Color Urine Clarity Urine pH Ur Specific [place] Urine Protein Urine Ketones Urine Blood Urine Nitrite Urine Bilirubin Urine Urobilinogen Urine Microscopic RBC Urine WBC Urine Microscopic WBC Ur Epithelial Cells Urine Crystals Urine Bacteria Urine Casts Urine Yeast Urine Glucose Orders Category Date Time Status Cardiac Monitoring DIRECTED Care 12/09/16 11:23 Active Oxygen Therapy- ED Nursing DIRECTED Care 12/09/16 11:23 Active Saline Loc NOW Care 12/09/16 11:23 Active CHEST-PORTABLE [RAD] Stat Exams 12/09/16 11:24 Completed ABG [RESP] Routine Lab 12/09/16 12:56 Completed BLOOD CULTURE [BLDCUL] Stat Lab 12/09/16 12:03 Ordered CBC WITH ELECTRONIC DIFF [HEME] Stat Lab 12/09/16 11:10 Completed CK PROFILE [SP CHEM] Stat Lab 12/09/16 11:10 Completed COMPREHENSIVE METABOLIC PANEL [CHEM] Stat Lab 12/09/16 11:10 Completed LACTATE, PLASMA [CHEM] Stat Lab 12/09/16 12:31 Completed MAGNESIUM [CHEM] Stat Lab 12/09/16 11:10 Completed PRO B-NATRIURETIC PEPTIDE Stat Lab 12/09/16 11:10 Completed TROPONIN T Stat Lab 12/09/16 11:[address] W/POSS RFLX CULT [URINALYSIS] Stat Lab 12/09/16 12:30 Completed URINE CULTURE [RM] Routine Lab 12/09/16 13:11 Ordered Furosemide [Lasix] Med 12/09/16 13:46 Discontinued 40 mg IV NOW ONE Levalbuterol Neb [Xopenex Neb] Med 12/09/16 14:58 Discontinued 1.25 mg .ROUTE .STK-MED ONE Levalbuterol Neb [Xopenex Neb] Med 12/09/16 12:04 Discontinued 1.25 mg INH NOW ONE Levofloxacin [Levaquin] 750 mg Med 12/09/16 12:03 Discontinued 0.9% Sodium Chloride Inj [Ns] 150 ml IV NOW EKG [EKG] Stat Ther 12/09/16 11:23 Draft Result Diagrams: 12/09/16 11:10 12/09/16 11:10 - XRAY 1 XRAY Study: Chest Impression: Abnormal ( FINDINGS: There is a small right-sided pleural effusion and a moderate sized left-sided pleural effusion. There is atelectasis versus infiltrate in the lower lungs. The heart is not enlarged. The vessels are not distended.) XRAY Interpretation: Pleural effusions with basilar atelectasis (per radiology) - CONSULTS/PCP/HOSPITALIST Notification #1 *Consult/PCP/Hospitalist*: Dr. Augustine Time Discussed: 14:40 Reason/Comments: Admit Consult Disposition: Will see in ED Departure - Departure Date of Disposition Decision: 12/09/16 Time of Disposition Decision: 03:00 DIAGNOSIS: Pleural effusion Disposition: ADMITTED INPATIENT 09 Certified Medical Emergency: Emergent Condition: Fair Referrals and Follow-Ups: UNKNOWN, [Primary Care Provider] - - Critical Care Note This patient required my direct & personal management of CC.: No Attestation - Physician/ JACKIE Attestation Patient care was provided by Advanced Practice Provider:: No The physician spent face to face time with patient:: Yes Advanced Practice Provider documentation review:: Supervising physician onsite and consulted in the evaluation and care of this patient. The physician did have a face to face encounter with the patient. This chart was documented by the indicated scribe, (Kathy Pompa Scribe) and accurately reflects the services I performed and decisions made by me, Bharat Maddox MD, as attested by the provider's signature.
--- NOTE | 2016-12-09 17:39 | HISTORY AND PHYSICAL ---
PRIMARY CARE PHYSICIAN: Aaron Vargas MD CHIEF COMPLAINT: Shortness of breath despite her home O2. HISTORY OF PRESENTING ILLNESS: This is a 51-year-old female who presents to [facility] ER today with complaints of shortness of breath that progressively worsened despite having her O2. She was admitted to the hospital on 10/05/2016 with an infected decubitus ulcer and a questionable infected colostomy site. She has a history of anoxic brain injury from a cardiopulmonary arrest. She had been in 2 LTAC facilities recently, 1 in [place], [place] and 1 in [place] where she was discharged on 09/30/2016. She comes in today after she was being given her morning bath by her full-time caregiver. They were checking her O2 saturations because of her complaints of shortness of breath and her saturation was not registering. They checked the medications she in on the caregiver and it worked. Caregiver reported that the patient had been off of home O2 during the day but that beginning yesterday, she was put back on it due to difficulty breathing. She had a tracheostomy in place previously but reportedly pulled about 2 weeks ago and it has not been replaced. It is covered with a dry dressing at this time. She is noted to have had 2 MIs in the past, one of which resulted in her no longer being able to care for herself due to the anoxic brain injury. So her workup today showed a white blood cell count of 13.05. Her ProBNP was 5185. Her urinalysis showed positive nitrites, with 2+ white blood cells, and 4+ bacteria. She had a chest x-ray today that showed pleural effusion with basilar atelectasis versus infiltrate in the lower lungs, so she will be admitted to the medical unit for further evaluation and treatment. It is noted that she has a wound VAC in place to her sacral decubitus ulcer and she did bring her wound VAC with her to the hospital. So, we will continue those treatments as ordered. PAST MEDICAL HISTORY: Includes diabetes type 2, severe peripheral vascular disease, coronary artery disease, [place] x2. Anoxic brain injury secondary to a cardiac arrest, hypothyroidism, hypertension, hyperlipidemia, and a sacral decubitus ulcer that required debridement and now with a wound VAC, treatment ongoing. PAST SURGICAL HISTORY: Multiple lower extremity digit amputations, a tracheostomy placement, but the tracheostomy has come out and has not been replaced as of 2 weeks ago, PEG tube placement and colostomy, bilateral tubal ligation, and a hysterectomy. FAMILY HISTORY: Noncontributory. SOCIAL HISTORY: She currently lives with her . Denies any tobacco, alcohol, or illicit drug use. ALLERGIES: Penicillin. HOME MEDICATIONS: Will be verified and restarted as indicated. LABORATORY DATA: Showed a white blood cell count of 13.05, a hemoglobin of 8.7 , hematocrit 31.2, platelets 517,000. ABG with a pH of 7.43, pCO2 of 53, O2 of 98 and a bicarb of 32.5, sodium 137, potassium 4.6, chloride 98, CO2 30, BUN of 49, creatinine 0.7, glucose 181 , magnesium of 2.1. Troponin of 0.039 with a creatine kinase of 32. ProBNP of 5185. Plasma lactate of 1.3. Urinalysis with positive nitrites, 2+ white blood cells, 4+ bacteria. A chest x -ray today with pleural effusions and basilar atelectasis versus infiltrate in the lower lungs. REVIEW OF SYSTEMS: She denied any fever, chills, blurred vision, dizziness, chest pain, cough, she has been positive for shortness of breath despite her home O2 use. She denied any abdominal pain, constipation, diarrhea, burning or hurting with urination. PHYSICAL EXAMINATION: VITAL SIGNS: Showed a temperature of 98.6 degrees, a pulse of 99 respirations 18, blood pressure 97/65, saturating 100% on room air. GENERAL: This is a 51-year-old female who is lying in the bed, is able answer yes or no questions appropriately. at the bedside to give all of health history and review of previous medical record. HEENT: Normocephalic and atraumatic. Pupils are equal, round, reactive to light. Extraocular movements are intact. Oropharynx and nares are clear. NECK: Supple. She does have a dry dressing over her tracheostomy site. Tracheostomy came out 2 weeks ago and has not been replaced. She is doing well with that. LUNGS: With some bilateral rhonchi. Decreased breath sounds more on her left than right. Equal lung expansion and chest wall movement. HEART: With a systolic murmur 5 out of a 6. No rubs or gallops identified. ABDOMEN: Soft, nontender, nondistended. Bowel sounds are present x4 quadrants. Her PEG tube is noted to be in place with no signs of infection. EXTREMITIES: No clubbing, cyanosis or edema. SKIN: Again, she had a decubitus ulcer to her sacral area with wound VAC attached on her back. NEUROLOGICAL: At her baseline. Per the caregiver. ASSESSMENT: 1. Dyspnea. 2. Pleural effusions. 3. Bilateral lower lobe pneumonia. 4. Urinary tract infection. 5. Decubitus ulcer, sacral area with wound vacuum-assisted closure. PLAN: She will be admitted to the medical unit. Placed on telemetry. O2 per protocol. We will verify her tube feeding with the family also. We will recheck a CBC and a BMP in the a.m. We will place on Lasix 40 mg IV b.i.d. Levaquin 750 mg IV q.24 hours. She received her 1st dose in the emergency room. We will verify her home medications and restart those as appropriate also and will check a chest x-ray, portable in the a.m. Her blood culture and urine culture are both pending at this time. Patient seen and examined by me face to face, all the lab work, images, vitals signs, were reviewed, she used to have a tracheostomy tube but it has been removed and basically is open, she has been getting 1.8 liters or free water plus her nutrition., and as per the before the cardiac arrest she used to be on diuretics, I believe she should be on diuretics, I had a large conversation with the about her prognosis, about 40 minutes, we discused her DNR status as well, she will be DNR 1, I agree with all the assessment and plan, Jorge Lagos MD Dictated by KATHLEEN Go for Jorge Benton MD cc: KATHLEEN Go MD [facility]
[2016-12-09] MEDS: DUONEB (A & A) INH SCH ×2 (19:47→23:25)
[2016-12-09] MEDS: REGLAN PO SCH (21:49)
[2016-12-09] MEDS: NEURONTIN PO SCH (21:49)
[2016-12-10] MEDS: DUONEB (A & A) INH SCH ×6 (03:42→23:07)
[2016-12-10 05:43] LABS: BASO% 0.2 % (0.0-0.8); EOS% 1.5 % (0.0-10.0); HEMATOCRIT 28.4 % (37.0-47.0); IMM GRAN# 0.06 X1000 (0.0-0.04); IMM GRAN% 0.4 % (0.0-0.5); LYMPH# 2.45 X1000 (1.2-3.4); LYMPH% 17.8 % (20.5-51.1); MANUAL DIFF NEEDED? NO; MCH 25.1 PG (27-31); MCHC 28.2 g/dL (33-37); MONO# 1.16 X1000 (0.11-0.59); MONO% 8.4 % (1.7-9.3); NEUT% 71.7 % (42.2-75.2); PLT 486 X1000 (130-400); RBC 3.19 XMIL (4.2-5.4)
[2016-12-10 06:08] LABS: AGAP 9; ALBUMIN 2.1 g/dL (3.5-5.0); ALKALINE PHOSPHATASE 199 U/L (32-104); BUN 41 mg/dL (8-22); CALCIUM 8.5 mg/dL (8.8-10.2); CHLORIDE 102 mmol/L (98-107); COSMO 295; GOT 17 U/L (10-30); GPT 15 U/L (10-36); POTASSIUM 3.9 mmol/L (3.5-5.1); SODIUM 143 mmol/L (136-145); TCO2 32 mmol/L (25-35); TOTAL PROTEIN 7.4 g/dL (6.3-8.3)
[2016-12-10] MEDS: SYNTHROID PO SCH (06:11)
[2016-12-10] MEDS: TYLENOL PO PRN (06:11)
[2016-12-10] MEDS: LASIX IV SCH (09:16)
[2016-12-10] MEDS: REGLAN PO SCH ×2 (09:18→21:00)
[2016-12-10] MEDS: ASPIRIN PO SCH (09:18)
[2016-12-10] MEDS: LIPITOR PO SCH (09:18)
[2016-12-10] MEDS: PAXIL PO SCH (09:18)
[2016-12-10] MEDS: LANTUS INSULIN (PARKWAY) SUBQ SCH (09:19)
[2016-12-10] MEDS: LEVAQUIN 750 MG in NS 150 ML IV SCH (12:15)
--- NOTE | 2016-12-10 13:15 | PROGRESS NOTE ---
DATE: 12/10/2016 SUBJECTIVE: Today Ms. Blackwood herself continues to be nonverbal. The at the bedside thinks that she is improving. OBJECTIVE: Vital signs: Blood pressure is 103/55, pulse of 93, respirations 18, temperature 98.8 degrees. General: Ms. Blackwood 51-year-old female. She is in bed, does not seems to be in any remarkable distress. HEENT: Mucosa is pink and moist. Anicteric. Acyanotic. Neck: Supple. I did not appreciate any JVD. Chest: There is bilateral posterior crepitations. Cardiovascular: Regular rate and rhythm, maybe a 3/6 TR murmur. Extremities: No pedal edema. The right lower extremity has a transmetatarsal amputation. SERIALS LIBRARIAN: Patient is sleeping but is easily arousable, is nonverbal and does not follow any command. LABORATORY DATA: WBC is 13.75, hemoglobin 8.0, platelet count of 186,000. Chemistry is also reviewed completely unremarkable. Urine culture is negative. Blood culture preliminary is still negative. Chest x-ray this morning yesterday shows pleural effusions with bibasilar atelectasis. The patient is currently on levofloxacin, levothyroxine, aspirin, furosemide, atorvastatin. ASSESSMENT: 1. Dyspnea with pleural effusions likely secondary to diastolic heart failure. Patient had an echocardiogram in April 2016 which showed an ejection fraction of 55% with borderline concentric hypertrophic cardiomyopathy. We will continue with the diuretic therapy for now and repeat a chest x-ray in the morning. 2. Bibasilar infiltrate concerning for pneumonia. The patient is currently on antibiotics. 3. Decubitus ulcer on wound vacuum-assisted closure. 4. 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 cc: Saul Herndon MD
[2016-12-10] MEDS: NEURONTIN PO SCH (21:00)
[2016-12-11] MEDS: DUONEB (A & A) INH SCH ×6 (03:48→23:25)
[2016-12-11] MEDS: TYLENOL PO PRN (06:24)
[2016-12-11] MEDS: SYNTHROID PO SCH (06:25)
[2016-12-11 06:42] LABS: BASO% 0.1 % (0.0-0.8); HEMATOCRIT 27.4 % (37.0-47.0); HEMOGLOBIN 7.7 g/dL (12.0-16.0); IMM GRAN# 0.04 X1000 (0.0-0.04); IMM GRAN% 0.3 % (0.0-0.5); LYMPH# 2.99 X1000 (1.2-3.4); LYMPH% 22.2 % (20.5-51.1); MCH 24.8 PG (27-31); MCHC 28.1 g/dL (33-37); MCV 88.1 FL (81-99); MONO# 1.16 X1000 (0.11-0.59); MONO% 8.6 % (1.7-9.3); MPV 10.1 FL (7.4-10.4); NEUT% 65.8 % (42.2-75.2); PLT 463 X1000 (130-400); RBC 3.11 XMIL (4.2-5.4)
[2016-12-11 06:59] LABS: AGAP 8; BUN 40 mg/dL (8-22); CALCIUM 8.4 mg/dL (8.8-10.2); CHLORIDE 98 mmol/L (98-107); COSMO 290; POTASSIUM 3.7 mmol/L (3.5-5.1); SODIUM 139 mmol/L (136-145); TCO2 34 mmol/L (25-35)
[2016-12-11 09:06] LABS: MANUAL DIFF NEEDED? NO
[2016-12-11] MEDS: LANTUS INSULIN (PARKWAY) SUBQ SCH (09:41)
[2016-12-11] MEDS: LIPITOR PO SCH (09:41)
[2016-12-11] MEDS: PAXIL PO SCH (09:41)
[2016-12-11] MEDS: LASIX IV SCH (09:41)
[2016-12-11] MEDS: ASPIRIN PO SCH (09:41)
[2016-12-11] MEDS: REGLAN PO SCH ×2 (09:41→22:29)
[2016-12-11] MEDS: LEVAQUIN 750 MG in NS 150 ML IV SCH (13:00)
--- NOTE | 2016-12-11 19:25 | PROGRESS NOTE ---
DATE: 12/11/2016 SUBJECTIVE: Today Ms. Blackwood was a little bit more alert and more conversational. This was actually the very 1st time I was able to hear her saying fine. OBJECTIVE: Vital signs: Blood pressure is 103/49, respirations 18, temperature is 97.6 degrees and pulse is 102. General: Ms. Blackwood is a 51-year-old female. She is in bed. She does not seem to be in any distress. HEENT: Mucosa is slightly dry. Anicteric. Acyanotic. Neck: Supple. Chest: Good air entry bilaterally. There is a few bibasilar crepitations. Cardiovascular: Regular rate and rhythm. There is 3/6 TR murmur. Abdomen: Soft. There is a PEG tube in place and there is a left side ileostomy bag which has fecal material in there. Extremities: The right lower extremity has a transmetatarsal amputation. SYSTEM ANALYST: Patient is awake and alert. she was able to whisper a few words but does not really follow any commands. LABORATORY DATA: WBC is 13.48, hemoglobin is 7.7, platelet count of 463,000. Chemistry is also reviewed, completely unremarkable. ASSESSMENT: 1. Dyspnea with pleural effusions likely secondary to diastolic heart failure. Echocardiogram in April 2016 did show ejection fraction of 55% with borderline concentric hypertrophic cardiomyopathy. For now we are going to continue with the gentle diuresis. 2. Bibasilar infiltrates concerning for pneumonia. The patient is on antibiotics. 3. Decubitus ulcer on wound vacuum-assisted closure. 4. 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 5. Diabetes mellitus. Will continue with the current insulin regimen including glargine with sliding scale. 6. Dyslipidemia. Patient is on atorvastatin. So I think in general Ms. Blackwood is doing a lot better. We are going to repeat a chest x-ray tomorrow morning to look at the lung parenchyma. I think if she continues to be stable we might be able to discharge her either tomorrow or Tuesday depending on her clinical course. cc: Saul Herndon MD
[2016-12-11] MEDS: NEURONTIN PO SCH (22:30)
[2016-12-12] MEDS: DUONEB (A & A) INH SCH ×6 (03:40→23:21)
[2016-12-12] MEDS: SYNTHROID PO SCH (06:56)
[2016-12-12] MEDS: PAXIL PO SCH (09:28)
[2016-12-12] MEDS: LANTUS INSULIN (PARKWAY) SUBQ SCH (09:28)
[2016-12-12] MEDS: LASIX IV SCH (09:28)
[2016-12-12] MEDS: LIPITOR PO SCH (09:28)
[2016-12-12] MEDS: ASPIRIN PO SCH (09:28)
[2016-12-12] MEDS: REGLAN PO SCH ×2 (09:28→22:10)
[2016-12-12] MEDS: LEVAQUIN 750 MG in NS 150 ML IV SCH (12:54)
--- NOTE | 2016-12-12 13:17 | Diag Imaging Result Doc PS360 ---
EXAM: CHEST-PORTABLE HISTORY: CHF TECHNIQUE: AP portable at 1222 COMMENT: There are bilateral pleural effusions. There is alveolar opacity in both lower lobes and the lingula on the left. Compared to 12/09/2016 there has been some improvement with regard to the pleural fluid. The left heart border is more visible than it was previously. IMPRESSION: Improved pleural effusions. Pulmonary edema plus minus pneumonia. Electronically signed by Shaun Fields 12/12/2016 1:15 PM
--- NOTE | 2016-12-12 17:19 | PROGRESS NOTE ---
DATE: 12/12/2016 SUBJECTIVE: Today Ms. Blackwood refers to be stable . There is no family member at the bedside and she is almost nonverbal. OBJECTIVE: Vitals: Blood pressure 127/77, pulse 90, respiration is 14, temperature 99.4 degrees. General: Ms. Blackwood is a 51-year-old female. She is in bed, not seemingly distressed. HEENT: Mucosa is pink and moist. Anicteric. Acyanotic. Neck: Supple. The tracheostomy tube is out. There is no JVD. Chest: Good air entry bilaterally. Few bibasilar crepitations. Cardiovascular: Regular rate and rhythm. There is a 3/6 TR murmur. Abdomen: Soft. PEG tube is in place and there is a left-sided colostomy bag with some fecal material. Extremities: No pedal edema. Right lower extremity has a transmetatarsal amputation. [employer]: Patient is awake and alert, whispers almost non comprehensive words. LABORATORY DATA: Glucose is 236. ASSESSMENT: 1. Dyspnea with pleural effusion likely secondary to diastolic heart failure. Patient has an echocardiogram April this year which shows 55% with borderline concentric hypertrophic cardiomyopathy. She is currently on diuretic therapy. We going to continue with gentle diuresis. I think patient has significantly improved and she will probably be ready for discharge tomorrow. 2. Bibasilar infiltrates concerning for pneumonia. Patient is on levofloxacin , today is day 2. We plan to treat it for a total of 7 days. This can be switched to oral levofloxacin whenever patient is ready for discharge. 3. Decubitus ulcer on wound vacuum-assisted closure. 4. 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 5. Diabetes mellitus. Glucose is not very well controlled. We are going to increase the glargine to 60 today. 6. Dyslipidemia. Will continue with atorvastatin. So I think in general Ms Blackwood is stable. A recent chest x-ray shows a slight improvement from the pleural effusion. We are going to continue with the diuretic therapy, continue with the antibiotics. I think by tomorrow patient should be ready for discharge home. cc: Saul Herndon MD MTDD
[2016-12-12] MEDS: NEURONTIN PO SCH (22:10)
[2016-12-13] MEDS: DUONEB (A & A) INH SCH ×6 (03:18→23:25)
[2016-12-13] MEDS: SYNTHROID PO SCH (06:29)
[2016-12-13] MEDS: LANTUS INSULIN (PARKWAY) SUBQ SCH (10:16)
[2016-12-13] MEDS: LASIX IV SCH (10:16)
[2016-12-13] MEDS: PAXIL PO SCH (10:17)
[2016-12-13] MEDS: PEPCID PO SCH (10:17)
[2016-12-13] MEDS: REGLAN PO SCH ×2 (10:17→21:27)
[2016-12-13] MEDS: ASPIRIN PO SCH (10:17)
[2016-12-13] MEDS: LEVAQUIN 750 MG in NS 150 ML IV SCH (11:47)
--- NOTE | 2016-12-13 20:22 | PROGRESS NOTE ---
DATE: 12/13/2016 SUBJECTIVE: Patient without any new complaints. She is nonverbal. PHYSICAL: Vital signs: Temperature 99, pulse 106, blood pressure 114/58, saturations 97% on 3 L. General: Patient is in no respiratory distress. HEENT: Oropharynx clear. Normocephalic, atraumatic. Neck: Supple. No JVD. She does have some surrounding erythema around her tracheostomy tube. CV: Regular rate with a 3/6 murmur. Chest: Relatively clear, nonlabored. Abdomen: Soft. PEG tube is in place. Extremities: Right lower extremity has a transmetatarsal amputation. Neurologic: Patient is awake, alert. She does whisper at times. ASSESSMENT: 1. Hypoxemia. Patient had a episode last night of low oxygenation. She dropped down in the 70%. She was placed on nonrebreather, quickly improved at 99%. She currently is on a nasal cannula and still saturating in the low 90s. 2. Bibasilar infiltrate. She is on antibiotic. She continues to improve. 3. Decubitus ulcer. 4. Dyslipidemia. PLAN: We will continue patient on antibiotics. Continue oxygen. Continue to attempt to wean her oxygen, get physical therapy involved. Further orders as needed. cc: Khang Mackey MD
[2016-12-13] MEDS: LIPITOR PO SCH (21:27)
[2016-12-13] MEDS: NEURONTIN PO SCH (21:27)
[2016-12-14] MEDS: DUONEB (A & A) INH SCH ×6 (03:36→23:05)
[2016-12-14] MEDS: SYNTHROID PO SCH (06:51)
[2016-12-14 07:33] LABS: HEMATOCRIT 28.8 % (37.0-47.0); HEMOGLOBIN 8.1 g/dL (12.0-16.0); MCH 24.5 PG (27-31); MCHC 28.1 g/dL (33-37); MPV 9.9 FL (7.4-10.4); RBC 3.31 XMIL (4.2-5.4)
[2016-12-14 07:46] LABS: ALBUMIN 2.2 g/dL (3.5-5.0); CALCIUM 8.6 mg/dL (8.8-10.2); MAGNESIUM 2.1 mg/dL (1.5-2.7); POTASSIUM 3.9 mmol/L (3.5-5.1); TOTAL BILIRUBIN 0.2 mg/dL (0.20-1.00); TOTAL PROTEIN 7.6 g/dL (6.3-8.3)
--- NOTE | 2016-12-14 07:54 | Diag Imaging Result Doc PS360 ---
EXAM: CHEST-PORTABLE INDICATION: hypoxia TECHNIQUE: One view COMPARISON: 12/12/2016 FINDINGS: There are persistent bilateral pleural effusions, larger on the left. The left pleural fluid collection appears slightly larger than the previous study. However, this may be due to positioning. There is stable atelectasis in the right midlung zone. The cardiac silhouette is stable. IMPRESSION: Possible marginal increase in size of the left pleural fluid collection. Stable chest, otherwise. Electronically signed by Jerod Zuniga 12/14/2016 7:52 AM
[2016-12-14] MEDS: LASIX IV SCH (09:14)
[2016-12-14] MEDS: PAXIL PO SCH (09:14)
[2016-12-14] MEDS: LANTUS INSULIN (PARKWAY) SUBQ SCH (09:14)
[2016-12-14] MEDS: REGLAN PO SCH ×2 (09:14→20:02)
[2016-12-14] MEDS: PEPCID PO SCH (09:14)
[2016-12-14] MEDS: ASPIRIN PO SCH (09:14)
[2016-12-14] MEDS: DOXYCYCLINE 100 MG in NS 250 ML IV SCH ×2 (09:15→20:02)
[2016-12-14] MEDS: LEVAQUIN 750 MG in NS 150 ML IV SCH (12:34)
--- NOTE | 2016-12-14 18:49 | PROGRESS NOTE ---
DATE: 12/14/2016 SUBJECTIVE: Patient was seen this morning. She is still lying in the bed. She is essentially nonverbal. She does smile when stimulated. OBJECTIVE: Temperature 99, pulse 105, respiratory 22, BP 112/63, saturation 97% on 3 L which is improved. She is no longer on a Ventimask at this point. HEENT: Normocephalic. Neck supple. Positive tracheotomy wound. Her tracheostomy has been removed at this point. CV: Regular rate with a 3/6 murmur. Chest relatively clear and nonlabored. No wheezing. No crackles. Abdomen: Soft, nondistended. Extremities: Moves all extremities. Neurologic: No focal changes. ASSESSMENT: 1. Hypoxic respiratory failure, improved. 2. Diastolic congestive heart failure with an ejection fraction of 55%. 3. Bilateral infiltrates with pneumonia. We will continue antibiotics. 4. Dyslipidemia. 5. Diabetes. 6. 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 Overall patient continues to improve. At this point I do not believe that she is going to have much improvement from here. We will begin looking for rehab. cc: Khang Mackey MD
[2016-12-14] MEDS: LIPITOR PO SCH (20:02)
[2016-12-14] MEDS: NEURONTIN PO SCH (20:02)
[2016-12-15] MEDS: DUONEB (A & A) INH SCH ×5 (03:37→19:55)
[2016-12-15] MEDS: SYNTHROID PO SCH (06:26)
[2016-12-15] MEDS: LASIX IV SCH (10:14)
[2016-12-15] MEDS: ASPIRIN PO SCH (10:15)
[2016-12-15] MEDS: LANTUS INSULIN (PARKWAY) SUBQ SCH ×2 (10:15→21:37)
[2016-12-15] MEDS: REGLAN PO SCH ×2 (10:15→21:37)
[2016-12-15] MEDS: DOXYCYCLINE 100 MG in NS 250 ML IV SCH ×2 (10:16→21:37)
[2016-12-15] MEDS: PAXIL PO SCH (10:16)
[2016-12-15] MEDS: PEPCID PO SCH (10:16)
[2016-12-15] MEDS: LEVAQUIN 750 MG in NS 150 ML IV SCH (14:05)
--- NOTE | 2016-12-15 20:10 | CONSULTATION ---
DATE OF CONSULTATION: 12/15/2016 HISTORY OF PRESENT ILLNESS: This is a 51-year-old female, known to me with an unfortunate story and medical history. She underwent a cardiac arrest as a resulting anoxic brain injury, persistent vegetative state. She had a tracheostomy in the past, decubitus wound requiring fecal diversion and PEG tube for enteral nutrition. I have seen her a couple months ago for decubitus wound on her sacrum that we debrided and placed a wound VAC and have also been ordering ostomy supplies for her as well through my office. Have not seen her as an outpatient due to some mobility issues, but overall the caregiver today states her wound is doing well. She began having some fevers and leukocytosis, brought the emergency room and she is being treated for urinary tract infection and pneumonia. Apparently she pulled out her tracheostomy and doing okay from this standpoint. They placed an occlusive dressing over this. The caregiver has seen the wound several times and thinks it is healing well. Looks significantly better than it has in the past and the wound VAC changes are going well. MEDICAL HISTORY: Type 2 diabetes, peripheral vascular disease, coronary artery disease, history of MIs and anoxic brain injuries, hypothyroidism, hypertension, hyperlipidemia, sacral decubitus. SURGICAL HISTORY: Multiple digital amputations, tracheostomy, PEG tube, colostomy, tubal ligation, hysterectomy. SOCIAL HISTORY: is very involved in her care. She has a caregiver that is here as well. No tobacco, alcohol or drugs. REVIEW OF SYSTEMS: Review of systems unobtainable, but after reviewing the record, I do not see any other factors. FAMILY HISTORY: Is unobtainable. PHYSICAL EXAMINATION: Vital Signs: Temperature 97.9, pulse has been in the low 100s, blood pressure 196/59, oxygen saturation, she is on nasal cannula, saturating in the 90s. General: She is nonresponsive, but in no acute distress. Cardiovascular: Normal rate, regular rhythm. Pulmonary: She has tracheostomy site with an occlusive dressing, but she has no audible respirations and seems to be breathing comfortably. Abdomen: Soft, nontender, with no rigidity. Ostomy is pink and viable in left lower quadrant with appropriate fitting appliance here. Some lower extremity edema. Her wound VAC is in place in her sacral wound. I do not see any cellulitis around this. It is tracking up the left. There is a small skin tear on the left flank. LABS: Reviewed. White count 10, hematocrit 28, creatinine is 1.0, glucose has been anywhere from 200-300, albumin is 2.2. ASSESSMENT AND PLAN: This is a 48-year-old female with anoxic brain injury, persistent vegetative state and decubitus wound. VAC changes are going well. She is scheduled for a change tomorrow. Will examine this after the nurse takes this down and we can make evaluation whether she needs debridement of this to facilitate ongoing healing. Otherwise, she is being treated for pneumonia and urinary tract infection. We will continue to follow along. cc: Chris Mcmanus MD
[2016-12-15] MEDS: LIPITOR PO SCH (21:37)
[2016-12-15] MEDS: NEURONTIN PO SCH (21:37)
[2016-12-16] MEDS: DUONEB (A & A) INH SCH ×7 (00:13→23:19)
--- NOTE | 2016-12-16 04:39 | PROGRESS NOTE ---
DATE: 12/16/2016 SUBJECTIVE: The patient is not quite as awake or alert this morning, although her is in the room. He notes that this is very common for her and that most if the time, she is very difficult to arouse but after arrival, she will be more verbal and more awake. OBJECTIVE: Vital Signs: Temperature 98.5, pulse 100, respiratory 16, BP 108/63. General: Patient is awake but not alert this morning. Does not respond verbally. HEENT: Normocephalic, atraumatic. RABIA. Neck: Supple. CV: Regular rate. Positive 3/6 systolic murmur. Chest: Relatively nonlabored. No wheezing. No crackle. Extremities: Moves all extremities. She is noted to have a transmetatarsal amputation on the right. LABS: Hemoglobin and hematocrit is stable at 8 and 28. WBCs 13. CMP is essentially negative. ASSESSMENT: 1. Dyspnea with pleural effusion. 2. Hypoxemia. Patient bounces back and forth between nasal cannula and a Ventimask mask currently. Currently she is on a Ventimask saturating in the mid 90%. 3. Bibasilar infiltrates. Appears improving of her recent chest x-ray. 4. Bedbound due to recent cardiac arrest and subsequent sequelae. 5. Dyslipidemia. PLAN: We will continue patient in the hospital for the next day or 2 on IV antibiotics. We will reassess chest x-ray, labs and will follow. Discussed with patient's plans. He currently plans on taking her back home. cc: Khang Mackey MD
[2016-12-16] MEDS: SYNTHROID PO SCH (06:02)
[2016-12-16 06:05] LABS: HEMATOCRIT 29.7 % (37.0-47.0); HEMOGLOBIN 8.2 g/dL (12.0-16.0); MCH 24.4 PG (27-31); MCHC 27.6 g/dL (33-37); MCV 88.4 FL (81-99); MPV 9.7 FL (7.4-10.4); RBC 3.36 XMIL (4.2-5.4)
[2016-12-16 06:23] LABS: AGAP 8; ALBUMIN 2.2 g/dL (3.5-5.0); ALKALINE PHOSPHATASE 185 U/L (32-104); BUN 39 mg/dL (8-22); CALCIUM 8.3 mg/dL (8.8-10.2); CHLORIDE 102 mmol/L (98-107); COSMO 302; GOT 12 U/L (10-30); GPT 11 U/L (10-36); POTASSIUM 4.2 mmol/L (3.5-5.1); SODIUM 144 mmol/L (136-145); TCO2 34 mmol/L (25-35); TOTAL PROTEIN 6.8 g/dL (6.3-8.3)
[2016-12-16] MEDS: REGLAN PO SCH ×2 (09:07→21:39)
[2016-12-16] MEDS: DOXYCYCLINE 100 MG in NS 250 ML IV SCH ×2 (09:07→19:44)
[2016-12-16] MEDS: LASIX IV SCH (09:08)
[2016-12-16] MEDS: LANTUS INSULIN (PARKWAY) SUBQ SCH ×2 (09:08→21:39)
[2016-12-16] MEDS: PAXIL PO SCH (09:08)
[2016-12-16] MEDS: ASPIRIN PO SCH (09:08)
[2016-12-16] MEDS: PEPCID PO SCH (09:08)
[2016-12-16 09:33] LABS: ALLEN TEST NO
[2016-12-16] MEDS: LEVAQUIN 750 MG in NS 150 ML IV SCH (12:43)
[2016-12-16] MEDS: LIPITOR PO SCH (21:39)
[2016-12-16] MEDS: NEURONTIN PO SCH (21:40)
[2016-12-17] MEDS: DUONEB (A & A) INH SCH ×4 (03:13→15:11)
--- NOTE | 2016-12-17 05:44 | PROGRESS NOTE ---
DATE: 12/16/2016 SUBJECTIVE: Patient is lying in bed. She is sleeping this morning. She is not awake. OBJECTIVE: Vital signs: Temp 98.5, pulse 100, respiratory rate 16, BP 108/63, sat 98%. General: Patient is lying flat in the bed. She is in no respiratory distress. Neck: Supple. No JVD. CV: Regular rate with a 3/6 murmur. Chest: Relatively clear. Nonlabored. No crackles, no wheezing. Abdomen: Soft. Extremities: No edema. ASSESSMENT AND PLAN: 1. Hypoxemia, improving. Bibasilar infiltrates improving. 2. Decubitus ulcer. Continue treatment. 3. Diabetes. Her blood sugars have been elevated above 200s. We will increase her Lantus and in fact, will break it from 60 once a day and increase to 32 twice a day. Hopefully, she will be discharged home in the a.m. cc: Khang Mackey MD
[2016-12-17] MEDS: SYNTHROID PO SCH (06:07)
[2016-12-17] MEDS: PAXIL PO SCH (09:52)
[2016-12-17] MEDS: REGLAN PO SCH (09:52)
[2016-12-17] MEDS: PEPCID PO SCH (09:52)
[2016-12-17] MEDS: LASIX IV SCH (09:52)
[2016-12-17] MEDS: ASPIRIN PO SCH (09:52)
[2016-12-17] MEDS: DOXYCYCLINE 100 MG in NS 250 ML IV SCH (09:53)
[2016-12-17] MEDS: LANTUS INSULIN (PARKWAY) SUBQ SCH (10:30)
[2016-12-17] MEDS: LEVAQUIN 750 MG in NS 150 ML IV SCH (14:16)
[2016-12-17 15:35] VITALS: BP 131/73
--- NOTE | 2016-12-17 17:18 | PROGRESS NOTE ---
DATE: 12/17/2016 SUBJECTIVE: Patient without any changes or any complaints. OBJECTIVE: Vital Signs: Reviewed. Temperature 98.5 degrees, pulse 100, respiratory rate 16, BP 108/63, saturations of 99%, 95% on non-rebreather. General: The patient is lying flat in the bed. She is currently in no respiratory distress. Her notes that she looks back to her baseline and looks as good as she has since all of this started. HEENT: Normocephalic. Neck: Supple. No JVD. CV: Regular rate. No murmurs. Chest: Clear. Nonlabored. Abdomen: Soft. Extremities: No edema. Skin: No rashes. ASSESSMENT: 1. Hypoxemia with recent hypoxic respiratory failure. We will continue to attempt to wean down her oxygen and see how she does. 2. Basilar infiltrates, improving. We will continue her on doxycycline and Levaquin p.o. for her pneumonia. 3. Decubitus ulcer. We will continue treatment. 4. Diabetes type 2. Blood sugars are slightly better once increasing her Lantus. cc: Khang Mackey MD
== END 2016-12-17 17:25 | disposition home health service (06) ==
LOC: P.ED 10:53 → P.MEDSURG 15:57 → SUATTDRO 15:57 → P.MEDSURG 16:49
PROVIDERS: ATTEND Family Medicine